=== PATIENT | female | born 1955 | race Caucasian/White ===

== ENCOUNTER 2017-07-24 15:07 | Inpatient (IN) | payer MEDICARE, OTHER ==
[2017-07-24 17:29] LABS: Glucose,Whole Blood 192 mg/dL (75-99)
[2017-07-24 17:38] VITALS: BMI 30.4
[2017-07-24 19:06] LABS: INR 1.7 (<1.2); Prothrombin Time 16.3 sec (9.0-12.0)
[2017-07-24] MEDS: HYDROcodone/APAP 10-325MG 1 EACH TAB PO PRN (19:09)
[2017-07-24] MEDS ORDERED: WARFARIN 10 MG TAB PO ONE (20:00)
[2017-07-24] MEDS: BUDESONIDE 0.5 MG/2 ML NEBU INHALATION SCH (20:30)
[2017-07-24] MEDS: FORMOTEROL FUMARATE 20 MCG/2 ML NEBU INHALATION SCH (20:30)
[2017-07-24] MEDS: IPRATROPIUM-ALBUTEROL 3 ML NEB INHALATION SCH (20:30)
[2017-07-24] MEDS: ENOXAPARIN 80 MG/0.8 ML SYRINGE SQ SCH (21:09)
[2017-07-24] MEDS: MELATONIN 3 MG TABLET PO SCH (21:10)
[2017-07-24 21:23] LABS: Glucose,Whole Blood 157 mg/dL (75-99)
[2017-07-24] MEDS: INSULIN LISPRO (humaLOG) 300 UNIT/3 ML VIAL SQ SCH (21:54)
[2017-07-24] MEDS: methylPREDNISolone SOD SUCCI 40 MG/ML 1 ML VIAL IV SCH (23:40)
[2017-07-24] MEDS: ALBUTEROL NEBULIZED 2.5 MG/3 ML INHALATION PRN (23:56)
[2017-07-25] MEDS: HYDROcodone/APAP 10-325MG 1 EACH TAB PO PRN ×5 (00:03→23:19)
[2017-07-25 02:06] LABS: Glucose,Whole Blood 246 mg/dL (75-99)
[2017-07-25] MEDS: INSULIN LISPRO (humaLOG) 300 UNIT/3 ML VIAL SQ SCH ×5 (02:20→20:45)
[2017-07-25] MEDS: FORMOTEROL FUMARATE 20 MCG/2 ML NEBU INHALATION SCH ×2 (07:04→07:10)
[2017-07-25] MEDS: BUDESONIDE 0.5 MG/2 ML NEBU INHALATION SCH (07:04)
[2017-07-25] MEDS: IPRATROPIUM-ALBUTEROL 3 ML NEB INHALATION SCH ×2 (07:04→11:04)
[2017-07-25 07:34] LABS: Glucose,Whole Blood 141 mg/dL (75-99)
[2017-07-25] MEDS: ENOXAPARIN 80 MG/0.8 ML SYRINGE SQ SCH (08:24)
[2017-07-25] MEDS: VALSARTAN 160 MG TAB PO SCH (08:24)
[2017-07-25] MEDS: methylPREDNISolone SOD SUCCI 40 MG/ML 1 ML VIAL IV SCH ×3 (08:24→23:19)
[2017-07-25 10:39] LABS: Basophils % (A) 0 %; CH 29.3; CHCM 32.2; Eosinophils % (A) 0 %; HCT 39.9 % (34.0-46.0); HDW 2.88; HGB 13.2 gm/dL (11.4-16.0); Luc % (Auto) 2; Lymphocytes # (A) 1.4 k/uL (1.0-4.8); Lymphocytes % (A) 13 %; MCH 30.3 pg (25.0-35.0); MCHC 33.1 g/dL (31.0-37.0); MCV 91.7 fL (80.0-100.0); Mean Platelet Volume 6.8; Monocytes # (A) 0.6 k/uL (0-1.0); Monocytes % (A) 5 %; Neutrophils # (A) 9.2 k/uL (1.3-7.7); Neutrophils % (A) 81 %; RBC 4.35 m/uL (3.80-5.40); RDW 13.1 % (11.5-15.5); WBC 11.4 k/uL (3.8-10.6); WBC (Perox) 11.91
[2017-07-25 11:08] LABS: ALT 33 U/L (9-52); AST 21 U/L (14-36); Alkaline Phosphatase 141 U/L (38-126); Anion Gap 11 mmol/L; Blood Urea Nitrogen 31 mg/dL (7-17); Calcium 9.5 mg/dL (8.4-10.2); Carbon Dioxide 23 mmol/L (22-30); Chloride 105 mmol/L (98-107); Glucose 141 mg/dL (74-99); Non-African American GFR(MDRD) >60 (>60 ml/min/1.73 sqM); Potassium 4.8 mmol/L (3.5-5.1); Sodium 139 mmol/L (137-145); Total Bilirubin 0.4 mg/dL (0.2-1.3); Total Protein 6.9 g/dL (6.3-8.2)
[2017-07-25 12:04] LABS: Prothrombin Time 19.2 sec (9.0-12.0)
[2017-07-25 12:25] LABS: Glucose,Whole Blood 126 mg/dL (75-99)
--- NOTE | 2017-07-25 13:11 | P.CNPUL ---
History of Present Illness Consult date: 07/25/17 Reason for consult: dyspnea, cough, COPD, hypoxemia, pulmonary embolism Chief complaint: Shortness of breath. History of present illness: Consult dated 07/25/2017 62-year-old female who sees Dr. Trevon Rand as her primary doctor. I see her for her COPD. She is a 62-year-old female with a history of chronic tobacco use. She has pretty swelling but COPD. She's on a number different medications at home for her COPD including Spiriva and albuterol and Dulera. The patient is also on oxygen therapy 24 7. The patient has a history of chronic tobacco abuse. The patient also has a history of chronic pain syndrome. The patient presented to the emergency room complaints of shortness of breath. She is also congested. Coughing up small clots of blood. No fever no chills. No nausea vomiting or diarrhea. No chest pain. He is admitted with a diagnosis of COPD exacerbation. Also, according to the primary service, she initially had a CT angiogram which is negative for PE and the subsequent CTA angiogram which apparently showed blood clot. Review of Systems A 12 point review of system is positive for shortness breath chest congestion coughing and coughing up small clots of blood. No fever no chills. No chest pain. She does have quite severe COPD. Past Medical History Past Medical History: COPD, Deep Vein Thrombosis (DVT), Musculoskeletal Disorder , Pneumonia, Pulmonary Embolus (PE) Additional Past Medical History / Comment(s): CELLULITIS/BLOOD CLOTTING DISORDER /DEGENERATIVE DISC DISEASE/DISC DETERIORATION History of Any Multi-Drug Resistant Organisms: MRSA Date of last positivie culture/infection: 2014 MDRO Source:: WOUND ON ARM Past Surgical History: Adenoidectomy, Appendectomy, Bladder Surgery, Cholecystectomy, Tonsillectomy Past Anesthesia/Blood Transfusion Reactions: No Reported Reaction Past Psychological History: Anxiety Smoking Status: Former smoker Past Alcohol Use History: None Reported Medications and Allergies Home Medications Medication Instructions Recorded Confirmed Type Albuterol Inhaler [Ventolin Hfa 1 - 2 puff INHALATION RT-Q6H PRN 07/24/17 History Inhaler] Furosemide [Lasix] 40 mg PO DAILY 07/24/17 07/24/17 History HYDROcodone/APAP 10-325MG [[place] 1 tab PO Q4H PRN 07/24/17 07/24/17 History 10-325] Hydrochlorothiazide 12.5 mg PO DAILY 07/24/17 07/24/17 History Ipratropium [place] [Atrovent Hfa] 2 puff INHALATION RT-QID 07/24/17 07/24/17 History Mometasone/Formoterol [Dulera 200 2 puff INHALATION RT-BID 07/24/17 07/24/17 History Mcg/5 Mcg Inhaler] Potassium Chloride [Klor-Con 10] 10 meq PO DAILY 07/24/17 07/24/17 History Tiotropium [place] [Spiriva] 1 cap INHALATION RT-DAILY 07/24/17 07/24/17 History Valsartan [Diovan] 160 mg PO DAILY 07/24/17 07/24/17 History Warfarin [Coumadin] 5 mg PO SUMOTUTHFRSA 07/24/17 07/24/17 History Warfarin [Coumadin] 7.5 mg PO WE 07/24/17 07/24/17 History traMADol HCL [Ultram] 50 mg PO BID PRN 07/24/17 07/24/17 History Allergies Allergy/AdvReac Type Severity Reaction Status Date / Time fluticasone Allergy Anaphylaxis Verified 07/24/17 18:08 [From Advair Diskus] salmeterol Allergy Anaphylaxis Verified 07/24/17 18:08 [From Advair Diskus] Physical Exam Osteopathic Statement: *. No significant issues noted on an osteopathic structural exam other than those noted in the History and Physical/Consult. Vitals: Vital Signs Temp Pulse Pulse Resp BP Pulse Ox 07/25/17 11:19 104 H 07/25/17 11:04 102 H 07/25/17 07:25 104 H 07/25/17 07:08 100 93 L 07/25/17 07:00 97.2 F L 103 H 24 150/98 93 L 07/24/17 23:57 100 07/24/17 23:00 97.0 F L 98 16 148/70 95 07/24/17 20:54 108 H 07/24/17 20:32 104 H 07/24/17 17:36 96.9 F L 112 H 20 134/70 94 L Intake and Output 07/24/17 07/25/17 07/25/17 22:59 06:59 14:59 Other: Voiding Method Toilet Bedside Commode # Voids 1 1 2 Weight 83.007 kg No acute distress, mildly tachypneic. Wearing O2. HEENT examination is grossly unremarkable. Mucous membranes are moist. Teeth are in poor repair. Neck supple. Full range of motion. No adenopathy. Cardiovascular examination reveals regular rhythm rate. S1-S2 normal. Mildly tachycardic. No murmur. Lungs reveal some expiratory wheezes or rhonchi. Breath sounds are diminished. This prolongation on forced maneuver. The patient wheezes and coughs on forced maneuver. Abdomen soft bowel sounds are heard. Extremities are intact. No cyanosis clubbing or edema. Skin without rash. Neurologic examination is nonfocal. Results - Laboratory Findings CBC and BMP: 07/25/17 10:21 07/25/17 10:21 PT/INR, D-dimer PT 19.2 sec (9.0-12.0) H 07/25/17 10:21 INR 2.0 (<1.2) H 07/25/17 10:21 Abnormal lab findings: Abnormal Labs 07/24/17 07/24/17 07/24/17 17:26 18:46 21:21 WBC Neutrophils # PT 16.3 H INR 1.7 H BUN Glucose POC Glucose (mg/dL) 192 H 157 H Alkaline Phosphatase 07/25/17 07/25/17 07/25/17 02:02 07:28 10:21 WBC Neutrophils # PT 19.2 H INR 2.0 H BUN Glucose POC Glucose (mg/dL) 246 H 141 H Alkaline Phosphatase 07/25/17 07/25/17 07/25/17 10:21 10:21 12:22 WBC 11.4 H Neutrophils # 9.2 H PT INR BUN 31 H Glucose 141 H POC Glucose (mg/dL) 126 H Alkaline Phosphatase 141 H - Diagnostic Findings Comments: Labs are reviewed. Assessment and Plan (1) Pulmonary embolism Status: Acute (2) Chronic hypoxemic respiratory failure Status: Acute (3) Acute on chronic respiratory failure with hypoxemia Status: Acute (4) Hypoxemic respiratory failure, chronic Status: Acute (5) Pulmonary hypertension Status: Acute (6) Cor pulmonale Status: Acute (7) COPD with acute exacerbation Status: Acute Plan: Plan dated 07/25/2017 The patient's medications will be reviewed. Additional recommendations suggestions are forthcoming. We'll see if we can get the scans and x-rays that were done at the other hospital. Please see my orders. Recommendations are made. Prognosis is guarded. Time with Patient: Greater than 30
[2017-07-25] MEDS: TIOTROPIUM 18 MCG/PUFF INHALER INHALATION SCH (13:51)
--- NOTE | 2017-07-25 14:32 | P.HPIM ---
History of Present Illness H&P Date: 07/25/17 Chief Complaint: noe 62 yr old that is transferred from [facility] with persistent noe, pt was admitted to that facility due to acute exacerbation of copd pt underwent 2 ct scans to rule out PE. Pt was subtherapeutic in regards to her INR Pt comes into the hospital, states to have a cough, non productive in nature, however is requiring 3-4 l of o2. at baseline she uses [address] Almendarez outpatient . Medications were reconciled. One dose of coumadin 10mg was give INR is appropriate today, was titrated of heparin that was started at [facility] due to questionable right segmental PE. Pt was started on lovenox briefly No other complaints reported Pt states she has severe anxiety Review of Systems All systems: negative (noted in HPI) Past Medical History Past Medical History: COPD, Deep Vein Thrombosis (DVT), Musculoskeletal Disorder , Pneumonia, Pulmonary Embolus (PE) Additional Past Medical History / Comment(s): CELLULITIS/BLOOD CLOTTING DISORDER /DEGENERATIVE DISC DISEASE/DISC DETERIORATION History of Any Multi-Drug Resistant Organisms: MRSA Date of last positivie culture/infection: 2014 MDRO Source:: WOUND ON ARM Past Surgical History: Adenoidectomy, Appendectomy, Bladder Surgery, Cholecystectomy, Tonsillectomy Past Anesthesia/Blood Transfusion Reactions: No Reported Reaction Past Psychological History: Anxiety Smoking Status: Former smoker Past Alcohol Use History: None Reported Medications and Allergies Home Medications Medication Instructions Recorded Confirmed Type Albuterol Inhaler [Ventolin Hfa 1 - 2 puff INHALATION RT-Q6H PRN 07/24/17 History Inhaler] Furosemide [Lasix] 40 mg PO DAILY 07/24/17 07/24/17 History HYDROcodone/APAP 10-325MG [[place] 1 tab PO Q4H PRN 07/24/17 07/24/17 History 10-325] Hydrochlorothiazide 12.5 mg PO DAILY 07/24/17 07/24/17 History Ipratropium [place] [Atrovent Hfa] 2 puff INHALATION RT-QID 07/24/17 07/24/17 History Mometasone/Formoterol [Dulera 200 2 puff INHALATION RT-BID 07/24/17 07/24/17 History Mcg/5 Mcg Inhaler] Potassium Chloride [Klor-Con 10] 10 meq PO DAILY 07/24/17 07/24/17 History Tiotropium [place] [Spiriva] 1 cap INHALATION RT-DAILY 07/24/17 07/24/17 History Valsartan [Diovan] 160 mg PO DAILY 07/24/17 07/24/17 History Warfarin [Coumadin] 5 mg PO SUMOTUTHFRSA 07/24/17 07/24/17 History Warfarin [Coumadin] 7.5 mg PO WE 07/24/17 07/24/17 History traMADol HCL [Ultram] 50 mg PO BID PRN 07/24/17 07/24/17 History Allergies Allergy/AdvReac Type Severity Reaction Status Date / Time fluticasone Allergy Anaphylaxis Verified 07/24/17 18:08 [From Advair Diskus] salmeterol Allergy Anaphylaxis Verified 07/24/17 18:08 [From Advair Diskus] Physical Exam Vitals: Vital Signs Temp Pulse Pulse Resp BP Pulse Ox 07/25/17 11:19 104 H 07/25/17 11:04 102 H 07/25/17 07:25 104 H 07/25/17 07:08 100 93 L 07/25/17 07:00 97.2 F L 103 H 24 150/98 93 L 07/24/17 23:57 100 07/24/17 23:00 97.0 F L 98 16 148/70 95 07/24/17 20:54 108 H 07/24/17 20:32 104 H 07/24/17 17:36 96.9 F L 112 H 20 134/70 94 L Intake and Output 07/24/17 07/25/17 07/25/17 22:59 06:59 14:59 Other: Voiding Method Toilet Bedside Commode # Voids 1 1 2 Weight 83.007 kg - Constitutional General appearance: no acute distress - EENT Eyes: PERRLA - Neck Neck: normal ROM - Respiratory Respiratory: bilateral: diminished, dullness, rales, wheezing - Cardiovascular Rhythm: regular Heart sounds: normal: S1, S2 Abnormal Heart Sounds: no systolic murmur - Integumentary Integumentary: normal - Neurologic Neurologic: CNII-XII intact Results CBC & Chem 7: 07/25/17 10:21 07/25/17 10:21 Labs: Abnormal Lab Results - Last 24 Hours (Table) 07/24/17 07/24/17 07/24/17 Range/Units 17:26 18:46 21:21 WBC (3.8-10.6) k/uL Neutrophils # (1.3-7.7) k/uL PT 16.3 H (9.0-12.0) sec INR 1.7 H (<1.2) BUN (7-17) mg/dL Glucose (74-99) mg/dL POC Glucose (mg/dL) 192 H 157 H (75-99) mg/dL Alkaline Phosphatase (38-126) U/L 07/25/17 07/25/17 07/25/17 Range/Units 02:02 07:28 10:21 WBC (3.8-10.6) k/uL Neutrophils # (1.3-7.7) k/uL PT 19.2 H (9.0-12.0) sec INR 2.0 H (<1.2) BUN (7-17) mg/dL Glucose (74-99) mg/dL POC Glucose (mg/dL) 246 H 141 H (75-99) mg/dL Alkaline Phosphatase (38-126) U/L 07/25/17 07/25/17 07/25/17 Range/Units 10:21 10:21 12:22 WBC 11.4 H (3.8-10.6) k/uL Neutrophils # 9.2 H (1.3-7.7) k/uL PT (9.0-12.0) sec INR (<1.2) BUN 31 H (7-17) mg/dL Glucose 141 H (74-99) mg/dL POC Glucose (mg/dL) 126 H (75-99) mg/dL Alkaline Phosphatase 141 H (38-126) U/L Thrombosis Risk Factor Assmnt - Choose All That Apply Any of the Below Risk Factors Present?: Yes Each Factor Represents 1 point: Swollen legs (current) Other Risk Factors: Yes Each Risk Factor Represents 2 Points: Age 61-74 years Each Risk Factor Represents 3 Points: Family history of DVT/PE, History of DVT/ PE, Positive Lupus Anticoagulant Other congenital or acquired thrombophilia - If yes, enter type in comment: Yes Thrombosis Risk Factor Assessment Total Risk Factor Score: 12 Thrombosis Risk Factor Assessment Level: High Risk Assessment and Plan Plan: Acute exacerbation of COPD due to bronchitis H/o of VTE acute on chronic hypoxic respiratory failure HTN Dyslipidemia Plan breathing tx oral abx restart home regimen of coumadin today, novel anticoagulants were offered however pt refused them pulmonary hygeine pulm eval
[2017-07-25] MEDS: ALBUTEROL NEBULIZED 2.5 MG/3 ML INHALATION SCH ×2 (15:01→19:40)
[2017-07-25 16:48] LABS: Glucose,Whole Blood 135 mg/dL (75-99)
[2017-07-25] MEDS ORDERED: WARFARIN 5 MG TAB PO SCH (18:00)
[2017-07-25] MEDS: SYMBICORT 160-4.5 MCG INHALER INHALATION SCH (19:40)
[2017-07-25] MEDS ORDERED: SYMBICORT 160-4.5 MCG INHALER INHALATION SCH (20:00)
[2017-07-25] MEDS ORDERED: BUDESONIDE 1 MG/2 ML NEBU INHALATION SCH (20:00)
[2017-07-25 20:40] LABS: Glucose,Whole Blood 163 mg/dL (75-99)
[2017-07-25] MEDS: MELATONIN 3 MG TABLET PO SCH (23:18)
[2017-07-26] MEDS: ALBUTEROL NEBULIZED 2.5 MG/3 ML INHALATION PRN (00:22)
[2017-07-26 02:15] LABS: Glucose,Whole Blood 222 mg/dL (75-99)
[2017-07-26] MEDS: INSULIN LISPRO (humaLOG) 300 UNIT/3 ML VIAL SQ SCH ×4 (03:01→17:17)
[2017-07-26 05:37] LABS: Glucose,Whole Blood 149 mg/dL (75-99)
[2017-07-26 07:31] LABS: Glucose,Whole Blood 138 mg/dL (75-99)
[2017-07-26] MEDS: VALSARTAN 160 MG TAB PO SCH (07:58)
[2017-07-26] MEDS: HYDROcodone/APAP 10-325MG 1 EACH TAB PO PRN ×2 (07:59→14:18)
[2017-07-26] MEDS: methylPREDNISolone SOD SUCCI 40 MG/ML 1 ML VIAL IV SCH ×2 (07:59→17:27)
[2017-07-26] MEDS ORDERED: AZITHROMYCIN 250 MG TAB PO SCH (09:00)
[2017-07-26] MEDS: ALBUTEROL NEBULIZED 2.5 MG/3 ML INHALATION SCH ×4 (09:14→17:54)
[2017-07-26] MEDS: TIOTROPIUM 18 MCG/PUFF INHALER INHALATION SCH (09:15)
[2017-07-26] MEDS: SYMBICORT 160-4.5 MCG INHALER INHALATION SCH ×2 (09:15→17:54)
--- NOTE | 2017-07-26 11:42 | P.PN ---
Subjective Progress note dated 07/26/2017 62-year-old female who sees Dr. Trevon Rand is her primary doctor. Has a history of underlying COPD. Has a history of ongoing heavy tobacco use. Anyway the patient comes in with complaints of increasing shortness of breath. In addition, she was coughing up a small blood clots. She apparently had a CT angiogram done at the outside hospital which showed pulmonary embolism. This was despite the fact that she was supratherapeutic on her Coumadin and her PT/ INR was actually prolong. The patient is doing better. Feeling better. She was stented treated in standard fashion. I think at typically see her and [facility] every 4-6 months. In addition she has a history of the DVT pneumonia cellulitis. Objective - Vital Signs Vital signs: Vital Signs Temp 96.8 F L 07/26/17 07:00 Pulse 84 07/26/17 09:25 Resp 20 07/26/17 07:00 BP 152/91 07/26/17 07:00 Pulse Ox 96 07/26/17 07:00 Intake & Output 07/25/17 07/26/17 07/26/17 18:59 06:59 18:59 Other: Voiding Method Toilet Bedside Commode # Voids 1 1 # Bowel Movements 1 - Exam No acute distress, oriented 3. HEENT examinations unremarkable. Teeth are in poor repair. Next memory is are moist. Neck supple. Full range of motion. No adenopathy. Neck veins are not distended. Cardiovascular examination reveals distant heart sounds. S1-S2 normal. No distinct murmur. No S3-S4. Lungs reveal clear but somewhat diminished breath sounds. She does have a few scattered rhonchi and forced maneuver. No crackles. Sounds are equal. Abdomen soft bowel sounds are heard. Extremities are intact. No cyanosis clubbing or edema. Skin without rash. - Labs CBC & Chem 7: 07/25/17 10:21 07/25/17 10:21 Labs: Abnormal Lab Results - Last 24 Hours (Table) 07/25/17 07/25/17 07/25/17 Range/Units 10:21 12:22 16:47 PT 19.2 H (9.0-12.0) sec INR 2.0 H (<1.2) POC Glucose (mg/dL) 126 H 135 H (75-99) mg/dL 07/25/17 07/26/17 07/26/17 Range/Units 20:37 02:12 05:33 PT (9.0-12.0) sec INR (<1.2) POC Glucose (mg/dL) 163 H 222 H 149 H (75-99) mg/dL 07/26/17 Range/Units 07:28 PT (9.0-12.0) sec INR (<1.2) POC Glucose (mg/dL) 138 H (75-99) mg/dL Assessment and Plan (1) Pulmonary embolism Status: Acute (2) Chronic hypoxemic respiratory failure Status: Acute (3) Acute on chronic respiratory failure with hypoxemia Status: Acute (4) Hypoxemic respiratory failure, chronic Status: Acute (5) Pulmonary hypertension Status: Acute (6) Cor pulmonale Status: Acute (7) COPD with acute exacerbation Status: Acute Plan: Plan dated 07/25/2017 The patient's medications will be reviewed. Additional recommendations suggestions are forthcoming. We'll see if we can get the scans and x-rays that were done at the other hospital. Please see my orders. Recommendations are made. Prognosis is guarded. Plan dated 07/26/2017 The patient's medications were adjusted yesterday. She is on the usual COPD exacerbation cocktail. Additional recommendations suggestions are forthcoming. We are still waiting for the patient the outside hospital. I just want to check that CT angiogram which apparently showed small subsegmental pulmonary emboli. Time with Patient: Less than 30
[2017-07-26 12:02] LABS: Glucose,Whole Blood 170 mg/dL (75-99)
[2017-07-26 12:24] LABS: Anion Gap 8 mmol/L; Blood Urea Nitrogen 31 mg/dL (7-17); Carbon Dioxide 26 mmol/L (22-30); Chloride 106 mmol/L (98-107); Glucose 214 mg/dL (74-99); Non-African American GFR(MDRD) >60 (>60 ml/min/1.73 sqM); Sodium 140 mmol/L (137-145)
[2017-07-26 12:28] LABS: INR 3.3 (<1.2); Prothrombin Time 31.9 sec (9.0-12.0)
[2017-07-26 14:36] VITALS: BP 174/79; RESP 22; TEMP 97
[2017-07-26 17:13] LABS: Glucose,Whole Blood 105 mg/dL (75-99)
--- NOTE | 2017-07-26 17:21 | P.DS ---
Providers Date of admission: 07/24/17 17:13 Expected date of discharge: 07/26/17 Attending physician: MD Dr. Anastasiya Enriquez Consults: 07/24/17 18:19 Consult Physician Routine Consulting Provider: Lazaro Almendarez Consult Reason/Comments: sob/copd Do you want consulting provider notified?: Yes Primary care physician: MD Dr. Giorgi Enriquez Hospital Course: Final Diagnoses: Acute exacerbation of COPD due to bronchitis questionable right segmental PE, H/o of VTE acute on chronic hypoxic respiratory failure HTN Dyslipidemia Hospital course:62 yr old that is transferred from [facility] with persistent noe, pt was admitted to that facility due to acute exacerbation of copd pt underwent 2 ct scans to rule out PE. Pt was subtherapeutic in regards to her INR. Pt comes into the hospital, states to have a cough, non productive in nature, however is requiring 3-4 l of o2. at baseline she uses [address] Almendarez outpatient . heparin that was started at [facility] due to questionable right segmental PE, titrated off. Pt was started on lovenox briefly.restarted home regimen of coumadin, novel anticoagulants were offered,however pt refused them. Evaluated and cleared by pulmonary for discharge. Anticoagulation as per pulmonary. Patient is being discharged home in a stable condition with guarded prognosis. The impression and plan of care has been dictated as directed. : I performed a H&P examination of this patient and discussed the same with the dictator. I agree with the dictator's note. Any additional findings/opinions/ etc. will be noted. Patient Condition at Discharge: Stable Plan - Discharge Summary New Discharge Prescriptions: New Azithromycin [Zithromax] 250 mg PO DAILY #5 tab predniSONE 10 mg PO DIRECTED #30 tab Continue Ipratropium [place] [Atrovent Hfa] 2 puff INHALATION RT-QID traMADol HCL [Ultram] 50 mg PO BID PRN PRN Reason: Pain Albuterol Inhaler [Ventolin Hfa Inhaler] 1 - 2 puff INHALATION RT-Q6H PRN PRN Reason: Pain Valsartan [Diovan] 160 mg PO DAILY Tiotropium [place] [Spiriva] 1 cap INHALATION RT-DAILY Furosemide [Lasix] 40 mg PO DAILY HYDROcodone/APAP 10-325MG [[place] 10-325] 1 tab PO Q4H PRN PRN Reason: Pain Mometasone/Formoterol [Dulera 200 Mcg/5 Mcg Inhaler] 2 puff INHALATION RT-BID Changed Warfarin [Coumadin] 5 mg PO DAILY@1800 #1 Discontinued Hydrochlorothiazide 12.5 mg PO DAILY Warfarin [Coumadin] 7.5 mg PO WE Potassium Chloride [Klor-Con 10] 10 meq PO DAILY Discharge Medication List Albuterol Inhaler [Ventolin Hfa Inhaler] 1 - 2 puff INHALATION RT-Q6H PRN [History] Furosemide [Lasix] 40 mg PO DAILY 07/24/17 [History] HYDROcodone/APAP 10-325MG [[place] 10-325] 1 tab PO Q4H PRN 07/24/17 [History] Ipratropium [place] [Atrovent Hfa] 2 puff INHALATION RT-QID 07/24/17 [History] Mometasone/Formoterol [Dulera 200 Mcg/5 Mcg Inhaler] 2 puff INHALATION RT-BID [History] Tiotropium [place] [Spiriva] 1 cap INHALATION RT-DAILY 07/24/17 [History] Valsartan [Diovan] 160 mg PO DAILY 07/24/17 [History] traMADol HCL [Ultram] 50 mg PO BID PRN 07/24/17 [History] Azithromycin [Zithromax] 250 mg PO DAILY #5 tab 07/26/17 [Rx] Warfarin [Coumadin] 5 mg PO DAILY@1800 #1 07/26/17 [Rx] predniSONE 10 mg PO DIRECTED #30 tab 07/26/17 [Rx] Follow up Appointment(s)/Referral(s): Lazaro Almendarez DO [Doctor of Osteopathic Medicine] - 10 Days Trevon Rand MD [REFERRING] - 3 Days Ambulatory/Diagnostic Orders: Prothrombin Time INR [LAB.AMB] Time Frame: 3 Days, Location: Determined By Patient Patient Instructions/Handouts: COPD (Chronic Obstructive Pulmonary Disease) (DC ) Activity/Diet/Wound Care/Special Instructions: 2lncO2 as at home anticoagulation as per pulmonary resume coumadin tomorrow COntinue HCTZ as prev. RX'd. A and D Home care:[phone] Diet: Coumadin DIET Activity: Limited until follow up
[2017-07-26 17:57] VITALS: PULSE 85
[2017-07-31] MEDS ORDERED: WARFARIN 7.5 MG TAB PO SCH (18:00)
== END 2017-07-26 19:55 | disposition home health service (06) | DRG 190 ==
LOC: 4MS4W 17:13
PROVIDERS: ADMIT Internal Medicine; ATTEND Internal Medicine
DX: J44.1 Chronic obstructive pulmonary disease with (acute) exacerbation (principal); I26.99 Other pulmonary embolism without acute cor pulmonale; J96.21 Acute and chronic respiratory failure with hypoxia; I27.2 Other secondary pulmonary hypertension; J44.0 Chronic obstructive pulmonary disease with (acute) lower respiratory infection; E78.5 Hyperlipidemia, unspecified; F41.9 Anxiety disorder, unspecified; G89.4 Chronic pain syndrome; I10 Essential (primary) hypertension; I27.81 Cor pulmonale (chronic); Z79.01 Long term (current) use of anticoagulants; Z79.899 Other long term (current) drug therapy; Z87.891 Personal history of nicotine dependence; Z86.718 Personal history of other venous thrombosis and embolism; J40 Bronchitis, not specified as acute or chronic
CPT/HCPCS: 80048; 80053; 85025; 85610; 94640; 94760

== ENCOUNTER 2017-10-01 14:27 | Inpatient (IN) | payer MEDICARE, OTHER ==
--- NOTE | 2017-10-01 15:44 | ED ---
General Adult HPI - General Chief complaint: Shortness of Breath Stated complaint: Diff Breathing Time Seen by Provider: 10/01/17 14:34 Source: patient, EMS, RN notes reviewed, old records reviewed Mode of arrival: EMS Limitations: no limitations - History of Present Illness Initial comments: 62-year-old female presenting from [place] emergency department. Patient was transferred with diagnosis of ASSOCIATED pneumonia, COPD exacerbation, and non- ST segment elevated myocardial infarction. Patient presented to emergency department with chief complaint of chest pain and shortness of breath. Patient was found to be febrile temperature of 102, heart rate in the 150s. This was sinus tachycardia. She was initially placed on BiPAP. Patient reported chest pain is sharp in nature. Worse with cough. She also complains of chills. Cough and difficult to breathing progressed over the past 3 days. Patient does have history of COPD and is on home oxygen. - Related Data Home Medications Medication Instructions Recorded Confirmed Albuterol Inhaler [Ventolin Hfa 2 puff INHALATION RT-Q6H PRN 07/24/17 10/01/17 Inhaler] Furosemide [Lasix] 40 mg PO DAILY 07/24/17 10/01/17 HYDROcodone/APAP 10-325MG [[place] 1 tab PO QID PRN 07/24/17 10/01/17 10-325] Ipratropium [place] [Atrovent Hfa] 2 puff INHALATION RT-QID 07/24/17 10/01/17 Mometasone/Formoterol [Dulera 200 2 puff INHALATION RT-BID 07/24/17 10/01/17 Mcg/5 Mcg Inhaler] Tiotropium [place] [Spiriva] 1 cap INHALATION RT-DAILY 07/24/17 10/01/17 Valsartan [Diovan] 160 mg PO DAILY 07/24/17 10/01/17 traMADol HCL [Ultram] 50 mg PO BID PRN 07/24/17 10/01/17 Potassium Chloride [K-Tab ER] 10 meq PO DAILY 10/01/17 10/01/17 Warfarin [Coumadin] 5 mg PO DAILY 10/01/17 10/01/17 Allergies Allergy/AdvReac Type Severity Reaction Status Date / Time fluticasone Allergy Anaphylaxis Verified 10/01/17 14:54 [From Advair Diskus] salmeterol Allergy Anaphylaxis Verified 10/01/17 14:54 [From Advair Diskus] Review of Systems ROS Statement: Those systems with pertinent positive or pertinent negative responses have been documented in the HPI. ROS Other: All systems not noted in ROS Statement are negative. Past Medical History Past Medical History: COPD, Deep Vein Thrombosis (DVT), Musculoskeletal Disorder , Pneumonia, Pulmonary Embolus (PE) Additional Past Medical History / Comment(s): CELLULITIS/BLOOD CLOTTING DISORDER /DEGENERATIVE DISC DISEASE/DISC DETERIORATION History of Any Multi-Drug Resistant Organisms: MRSA Date of last positivie culture/infection: 2014 MDRO Source:: WOUND ON ARM Past Surgical History: Adenoidectomy, Appendectomy, Bladder Surgery, Cholecystectomy, Tonsillectomy Past Anesthesia/Blood Transfusion Reactions: No Reported Reaction Past Psychological History: Anxiety Smoking Status: Former smoker Past Alcohol Use History: None Reported General Exam Limitations: no limitations General appearance: alert, in distress Head exam: Present: atraumatic, normocephalic Eye exam: Present: normal appearance, PERRL ENT exam: Present: normal exam Neck exam: Present: normal inspection. Absent: tenderness Respiratory exam: Present: wheezes, rhonchi, decreased breath sounds, prolonged expiratory Cardiovascular Exam: Present: regular rate, normal rhythm GI/Abdominal exam: Present: soft. Absent: distended, tenderness Extremities exam: Present: normal inspection, normal capillary refill. Absent: pedal edema, calf tenderness Neurological exam: Present: alert, oriented X3. Absent: motor sensory deficit Psychiatric exam: Present: normal affect, normal mood Skin exam: Present: warm, dry, intact. Absent: cyanosis, diaphoretic Course Vital Signs 10/01/17 10/01/17 10/01/17 14:41 14:44 15:17 Temperature 97.3 F L Pulse Rate 96 93 Respiratory 26 H 26 H 26 H Rate Blood Pressure 103/57 111/56 O2 Sat by Pulse 96 95 Oximetry EKG Findings - EKG Comments: EKG Findings:: EKG shows normal sinus rhythm, ventricular rate 98, para 126, QRS duration 100, QTC 444, there is an incomplete right bundle-branch block, no ST segment elevation Medical Decision Making - Medical Decision Making 62-year-old female with COPD presenting as transfer. Patient diagnosed with right middle lobe pneumonia. She was given Zosyn and Levaquin prior to transfer. She was also given Cardizem and Lopressor for heart rate control. Laboratory studies reveal white blood cell count 18,000, hemoglobin stable 12.6 , lactic acid normal 1.2, troponin mildly elevated 0.18. Electrolytes reveal sodium 140, potassium 4.7 magnesium 1.4 which was replaced. Creatinine is normal at 0.6. INR therapeutic 2.13. Patient did also receive a dose of Lovenox prior to transfer. Case is discussed with Dr. Langford who was able to evaluate the patient in the emergency department, he will accept admission. Diagnosis: Healthcare associated pneumonia, COPD exacerbation with hypoxia, NSTEMI Critical Care Time Critical Care Time: Yes Total Critical Care Time: 35 Disposition Clinical Impression: Acute exacerbation of chronic obstructive airways disease, Non-STEMI (non-ST elevated myocardial infarction), Healthcare-associated pneumonia Disposition: ADMITTED IP TO THIS HOSP Condition: Serious Referrals: Trevon Rand MD [Primary Care Provider] - 1-2 days Decision to Admit Reason: Admit from EC Decision Date: 10/01/17 Decision Time: 15:43
[2017-10-01] MEDS ORDERED: PNEUMONIA PROTOCOL UTILIZED 1 EACH MISC PO PRN (16:00)
[2017-10-01] MEDS ORDERED: traMADol 50 MG TAB PO PRN (16:04)
[2017-10-01] MEDS: IPRATROPIUM-ALBUTEROL 3 ML NEB INHALATION SCH ×2 (16:10→21:33)
--- NOTE | 2017-10-01 16:13 | P.HPIM ---
History of Present Illness 62-year-old female with known history of COPD came in with complaints of chest pain and generalized tiredness weakness cough unable to bring up anything patient's chest pain is pleuritic in nature increases with deep breathing patient has history of pulmonary embolism in the past for which patient is on Coumadin patient was febrile at 102 patient has minimally elevated troponin 0.04 because of which patient was transferred here. Patient is wheezing on exam patient has generalized weakness and tiredness. Patient does have leukocytosis. Patient was comparing of shortness of breath denied any orthopnea PND Review of Systems REVIEW OF SYSTEMS: CONSTITUTIONAL: As mentioned in HPI HEENT: No recent visual problems or hearing problems. Denied any sore throat. CARDIOVASCULAR: No orthopnea, PND, no palpitations, no syncope. PULMONARY: no hemoptysis. GASTROINTESTINAL: No diarrhea, no nausea, no vomiting, no abdominal pain. Normoactive bowel sounds. NEUROLOGICAL: No headaches, no weakness, no numbness. HEMATOLOGICAL: Denies any bleeding or petechiae. GENITOURINARY: Denies any burning micturition, frequency, or urgency. MUSCULOSKELETAL/RHEUMATOLOGICAL: Denies any joint pain, swelling, or any muscle pain. ENDOCRINE: Denies any polyuria or polydipsia. The rest of the 14-point review of systems is negative. Past Medical History Past Medical History: COPD, Deep Vein Thrombosis (DVT), Musculoskeletal Disorder , Pneumonia, Pulmonary Embolus (PE) Additional Past Medical History / Comment(s): CELLULITIS/BLOOD CLOTTING DISORDER /DEGENERATIVE DISC DISEASE/DISC DETERIORATION History of Any Multi-Drug Resistant Organisms: MRSA Date of last positivie culture/infection: 2014 MDRO Source:: WOUND ON ARM Past Surgical History: Adenoidectomy, Appendectomy, Bladder Surgery, Cholecystectomy, Tonsillectomy Past Anesthesia/Blood Transfusion Reactions: No Reported Reaction Past Psychological History: Anxiety Smoking Status: Former smoker Past Alcohol Use History: None Reported Medications and Allergies Home Medications Medication Instructions Recorded Confirmed Type Albuterol Inhaler [Ventolin Hfa 2 puff INHALATION RT-Q6H PRN 07/24/17 10/01/17 History Inhaler] Furosemide [Lasix] 40 mg PO DAILY 07/24/17 10/01/17 History HYDROcodone/APAP 10-325MG [[place] 1 tab PO QID PRN 07/24/17 10/01/17 History 10-325] Ipratropium [place] [Atrovent Hfa] 2 puff INHALATION RT-QID 07/24/17 10/01/17 History Mometasone/Formoterol [Dulera 200 2 puff INHALATION RT-BID 07/24/17 10/01/17 History Mcg/5 Mcg Inhaler] Tiotropium [place] [Spiriva] 1 cap INHALATION RT-DAILY 07/24/17 10/01/17 History Valsartan [Diovan] 160 mg PO DAILY 07/24/17 10/01/17 History traMADol HCL [Ultram] 50 mg PO BID PRN 07/24/17 10/01/17 History Potassium Chloride [K-Tab ER] 10 meq PO DAILY 10/01/17 10/01/17 History Warfarin [Coumadin] 5 mg PO DAILY 10/01/17 10/01/17 History Allergies Allergy/AdvReac Type Severity Reaction Status Date / Time fluticasone Allergy Anaphylaxis Verified 10/01/17 14:54 [From Advair Diskus] salmeterol Allergy Anaphylaxis Verified 10/01/17 14:54 [From Advair Diskus] Physical Exam Vitals: Vital Signs Temp Pulse Resp BP Pulse Ox 10/01/17 15:17 93 26 H 111/56 95 10/01/17 14:44 26 H 10/01/17 14:41 97.3 F L 96 26 H 103/57 96 Intake and Output 10/01/17 10/01/17 10/01/17 06:59 14:59 22:59 Other: Weight 81.647 kg Patient Weight 10/02/17 06:59 Weight 81.647 kg PHYSICAL EXAMINATION: GENERAL: The patient is alert and oriented x3, not in any acute distress. Well developed, well nourished. HEENT: Pupils are round and equally reacting to light. EOMI. No scleral icterus. No conjunctival pallor. Normocephalic, atraumatic. No pharyngeal erythema. No thyromegaly. CARDIOVASCULAR: S1 and S2 present. No murmurs, rubs, or gallops. PULMONARY: Expiratory wheezing and crackles in the right upper lung [place] possible bronchophony and egophony ABDOMEN: Soft, nontender, nondistended, normoactive bowel sounds. No palpable organomegaly. MUSCULOSKELETAL: No joint swelling or deformity. EXTREMITIES: No cyanosis, clubbing, or pedal edema. NEUROLOGICAL: Gross neurological examination did not reveal any focal deficits. SKIN: No rashes. Assessment and Plan Plan: #1 sepsis: Secondary to right middle lobe pneumonia patient is also on COPD exacerbation patient will be started on Rocephin and azithromycin for come in today quite pneumonia. Patient's lactic acid was 1.2, patient will be started on IV fluids as well. #2 acute hypoxic respiratory failure and hypercapnic respiratory failure secondary to pneumonia and COPD exacerbation. #3 COPD exacerbation patient was started on systemic steroids inhalational treatments. #4 chest pain floor: Pleuritic in nature secondary to pneumonia. #5 elevated troponin: Secondary to sepsis patient appears to have noncardiac chest pain we will repeat 2 more sets of troponins of that elevated cardiology will be consulted. #6 hypertension #7 history of PE for which patient is on Coumadin therapy and Coumadin patient was started back on Coumadin and repeat INR tomorrow. #8 continued tobacco use: Counseling was provided Sepsis - Sepsis Sepsis Focused Exam #1 Capillary Refill: < 2 Seconds: Fingers, Toes Respiratory Exam: respiratory distress, wheezes Cardiovascular Exam: regular rate
[2017-10-01] MEDS: AZITHROMYCIN 500 MG TAB PO SCH (16:23)
[2017-10-01] MEDS: methylPREDNISolone SOD SUCCI 40 MG/ML 1 ML VIAL IV SCH ×2 (16:23→23:30)
[2017-10-01 17:39] LABS: Prothrombin Time 19.5 sec (9.0-12.0)
[2017-10-01] MEDS: SODIUM CHLORIDE 0.9% 1,000 ML IV SCH (18:13)
[2017-10-01] MEDS: WARFARIN 5 MG TAB PO SCH (20:25)
[2017-10-01] MEDS: HYDROcodone/APAP 10-325MG 1 EACH TAB PO PRN (20:25)
[2017-10-01] MEDS: SYMBICORT 160-4.5 MCG INHALER INHALATION SCH (21:32)
[2017-10-01] MEDS: IPRATROPIUM-ALBUTEROL 3 ML NEB INHALATION PRN (23:50)
[2017-10-02] MEDS: HYDROcodone/APAP 10-325MG 1 EACH TAB PO PRN ×4 (01:41→21:57)
[2017-10-02] MEDS: SODIUM CHLORIDE 0.9% 1,000 ML IV SCH ×2 (04:42→09:13)
[2017-10-02 06:29] LABS: CHCM 31.2; HCT 35.5 % (34.0-46.0); HDW 2.61; HGB 11.1 gm/dL (11.4-16.0); Hypochromasia Slight; MCH 29.2 pg (25.0-35.0); MCHC 31.3 g/dL (31.0-37.0); MCV 93.4 fL (80.0-100.0); Mean Platelet Volume 7.4; RDW 14.2 % (11.5-15.5); WBC 23.4 k/uL (3.8-10.6)
[2017-10-02 06:35] LABS: INR 2.1 (<1.2); Prothrombin Time 19.9 sec (9.0-12.0)
[2017-10-02 06:50] LABS: Glucose,Whole Blood 171 mg/dL (75-99)
[2017-10-02 06:51] LABS: Anion Gap 8 mmol/L; Blood Urea Nitrogen 27 mg/dL (7-17); Carbon Dioxide 25 mmol/L (22-30); Chloride 106 mmol/L (98-107); Glucose 196 mg/dL (74-99); Non-African American GFR(MDRD) >60 (>60 ml/min/1.73 sqM); Potassium 4.5 mmol/L (3.5-5.1); Sodium 139 mmol/L (137-145)
[2017-10-02] MEDS: INSULIN LISPRO (humaLOG) 300 UNIT/3 ML VIAL SQ SCH ×4 (06:58→21:13)
[2017-10-02] MEDS: IPRATROPIUM-ALBUTEROL 3 ML NEB INHALATION SCH ×4 (07:29→20:27)
[2017-10-02] MEDS: SYMBICORT 160-4.5 MCG INHALER INHALATION SCH ×3 (07:29→20:28)
[2017-10-02] MEDS: methylPREDNISolone SOD SUCCI 40 MG/ML 1 ML VIAL IV SCH ×3 (07:56→23:00)
[2017-10-02] MEDS: AZITHROMYCIN 500 MG TAB PO SCH (07:57)
[2017-10-02] MEDS: VALSARTAN 160 MG TAB PO SCH (07:57)
[2017-10-02] MEDS: FUROSEMIDE 40 MG TAB PO SCH (07:57)
--- NOTE | 2017-10-02 08:10 | P.CRDCN ---
History of Present Illness Consult date: 10/02/17 Chief complaint: chest pain History of present illness: This is a pleasant 62-year-old female patient with a past medical history significant for advanced COPD/chronic respiratory failure and the patient is on 24 hours 2 L of oxygen at home as well as history of PE where the patient is on chronic anticoagulation presented to the hospital complaining of worsening shortness of breath as well as chest discomfort. The patient has baseline shortness of breath but over the last few days she has been experiencing fever associated with worsening in the shortness of breath as well as chest discomfort mainly over the right side of the chest and as sharp kind of discomfort worse with deep breath. No dizziness or lightheadedness and no syncope. We get involved in the care of the patient because her cardiac enzymes were checked and came in to be slightly abnormal. But please note that the patient was tachycardic and continues to be tachycardic during her hospitalization. The EKG showed sinus tachycardia with nonspecific ST changes only. The patient was admitted to the hospital and started on IV fluid as well as she is on antibiotic. Past Medical History Past Medical History: COPD, Deep Vein Thrombosis (DVT), Musculoskeletal Disorder , Pneumonia, Pulmonary Embolus (PE) Additional Past Medical History / Comment(s): CELLULITIS/GENETIC BLOOD CLOTTING DISORDER PT NOT SURE WHAT IT WAS CALLED/DEGENERATIVE DISC DISEASE/DISC DETERIORATION. HOME 02 [place] History of Any Multi-Drug Resistant Organisms: MRSA Date of last positivie culture/infection: 2014 MDRO Source:: WOUND ON ARM Past Surgical History: Adenoidectomy, Appendectomy, Bladder Surgery, Cholecystectomy, Tonsillectomy Past Anesthesia/Blood Transfusion Reactions: No Reported Reaction Smoking Status: Former smoker - Past Family History Mother Family Medical History: COPD, Deep Vein Thrombosis (DVT) Additional Family Medical History / Comment(s): HEAVY SMOKER AND DRINKER Father Family Medical History: Renal Disease Medications and Allergies Home Medications Medication Instructions Recorded Confirmed Type Albuterol Inhaler [Ventolin Hfa 2 puff INHALATION RT-Q6H PRN 07/24/17 10/01/17 History Inhaler] Furosemide [Lasix] 40 mg PO DAILY 07/24/17 10/01/17 History HYDROcodone/APAP 10-325MG [Louise 1 tab PO QID PRN 07/24/17 10/01/17 History 10-325] Ipratropium [place] [Atrovent Hfa] 2 puff INHALATION RT-QID 07/24/17 10/01/17 History Mometasone/Formoterol [Dulera 200 2 puff INHALATION RT-BID 07/24/17 10/01/17 History Mcg/5 Mcg Inhaler] Tiotropium [place] [Spiriva] 1 cap INHALATION RT-DAILY 07/24/17 10/01/17 History Valsartan [Diovan] 160 mg PO DAILY 07/24/17 10/01/17 History traMADol HCL [Ultram] 50 mg PO BID PRN 07/24/17 10/01/17 History Potassium Chloride [K-Tab ER] 10 meq PO DAILY 10/01/17 10/01/17 History Warfarin [Coumadin] 5 mg PO DAILY 10/01/17 10/01/17 History Allergies Allergy/AdvReac Type Severity Reaction Status Date / Time fluticasone Allergy Anaphylaxis Verified 10/01/17 14:54 [From Advair Diskus] salmeterol Allergy Anaphylaxis Verified 10/01/17 14:54 [From Advair Diskus] Physical Exam Vitals: Vital Signs Temp Pulse Pulse Resp BP BP Pulse Ox 10/02/17 08:00 98.3 F 109 H 24 127/59 94 L 10/02/17 07:45 92 10/02/17 07:29 88 10/02/17 04:00 97.9 F 98 20 118/59 96 10/02/17 00:00 97.9 F 93 89 22 114/55 92 L 10/01/17 23:50 99 10/01/17 21:56 96 10/01/17 21:33 96 10/01/17 20:00 97.8 F 102 H 16 131/63 94 L 10/01/17 17:30 93 18 10/01/17 17:00 97.0 F L 93 18 107/63 93 L 10/01/17 16:32 98.6 F 10/01/17 16:23 94 10/01/17 16:11 92 10/01/17 15:17 93 26 H 111/56 95 10/01/17 14:44 26 H 10/01/17 14:41 97.3 F L 96 26 H 103/57 96 Intake and Output 10/01/17 10/02/17 10/02/17 22:59 06:59 14:59 Intake Total 0 300 Output Total 200 300 Balance -200 0 Intake: Oral 0 300 Output: Urine 200 300 Other: Voiding Method Toilet Bedside Commode # Voids 1 1 # Bowel Movements 1 Weight 85.4 kg - Constitutional General appearance: no acute distress - Respiratory Respiratory: bilateral: rales - Cardiovascular Rhythm: regular Heart sounds: normal: S1, S2 Results 10/02/17 05:43 10/02/17 05:43 Cardiac Enzymes 10/01/17 10/01/17 Range/Units 17:13 23:08 Troponin I 0.560 H* 0.376 H* (0.000-0.034) ng/mL Coagulation 10/01/17 10/02/17 Range/Units 17:13 05:43 PT 19.5 H 19.9 H (9.0-12.0) sec CBC 10/02/17 Range/Units 05:43 WBC 23.4 H (3.8-10.6) k/uL RBC 3.80 (3.80-5.40) m/uL Hgb 11.1 L (11.4-16.0) gm/dL Hct 35.5 (34.0-46.0) % Plt Count 150 (150-450) k/uL Comprehensive Metabolic Panel 10/02/17 Range/Units 05:43 Sodium 139 (137-145) mmol/L Potassium 4.5 (3.5-5.1) mmol/L Chloride 106 (98-107) mmol/L Carbon Dioxide 25 (22-30) mmol/L BUN 27 H (7-17) mg/dL Creatinine 0.65 (0.52-1.04) mg/dL Glucose 196 H (74-99) mg/dL Calcium 9.0 (8.4-10.2) mg/dL Current Medications Generic Name Dose Route Start Last Admin Trade Name Freq PRN Reason Stop Dose Admin Hydrocodone Bitart/Acetaminophen 1 each 10/01/17 16:04 10/02/17 01:41 [place] 10 PO 1 each QID PRN Administration Pain Albuterol/Ipratropium 3 ml 10/01/17 16:00 10/02/17 07:29 Duoneb 0.5 Mg-3 Mg/3 Ml Soln INHALATION 3 ml RT-QID HERMES Administration Albuterol/Ipratropium 3 ml 10/01/17 16:00 10/01/17 23:50 Duoneb 0.5 Mg-3 Mg/3 Ml Soln INHALATION 3 ml RT-Q2H PRN Administration Shortness Of Breath Or Wheezing Azithromycin 500 mg 10/01/17 16:00 10/02/17 07:57 Zithromax PO 500 mg DAILY HERMES Administration Budesonide/Formoterol Fumarate 2 puff 10/01/17 20:00 10/02/17 07:35 Symbicort 160-4.5 Mcg Inhaler INHALATION Not Given RT-BID HERMES Furosemide 40 mg 10/02/17 09:00 10/02/17 07:57 Lasix PO 40 mg DAILY HERMES Administration Ceftriaxone Sodium 1,000 mg/ 50 mls @ 100 mls/hr 10/01/17 16:00 10/02/17 07: 56 Sodium Chloride IVPB 10/05/17 16:01 100 mls/hr Q24HR HERMES Administration Sodium Chloride 1,000 mls @ 100 mls/hr 10/01/17 16:15 10/02/17 04:42 Saline 0.9% IV Not Given .Q10H HERMES Insulin Human Lispro 0 unit 10/02/17 07:30 10/02/17 06:58 Humalog SQ 4 unit ACHS HERMES Administration Protocol Methylprednisolone Sodium Succinate 40 mg 10/01/17 16:15 10/02/17 07:56 Solu-Medrol IV 40 mg Q8HR HERMES Administration Miscellaneous Information 1 each 10/01/17 16:00 Pneumonia Protocol Utilized PO ONCE PRN Per Protocol Tramadol HCl 50 mg 10/01/17 16:04 Ultram PO BID PRN Pain Valsartan 160 mg 10/02/17 09:00 10/02/17 07:57 Diovan PO 160 mg DAILY HERMES Administration Warfarin Sodium 5 mg 10/01/17 18:00 10/01/17 20:25 Coumadin PO 5 mg DAILY@1800 HERMES Administration Intake and Output 10/01/17 10/02/17 10/02/17 22:59 06:59 14:59 Intake Total 0 300 Output Total 200 300 Balance -200 0 Intake: Oral 0 300 Output: Urine 200 300 Other: Voiding Method Toilet Bedside Commode # Voids 1 1 # Bowel Movements 1 Weight 85.4 kg 10/02/17 05:43 10/02/17 05:43 Assessment and Plan Assessment: This is a pleasant 62-year-old female patient with a chronic respiratory failure and history of PE presented to the hospital with progressive dyspnea associated with fever. The patient was diagnosed with pneumonia/sepsis and she is currently on antibiotic. The cardiac enzymes were checked and came in to be slightly abnormal. The EKG showed only nonspecific changes. The patient currently pain-free. At this point I will continue treating the patient for pneumonia/sepsis/COPD exacerbation. Once his the patient is feeling better she might benefit from a stress test either as inpatient or as an outpatient.she is on Coumadin which we will continue. We will follow-up on the echocardiogram as well to assess for wall motion abnormalities. We will continue following up with the patient.
--- NOTE | 2017-10-02 08:45 | XR ---
EXAMINATION TYPE: XR chest 1V DATE OF EXAM: 10/02/2017 COMPARISON: 10/01/2017 HISTORY: Pneumonia TECHNIQUE: Single frontal view of the chest is obtained. FINDINGS: Stable nodule right upper lobe with large area of consolidation involving the right upper lobe. Right hilar adenopathy suspected. Underlying COPD noted. No pleural effusion or pneumothorax. H eart size stable. Arthropathy of the shoulders. Atherosclerotic change aorta. IMPRESSION: 1. Right upper lobe pneumonia with suspected hilar adenopathy and right upper lobe pulmonary nodule. Findings are suggestive of pneumonia. Follow to resolution to exclude underlying neoplasm.
--- NOTE | 2017-10-02 11:29 | ECHOF ---
Referral Reason:POSITIVE TROP MEASUREMENTS -------- HEIGHT: 165.1 cm WEIGHT: 85.3 kg BP: 118/59 RVIDd: 2.7 cm (< 3.3) IVSd: 1.2 cm (0.6 - 1.1) LVIDd: 3.9 cm (3.9 - 5.3) LVPWd: 1.3 cm (0.6 - 1.1) IVSs: 1.7 cm LVIDs: 3.2 cm LVPWs: 1.6 cm LA Diam: 3.1 cm (2.7 - 3.8) LAESV Index (A-L): 27.02 ml/m Ao Diam: 2.8 cm (2.0 - 3.7) AV Cusp: 2.0 cm (1.5 - 2.6) MV EXCURSION: 15.618 mm (> 18.000) MV EF SLOPE: 92 mm/s (70 - 150) EPSS: 0.7 cm MV E Master: 1.19 m/s MV DecT: 186 ms MV A Master: 1.27 m/s MV E/A Ratio: 0.94 RAP: 5.00 mmHg RVSP: 75.40 mmHg FINDINGS -------- Sinus rhythm. Resting tachycardia (HR>100bpm). This was a technically adequate study. The left ventricular size is normal. There is mild concentric left ventricular hypertrophy. Overa ll left ventricular systolic function is normal with, an EF between 60 - 65 %. RV Promident Normal LA size by volume 22+/-6 ml/m2. The right atrium is normal in size. The aortic valve is trileaflet, and appears structurally normal. No aortic stenosis or regurgitation. The mitral valve is normal. [id number] mitral regurgitation is present. Mqws-[id number] tricuspid regurgitation present. There is severe pulmonary hypertension. The rig ht ventricular systolic pressure, as measured by Doppler, is 75.40mmHg. Trace/mild (physiologic) pulmonic regurgitation. The aortic root size is normal. The inferior vena cava is mildly dilated. There is no pericardial effusion. CONCLUSIONS -------- 1. Sinus rhythm. 2. Resting tachycardia (HR>100bpm). 3. This was a technically adequate study. 4. There is mild concentric left ventricular hypertrophy. 5. Overall left ventricular systolic function is normal with, an EF between 60 - 65 %. 6. RV Promident 7. Normal LA size by volume 22+/-6 ml/m2. 8. The aortic valve is trileaflet, and appears structurally normal. No aortic stenosis or regurgitati on. 9. [id number] mitral regurgitation is present. 10. Opax-pn-[id number] tricuspid regurgitation present. 11. There is severe pulmonary hypertension. 12. Trace/mild (physiologic) pulmonic regurgitation. 13. The aortic root size is normal. 14. The inferior vena cava is mildly dilated. 15. There is no pericardial effusion. EXEC. CREATIVE DIRECTOR: Hannah Guevara RDCS
[2017-10-02 11:49] LABS: Glucose,Whole Blood 141 mg/dL (75-99)
--- NOTE | 2017-10-02 13:33 | P.CNPUL ---
History of Present Illness Consult date: 10/02/17 Reason for consult: COPD, pneumonia History of present illness: This is a pleasant 62-year-old female patient known history of advanced oxygen- dependent COPD was admitted on a combination of Dulera and Spiriva on an outpatient basis. The patient was in the hospital back in July where she was diagnosed having pulmonary embolism and she was discharged home on Coumadin. Around 2 days ago the patient started having increased cough and congestion and she subsequently started having chills and fever with a temperature of 102. She presented to [facility] where she was found to have large consolidation of the right lung and subsequent CAT scan of the chest showed consolidation of the right upper lobe and the right middle lobe. The patient also has calcified granuloma and mediastinal lymph node calcification. No evidence of any pleural effusion. The patient was therapeutic on Coumadin with an INR of 2.1. No travel history. No sick contacts. No previous history of MRSA exposure. Currently she is on a combination of Rocephin and Zithromax. Sputum Gram stain and cultures still pending for now. Blood cultures of been sent and the results are still pending. Meanwhile the patient is on oxygen at 3 L/m nasal cannula and his saturations around 96%. She is slightly tachycardic with a heart rate between 100-120 and she is slightly tachypneic. No nausea. No vomiting. No change in mental status and this point. One is minimally elevated at 0.3. ProBNP level is at 7550. Influenza screen was negative. White cell count was 23.4. Review of Systems Constitutional: Reports fatigue, Reports fever, Reports poor appetite, Reports weakness Eyes: denies blurred vision, denies bulging eye, denies decreased vision Ears: deny: decreased hearing, ear discharge, earache Ears, nose, mouth and throat: Denies headache, Denies sore throat Cardiovascular: Reports dyspnea on exertion, Reports shortness of breath Respiratory: Reports cough, Reports dyspnea, Reports wheezing Gastrointestinal: Denies abdominal pain, Denies diarrhea, Denies nausea, Denies vomiting Genitourinary: Denies dysuria, Denies hematuria Musculoskeletal: Denies myalgias Musculoskeletal: absent: ankle stiffness, ankle swelling, as per HPI Integumentary: Denies pruritus, Denies rash Neurological: Denies numbness, Denies weakness Psychiatric: Denies anxiety, Denies depression Endocrine: Denies fatigue, Denies weight change Hematologic/Lymphatic: Reports as per HPI Past Medical History Past Medical History: COPD, Deep Vein Thrombosis (DVT), Musculoskeletal Disorder , Pneumonia, Pulmonary Embolus (PE) Additional Past Medical History / Comment(s): Advanced oxygen-dependent COPD, previous history of DVT, previous history of pulmonary embolism and the patient has been maintained on Coumadin, degenerative arthritis, chronic hypoxic respiratory failure on oxygen 3 L/m nasal cannula History of Any Multi-Drug Resistant Organisms: MRSA Date of last positivie culture/infection: 2014 MDRO Source:: WOUND ON ARM Past Surgical History: Adenoidectomy, Appendectomy, Bladder Surgery, Cholecystectomy, Tonsillectomy Past Anesthesia/Blood Transfusion Reactions: No Reported Reaction Smoking Status: Former smoker - Past Family History Mother Family Medical History: COPD, Deep Vein Thrombosis (DVT) Additional Family Medical History / Comment(s): HEAVY SMOKER AND DRINKER Father Family Medical History: Renal Disease Medications and Allergies Home Medications Medication Instructions Recorded Confirmed Type Albuterol Inhaler [Ventolin Hfa 2 puff INHALATION RT-Q6H PRN 07/24/17 10/01/17 History Inhaler] Furosemide [Lasix] 40 mg PO DAILY 07/24/17 10/01/17 History HYDROcodone/APAP 10-325MG [Norris 1 tab PO QID PRN 07/24/17 10/01/17 History 10-325] Ipratropium Orwell [Atrovent Hfa] 2 puff INHALATION RT-QID 07/24/17 10/01/17 History Mometasone/Formoterol [Dulera 200 2 puff INHALATION RT-BID 07/24/17 10/01/17 History Mcg/5 Mcg Inhaler] Tiotropium Orwell [Spiriva] 1 cap INHALATION RT-DAILY 07/24/17 10/01/17 History Valsartan [Diovan] 160 mg PO DAILY 07/24/17 10/01/17 History traMADol HCL [Ultram] 50 mg PO BID PRN 07/24/17 10/01/17 History Potassium Chloride [K-Tab ER] 10 meq PO DAILY 10/01/17 10/01/17 History Warfarin [Coumadin] 5 mg PO DAILY 10/01/17 10/01/17 History Allergies Allergy/AdvReac Type Severity Reaction Status Date / Time fluticasone Allergy Anaphylaxis Verified 10/01/17 14:54 [From Advair Diskus] salmeterol Allergy Anaphylaxis Verified 10/01/17 14:54 [From Advair Diskus] Physical Exam Vitals: Vital Signs Temp Pulse Pulse Resp BP BP Pulse Ox 10/02/17 12:00 118 H 20 10/02/17 11:59 97.0 F L 118 H 20 116/56 96 10/02/17 11:32 108 H 10/02/17 11:17 108 H 10/02/17 08:00 98.3 F 109 H 24 127/59 94 L 10/02/17 07:45 92 10/02/17 07:29 88 10/02/17 04:00 97.9 F 98 20 118/59 96 10/02/17 00:00 97.9 F 93 89 22 114/55 92 L 10/01/17 23:50 99 10/01/17 21:56 96 10/01/17 21:33 96 10/01/17 20:00 97.8 F 102 H 16 131/63 94 L 10/01/17 17:30 93 18 10/01/17 17:00 97.0 F L 93 18 107/63 93 L 10/01/17 16:32 98.6 F 10/01/17 16:23 94 10/01/17 16:11 92 10/01/17 15:17 93 26 H 111/56 95 10/01/17 14:44 26 H 10/01/17 14:41 97.3 F L 96 26 H 103/57 96 Intake and Output 10/01/17 10/02/17 10/02/17 22:59 06:59 14:59 Intake Total 0 300 480 Output Total 200 300 900 Balance -200 0 -420 Intake: Oral 0 300 480 Output: Urine 200 300 900 Other: Voiding Method Toilet Bedside Commode Bedside Commode # Voids 1 1 2 # Bowel Movements 1 1 Weight 85.4 kg Gen. appearance the patient is calm, not in acute respiratory distress. Slightly tachycardic no significant tachypnea this point. She is not using excessive muscle breathing.Head exam was generally normal. There was no scleral icterus or corneal arcus. Mucous membranes were moist. Neck is supple and the patient is no JVDs no goiter or neck masses. She has or mental conditions. Lung sounds are diminished and the patient is having some limited crackles over the right lateral and anterior chest area. Scattered expiratory wheezes. Otherwise no other abnormalities are noted.Cardiac exam revealed the PMI to be normally situated and sized. The rhythm was regular and no extrasystoles were noted during several minutes of auscultation. The first and second heart sounds were normal and physiologic splitting of the second heart sound was noted. There were no murmurs, rubs, clicks, or gallops.Abdominal exam revealed normal bowel sounds. The abdomen was soft, non-tender, and without masses, organomegaly , or appreciable enlargement of the abdominal aorta.Examination of the extremities revealed easily palpable radial, femoral and pedal pulses. There was no cyanosis, clubbing or edema.Examination of the skin revealed no evidence of significant rashes, suspicious appearing nevi or other concerning lesions. Neurologically the patient is awake and alert and there is no focal neurological deficit at this point Results - Laboratory Findings CBC and BMP: 10/02/17 05:43 10/02/17 05:43 PT/INR, D-dimer PT 19.9 sec (9.0-12.0) H 10/02/17 05:43 INR 2.1 (<1.2) H 10/02/17 05:43 Abnormal lab findings: Abnormal Labs 10/01/17 10/01/17 10/01/17 17:13 17:13 23:08 WBC Hgb PT 19.5 H INR 2.0 H BUN Glucose POC Glucose (mg/dL) Troponin I 0.560 H* 0.376 H* 10/02/17 10/02/17 10/02/17 05:43 05:43 05:43 WBC 23.4 H Hgb 11.1 L PT 19.9 H INR 2.1 H BUN 27 H Glucose 196 H POC Glucose (mg/dL) Troponin I 10/02/17 10/02/17 06:48 11:26 WBC Hgb PT INR BUN Glucose POC Glucose (mg/dL) 171 H 141 H Troponin I - Diagnostic Findings Chest x-ray: image reviewed CT scan - chest: image reviewed Assessment and Plan Plan: Assessment 1 acute bilateral lobar pneumonia involving the right lung, right middle lobe/ right upper lobe. The patient has dense consolidation typical of an acute pneumonic process. 2 acute febrile illness secondary to pneumonia 3 acute leukocytosis secondary to above 4 recent hospitalization for pulmonary embolism and the patient has a therapeutic PT/INR while being on Coumadin 5 advanced COPD, oxygen dependent, maintained on a combination of Spiriva and alert on outpatient basis 6 chronic hypoxic respiratory failure 7 history of DVT 8 degenerative arthritis Plan Obtain sputum Gram stain and culture. Obtain blood culture. Proceed with Rocephin and Zithromax. Daily chest x-rays. We will broaden antibiotic coverage if there is absence of clinical response and/or interval progression. Continue articulation with warfarin maintaining an INR between 2 and 3. Cardiology consultation regarding the troponin leak. May need a baseline echocardiogram. We'll continue to follow make further recommendations based on her progress. We will add also systemic steroids. We'll check a Legionella urine antigen.
--- NOTE | 2017-10-02 15:31 | P.PN ---
Subjective Patient was admitted for COPD exacerbation and the right upper lobe pneumonia, looks better compared to yesterday but not feeling better is still coughing shot of breath. Constitutional: Denied any fatigue denied any fever. Cardio vascular: denied any chest pain, palpitations Gastrointestinal denied any nausea vomiting Pulmonary: As mentioned in HPI Neurologic denied any new focal deficits Objective - Vital Signs Vital signs: Vital Signs Temp 98.0 F 10/02/17 15:11 Pulse 120 H 10/02/17 15:13 Resp 24 10/02/17 15:13 BP 140/63 10/02/17 15:11 Pulse Ox 95 10/02/17 15:11 Intake & Output 10/01/17 10/02/17 10/02/17 18:59 06:59 18:59 Intake Total 0 300 480 Output Total 0 500 900 Balance 0 -200 -420 Weight 81.647 kg 85.4 kg Intake: Oral 0 300 480 Output: Urine 0 500 900 Other: Voiding Method Bedside Commode Bedside Commode # Voids 1 2 # Bowel Movements 1 1 - Exam GENERAL: The patient is alert and oriented x3, not in any acute distress. Well developed, well nourished. HEENT: Pupils are round and equally reacting to light. EOMI. No scleral icterus. No conjunctival pallor. Normocephalic, atraumatic. No pharyngeal erythema. No thyromegaly. CARDIOVASCULAR: S1 and S2 present. No murmurs, rubs, or gallops. PULMONARY: Expiratory wheezing and crackles in the right upper lung goodwin possible bronchophony and egophony ABDOMEN: Soft, nontender, nondistended, normoactive bowel sounds. No palpable organomegaly. MUSCULOSKELETAL: No joint swelling or deformity. EXTREMITIES: No cyanosis, clubbing, or pedal edema. NEUROLOGICAL: Gross neurological examination did not reveal any focal deficits. SKIN: No rashes. - Labs CBC & Chem 7: 10/02/17 05:43 10/02/17 05:43 Labs: Abnormal Lab Results - Last 24 Hours (Table) 10/01/17 10/01/17 10/01/17 Range/Units 17:13 17:13 23:08 WBC (3.8-10.6) k/uL Hgb (11.4-16.0) gm/dL PT 19.5 H (9.0-12.0) sec INR 2.0 H (<1.2) BUN (7-17) mg/dL Glucose (74-99) mg/dL POC Glucose (mg/dL) (75-99) mg/dL Troponin I 0.560 H* 0.376 H* (0.000-0.034) ng/mL 10/02/17 10/02/17 10/02/17 Range/Units 05:43 05:43 05:43 WBC 23.4 H (3.8-10.6) k/uL Hgb 11.1 L (11.4-16.0) gm/dL PT 19.9 H (9.0-12.0) sec INR 2.1 H (<1.2) BUN 27 H (7-17) mg/dL Glucose 196 H (74-99) mg/dL POC Glucose (mg/dL) (75-99) mg/dL Troponin I (0.000-0.034) ng/mL 10/02/17 10/02/17 Range/Units 06:48 11:26 WBC (3.8-10.6) k/uL Hgb (11.4-16.0) gm/dL PT (9.0-12.0) sec INR (<1.2) BUN (7-17) mg/dL Glucose (74-99) mg/dL POC Glucose (mg/dL) 171 H 141 H (75-99) mg/dL Troponin I (0.000-0.034) ng/mL Assessment and Plan Plan: #1 sepsis: Secondary to right middle lobe pneumonia patient is also on COPD exacerbation patient will be started on Rocephin and azithromycin for come in today quite pneumonia. Patient's lactic acid was 1.2, patient will be started on IV fluids as well. #2 acute hypoxic respiratory failure and hypercapnic respiratory failure secondary to pneumonia and COPD exacerbation. #3 COPD exacerbation patient was started on systemic steroids inhalational treatments. #4 chest pain floor: Pleuritic in nature secondary to pneumonia. #5 elevated troponin: Secondary to sepsis patient appears to have noncardiac chest pain we will repeat 2 more sets of troponins of that elevated cardiology will be consulted. #6 hypertension #7 history of PE for which patient is on Coumadin therapy and Coumadin patient was started back on Coumadin and repeat INR tomorrow. #8 continued tobacco use: Counseling was provided
[2017-10-02 16:53] LABS: Glucose,Whole Blood 205 mg/dL (75-99)
[2017-10-02] MEDS: WARFARIN 5 MG TAB PO SCH (17:30)
[2017-10-02 21:07] LABS: Glucose,Whole Blood 206 mg/dL (75-99)
[2017-10-02] MEDS: IPRATROPIUM-ALBUTEROL 3 ML NEB INHALATION PRN (23:44)
[2017-10-03] MEDS: IPRATROPIUM-ALBUTEROL 3 ML NEB INHALATION PRN (03:25)
[2017-10-03 06:10] LABS: Glucose,Whole Blood 202 mg/dL (75-99)
[2017-10-03] MEDS: INSULIN LISPRO (humaLOG) 300 UNIT/3 ML VIAL SQ SCH ×4 (06:27→21:01)
[2017-10-03] MEDS: SODIUM CHLORIDE 0.9% 1,000 ML IV SCH (06:27)
[2017-10-03 07:02] LABS: CH 28.8; CHCM 30.9; HCT 34.5 % (34.0-46.0); HDW 2.63; HGB 10.9 gm/dL (11.4-16.0); Hypochromasia Slight; MCH 29.6 pg (25.0-35.0); MCHC 31.6 g/dL (31.0-37.0); MCV 93.6 fL (80.0-100.0); Mean Platelet Volume 7.7; RBC 3.69 m/uL (3.80-5.40); RDW 14.3 % (11.5-15.5); WBC 19.1 k/uL (3.8-10.6)
[2017-10-03 07:05] LABS: INR 2.7 (<1.2); Prothrombin Time 26.3 sec (9.0-12.0)
[2017-10-03 07:10] LABS: Anion Gap 10 mmol/L; Blood Urea Nitrogen 23 mg/dL (7-17); Calcium 9.8 mg/dL (8.4-10.2); Carbon Dioxide 23 mmol/L (22-30); Chloride 108 mmol/L (98-107); Glucose 202 mg/dL (74-99); Non-African American GFR(MDRD) >60 (>60 ml/min/1.73 sqM); Potassium 4.2 mmol/L (3.5-5.1); Sodium 141 mmol/L (137-145)
[2017-10-03] MEDS: HYDROcodone/APAP 10-325MG 1 EACH TAB PO PRN ×2 (07:49→16:15)
[2017-10-03] MEDS: AZITHROMYCIN 500 MG TAB PO SCH (07:52)
[2017-10-03] MEDS: FUROSEMIDE 40 MG TAB PO SCH (07:52)
[2017-10-03] MEDS: VALSARTAN 160 MG TAB PO SCH (07:52)
[2017-10-03] MEDS: methylPREDNISolone SOD SUCCI 40 MG/ML 1 ML VIAL IV SCH ×3 (07:52→23:03)
[2017-10-03] MEDS: IPRATROPIUM-ALBUTEROL 3 ML NEB INHALATION SCH ×4 (08:06→21:22)
[2017-10-03] MEDS: SYMBICORT 160-4.5 MCG INHALER INHALATION SCH ×2 (08:06→21:22)
--- NOTE | 2017-10-03 10:01 | XR ---
EXAMINATION TYPE: XR chest 1V DATE OF EXAM: 10/03/2017 CLINICAL HISTORY: Difficulty breathing progress study. TECHNIQUE: Single AP portable upright view of the chest is obtained. COMPARISON: Chest x-ray from one day earlier and outside chest x-ray and CTA chest 2 days earlier. FINDINGS: There is persistent cardiomegaly with atherosclerotic thoracic aorta. There is background of chronic emphysematous change with left apical scarring and calcified nodule lateral right upper lo be. There is persistent masslike consolidation right hilar region peripheral atelectasis and/or infil trate. There is no new focal airspace opacity, pleural effusion, or pneumothorax identified. Osseous structures are demineralized. IMPRESSION: Overall stable findings, cardiomegaly and chronic emphysematous change with persistent right hilar masslike consolidation. No new infiltrate is seen.
[2017-10-03] MEDS: DILTIAZEM ORAL 60 MG TAB PO SCH ×3 (10:14→21:01)
[2017-10-03 11:35] LABS: Glucose,Whole Blood 173 mg/dL (75-99)
--- NOTE | 2017-10-03 13:46 | P.PN ---
Subjective Progress Note Date: 10/03/17 This is a 62-year-old female with past medical history significant for advanced COPD, chronic respiratory failure, on home O2 at home, history of pulmonary embolism on chronic anticoagulation, she presented to the hospital with symptoms of progressively worsening shortness of breath. She is currently receiving treatment for pneumonia. Cardiology was consulted initially because patient's cardiac enzymes came back to be slightly abnormal. It is not felt that the patient had a myocardial infarction, abnormal troponins were likely secondary to oxygen supply and demand mismatch. Patient was also noted to be tachycardic. Echocardiogram with Doppler study was performed which revealed an ejection fraction of 60-65%, mild to moderate mitral regurg with mild to moderate tricuspid regurg and severe pulmonary hypertension noted. At the time of my examination this morning, heart rate was up in the 1 teens, seems to go up with activity, when the patient is at rest staying in the 90s. We will start the patient on some oral Cardizem today. Objective - Vital Signs Vital signs: Vital Signs Temp 97.0 F L 10/03/17 11:51 Pulse 112 H 10/03/17 11:54 Resp 24 10/03/17 11:51 BP 131/68 10/03/17 11:51 Pulse Ox 95 10/03/17 11:51 Intake & Output 10/02/17 10/03/17 10/03/17 18:59 06:59 18:59 Intake Total 720 800 240 Output Total 1201 300 0 Balance -481 500 240 Weight 86 kg Intake: IV 800 Sodium Chloride 0.9% 1, 800 000 ml @ 50 mls/hr IV . Q20H [facility] Rx#:[id number] Oral 720 240 Output: Urine 1200 300 0 Stool 1 Other: Voiding Method Bedside Commode Bedside Commode # Voids 0 1 2 # Bowel Movements 1 1 - Exam PHYSICAL EXAMINATION: HEENT: Head is atraumatic, normocephalic. Pupils equal, round. Neck is supple. There is no elevated jugular venous pressure. HEART EXAMINATION: Heart S1, S2 normal. No murmur or gallop heard. CHEST EXAMINATION: Lungs reveal decreased air exchange with scattered coarse wheezing throughout. ABDOMEN: Soft, nontender. Bowel sounds are heard. No organomegaly noted. EXTREMITIES: 2+ peripheral pulses with evidence of peripheral edema and no calf tenderness noted. NEUROLOGIC patient is awake, alert and oriented -3. . - Labs CBC & Chem 7: 10/03/17 06:24 10/03/17 06:24 Labs: Abnormal Lab Results - Last 24 Hours (Table) 10/02/17 10/02/17 10/03/17 Range/Units 16:40 21:04 06:08 WBC (3.8-10.6) k/uL RBC (3.80-5.40) m/uL Hgb (11.4-16.0) gm/dL PT (9.0-12.0) sec INR (<1.2) Chloride (98-107) mmol/L BUN (7-17) mg/dL Creatinine (0.52-1.04) mg/dL Glucose (74-99) mg/dL POC Glucose (mg/dL) 205 H 206 H 202 H (75-99) mg/dL 10/03/17 10/03/17 10/03/17 Range/Units 06:24 06:24 06:24 WBC 19.1 H (3.8-10.6) k/uL RBC 3.69 L (3.80-5.40) m/uL Hgb 10.9 L (11.4-16.0) gm/dL PT 26.3 H (9.0-12.0) sec INR 2.7 H (<1.2) Chloride 108 H (98-107) mmol/L BUN 23 H (7-17) mg/dL Creatinine 0.49 L (0.52-1.04) mg/dL Glucose 202 H (74-99) mg/dL POC Glucose (mg/dL) (75-99) mg/dL 10/03/17 Range/Units 11:32 WBC (3.8-10.6) k/uL RBC (3.80-5.40) m/uL Hgb (11.4-16.0) gm/dL PT (9.0-12.0) sec INR (<1.2) Chloride (98-107) mmol/L BUN (7-17) mg/dL Creatinine (0.52-1.04) mg/dL Glucose (74-99) mg/dL POC Glucose (mg/dL) 173 H (75-99) mg/dL Microbiology - Last 24 Hours (Table) 10/01/17 23:52 Gram Stain - Preliminary Sputum 10/01/17 18:12 Blood Culture - Preliminary Blood No Growth after 24 hours 10/01/17 17:13 Blood Culture - Preliminary Blood No Growth after 24 hours Assessment and Plan Plan: Assessment and plan #1 sepsis, secondary to right middle lobe pneumonia #2 history of pulmonary embolism and DVT on Coumadin #3 advanced COPD #4 sinus tachycardia Plan Echocardiogram with Doppler study was performed which revealed ejection fraction of 60-65% with mild to moderate mitral regurgitation, moderate tricuspid regurg and severe pulmonary hypertension. We will start the patient on a small dose of oral Cardizem for more optimal heart rate control. Continue other medications. DNP note has been reviewed, I agree with a documented findings and plan of care. Patient was seen and examined.
--- NOTE | 2017-10-03 15:06 | P.PN ---
Subjective Progress Note Date: 10/03/17 This is a pleasant 62-year-old female patient known history of advanced oxygen- dependent COPD was admitted on a combination of Dulera and Spiriva on an outpatient basis. The patient was in the hospital back in July where she was diagnosed having pulmonary embolism and she was discharged home on Coumadin. Around 2 days ago the patient started having increased cough and congestion and she subsequently started having chills and fever with a temperature of 102. She presented to [facility] where she was found to have large consolidation of the right lung and subsequent CAT scan of the chest showed consolidation of the right upper lobe and the right middle lobe. The patient also has calcified granuloma and mediastinal lymph node calcification. No evidence of any pleural effusion. The patient was therapeutic on Coumadin with an INR of 2.1. No travel history. No sick contacts. No previous history of MRSA exposure. Currently she is on a combination of Rocephin and Zithromax. Sputum Gram stain and cultures still pending for now. Blood cultures of been sent and the results are still pending. Meanwhile the patient is on oxygen at 3 L/m nasal cannula and his saturations around 96%. She is slightly tachycardic with a heart rate between 100-120 and she is slightly tachypneic. No nausea. No vomiting. No change in mental status and this point. One is minimally elevated at 0.3. ProBNP level is at 7550. Influenza screen was negative. White cell count was 23.4. On 10/03/2017 I'm seeing this patient for a follow-up. The patient is being treated for a right middle lobe pneumonia. INR is therapeutic at 2.7. White cell count is elevated at 19.1. Chest x-ray shows some slight improvement in the right middle lobe pulmonary infiltrates. Patient clinically is slightly improved compared to yesterday. She continues to have a congested cough. Unable to bring up much of sputum. More successful and collecting a sputum sample is showing gradual gram-positive cocci in pairs. No hemoptysis at this point. No pleurisy. No change in mental status. No nausea vomiting. No hemodynamic instability. Objective - Vital Signs Vital signs: Vital Signs Temp 97.0 F L 10/03/17 11:51 Pulse 112 H 10/03/17 11:54 Resp 24 10/03/17 11:51 BP 131/68 10/03/17 11:51 Pulse Ox 95 10/03/17 11:51 Intake & Output 10/02/17 10/03/17 10/03/17 18:59 06:59 18:59 Intake Total 720 800 420 Output Total 1201 300 0 Balance -481 500 420 Weight 86 kg Intake: IV 800 Sodium Chloride 0.9% 1, 800 000 ml @ 50 mls/hr IV . Q20H [facility] Rx#:[id number] Oral 720 420 Output: Urine 1200 300 0 Stool 1 Other: Voiding Method Bedside Commode Bedside Commode # Voids 0 1 2 # Bowel Movements 1 1 - Exam Gen. appearance the patient is calm, not in acute respiratory distress. Slightly tachycardic no significant tachypnea this point. She is not using excessive muscle breathing.Head exam was generally normal. There was no scleral icterus or corneal arcus. Mucous membranes were moist. Neck is supple and the patient is no JVDs no goiter or neck masses. She has or mental conditions. Lung sounds are diminished and the patient is having some limited crackles over the right lateral and anterior chest area. Scattered expiratory wheezes. Otherwise no other abnormalities are noted.Cardiac exam revealed the PMI to be normally situated and sized. The rhythm was regular and no extrasystoles were noted during several minutes of auscultation. The first and second heart sounds were normal and physiologic splitting of the second heart sound was noted. There were no murmurs, rubs, clicks, or gallops.Abdominal exam revealed normal bowel sounds. The abdomen was soft, non-tender, and without masses, organomegaly , or appreciable enlargement of the abdominal aorta.Examination of the extremities revealed easily palpable radial, femoral and pedal pulses. There was no cyanosis, clubbing or edema.Examination of the skin revealed no evidence of significant rashes, suspicious appearing nevi or other concerning lesions. Neurologically the patient is awake and alert and there is no focal neurological deficit at this point - Labs CBC & Chem 7: 10/03/17 06:24 10/03/17 06:24 Labs: Abnormal Lab Results - Last 24 Hours (Table) 10/02/17 10/02/17 10/03/17 Range/Units 16:40 21:04 06:08 WBC (3.8-10.6) k/uL RBC (3.80-5.40) m/uL Hgb (11.4-16.0) gm/dL PT (9.0-12.0) sec INR (<1.2) Chloride (98-107) mmol/L BUN (7-17) mg/dL Creatinine (0.52-1.04) mg/dL Glucose (74-99) mg/dL POC Glucose (mg/dL) 205 H 206 H 202 H (75-99) mg/dL 10/03/17 10/03/17 10/03/17 Range/Units 06:24 06:24 06:24 WBC 19.1 H (3.8-10.6) k/uL RBC 3.69 L (3.80-5.40) m/uL Hgb 10.9 L (11.4-16.0) gm/dL PT 26.3 H (9.0-12.0) sec INR 2.7 H (<1.2) Chloride 108 H (98-107) mmol/L BUN 23 H (7-17) mg/dL Creatinine 0.49 L (0.52-1.04) mg/dL Glucose 202 H (74-99) mg/dL POC Glucose (mg/dL) (75-99) mg/dL 10/03/17 Range/Units 11:32 WBC (3.8-10.6) k/uL RBC (3.80-5.40) m/uL Hgb (11.4-16.0) gm/dL PT (9.0-12.0) sec INR (<1.2) Chloride (98-107) mmol/L BUN (7-17) mg/dL Creatinine (0.52-1.04) mg/dL Glucose (74-99) mg/dL POC Glucose (mg/dL) 173 H (75-99) mg/dL Microbiology - Last 24 Hours (Table) 10/01/17 23:52 Gram Stain - Preliminary Sputum 10/01/17 18:12 Blood Culture - Preliminary Blood No Growth after 24 hours 10/01/17 17:13 Blood Culture - Preliminary Blood No Growth after 24 hours Assessment and Plan Plan: Assessment 1 acute bilateral lobar pneumonia involving the right lung, right middle lobe/ right upper lobe. The patient has dense consolidation typical of an acute pneumonic process. On 10/03/2017 the patient has gram-positive cocci in pairs in the sputum sample. Chest x-ray showed limited improvement in the right midlung consolidation. Clinically stable. 2 acute febrile illness secondary to pneumonia , currently afebrile 3 acute leukocytosis secondary to above 4 recent hospitalization for pulmonary embolism and the patient has a therapeutic PT/INR while being on Coumadin 5 advanced COPD, oxygen dependent, maintained on a combination of Spiriva and alert on outpatient basis 6 chronic hypoxic respiratory failure 7 history of DVT 8 degenerative arthritis Plan Obtain sputum Gram stain and culture. Obtain blood culture. Proceed with Rocephin and Zithromax. Daily chest x-rays. I think the results of the sputum Gram stain and culture. The patient will be kept the same antibiotic coverage. I reviewed the chest x-ray from today. There is limited improvement. Clinically still unchanged. INR is therapeutic at 2.7. We'll continue same treatment. Repeat chest x-ray in a.m.
--- NOTE | 2017-10-03 15:10 | P.PN ---
Subjective Progress Note Date: 10/03/17 Progress note being dictated for Dr. Langford Interval history:Patient was admitted for COPD exacerbation and the right upper lobe pneumonia, looks better compared to yesterday but not feeling better is still coughing shot of breath. Constitutional: Denied any fatigue denied any fever. Cardio vascular: denied any chest pain, palpitations Gastrointestinal denied any nausea vomiting Pulmonary: As mentioned in HPI Neurologic denied any new focal deficits 10/03/2017. Maintained on nebulized bronchodilators, steroids, Rocephin, Zithromax. Breathing slowly improving. Today heart rates escalating higher up into the 160s, post-steroid administration, nebulizers and after activity. At rest, in the 110s. Telemetry sinus rhythm to sinus tach. Cardizem added to med regime as per cardiology. Echo reporting normal LV function, EF 60-65%, [id number] mitral and tricuspid regurgitation, severe pulmonary hypertension. Anticoagulated on Coumadin, INR 2.7. Objective - Vital Signs Vital signs: Vital Signs Temp 97.0 F L 10/03/17 11:51 Pulse 112 H 10/03/17 11:54 Resp 24 10/03/17 11:51 BP 131/68 10/03/17 11:51 Pulse Ox 95 10/03/17 11:51 Intake & Output 10/02/17 10/03/17 10/03/17 18:59 06:59 18:59 Intake Total 720 800 420 Output Total 1201 300 0 Balance -481 500 420 Weight 86 kg Intake: IV 800 Sodium Chloride 0.9% 1, 800 000 ml @ 50 mls/hr IV . Q20H [facility] Rx#:[id number] Oral 720 420 Output: Urine 1200 300 0 Stool 1 Other: Voiding Method Bedside Commode Bedside Commode # Voids 0 1 2 # Bowel Movements 1 1 - Exam GENERAL: The patient is alert and oriented x3, no acute distress. Well developed , well nourished. HEENT: Pupils are round and equally reacting to light. EOMI. No scleral icterus. No conjunctival pallor. Normocephalic, atraumatic. No pharyngeal erythema. No thyromegaly. CARDIOVASCULAR: S1 and S2 present. No murmurs, rubs, or gallops. PULMONARY: Diminished, crackles scattered throughout the right lung with occasional expiratory wheezing ABDOMEN: Soft, nontender, nondistended, normoactive bowel sounds. No palpable organomegaly. MUSCULOSKELETAL: No joint swelling or deformity. EXTREMITIES: No cyanosis, clubbing, or pedal edema. NEUROLOGICAL: Gross neurological examination did not reveal any focal deficits. SKIN: No rashes. - Labs CBC & Chem 7: 10/03/17 06:24 10/03/17 06:24 Labs: Abnormal Lab Results - Last 24 Hours (Table) 10/02/17 10/02/17 10/03/17 Range/Units 16:40 21:04 06:08 WBC (3.8-10.6) k/uL RBC (3.80-5.40) m/uL Hgb (11.4-16.0) gm/dL PT (9.0-12.0) sec INR (<1.2) Chloride (98-107) mmol/L BUN (7-17) mg/dL Creatinine (0.52-1.04) mg/dL Glucose (74-99) mg/dL POC Glucose (mg/dL) 205 H 206 H 202 H (75-99) mg/dL 10/03/17 10/03/17 10/03/17 Range/Units 06:24 06:24 06:24 WBC 19.1 H (3.8-10.6) k/uL RBC 3.69 L (3.80-5.40) m/uL Hgb 10.9 L (11.4-16.0) gm/dL PT 26.3 H (9.0-12.0) sec INR 2.7 H (<1.2) Chloride 108 H (98-107) mmol/L BUN 23 H (7-17) mg/dL Creatinine 0.49 L (0.52-1.04) mg/dL Glucose 202 H (74-99) mg/dL POC Glucose (mg/dL) (75-99) mg/dL 10/03/17 Range/Units 11:32 WBC (3.8-10.6) k/uL RBC (3.80-5.40) m/uL Hgb (11.4-16.0) gm/dL PT (9.0-12.0) sec INR (<1.2) Chloride (98-107) mmol/L BUN (7-17) mg/dL Creatinine (0.52-1.04) mg/dL Glucose (74-99) mg/dL POC Glucose (mg/dL) 173 H (75-99) mg/dL Microbiology - Last 24 Hours (Table) 10/01/17 23:52 Gram Stain - Preliminary Sputum 10/01/17 18:12 Blood Culture - Preliminary Blood No Growth after 24 hours 10/01/17 17:13 Blood Culture - Preliminary Blood No Growth after 24 hours Assessment and Plan Assessment: #1 sepsis: Secondary to right middle lobe pneumonia and acute COPD exacerbation #2 acute hypoxic respiratory failure and hypercapnic respiratory failure secondary to pneumonia and COPD exacerbation. #3 severe pulmonary hypertension, mitral and tricuspid regurgitation, normal LV function EF 60-65% #4 chest pain floor: Pleuritic in nature secondary to pneumonia. #5 elevated troponin: Secondary to sepsis patient appears to have noncardiac chest pain; 0.560, 0.376 #6 hypertension #7 history of PE for which patient is on Coumadin therapy #8 continued tobacco use: Counseling provided Plan: Continue on current medication regime, nebulized bronchodilators, Rocephin , Zithromax ,steroids, monitoring. Cardizem added to med regime per cardiology , continue monitoring response. Discharge planning in progress for tentatively tomorrow, once heart rates better controlled. Follow closely with cardiology and pulmonary. Smoking cessation readdressed. The impression and plan of care has been dictated as directed. : I performed a history and examination of this patient, discussed the same with the dictator. I agree with the dictator's note ,documented as a scribe. Any additional findings or plans will be noted.
[2017-10-03 17:08] LABS: Glucose,Whole Blood 188 mg/dL (75-99)
[2017-10-03] MEDS: WARFARIN 5 MG TAB PO SCH (18:27)
[2017-10-03 20:44] LABS: Glucose,Whole Blood 172 mg/dL (75-99)
[2017-10-04] MEDS: SODIUM CHLORIDE 0.9% 1,000 ML IV SCH ×2 (01:14→20:38)
[2017-10-04] MEDS: IPRATROPIUM-ALBUTEROL 3 ML NEB INHALATION PRN (03:33)
[2017-10-04 06:19] LABS: Glucose,Whole Blood 199 mg/dL (75-99)
[2017-10-04] MEDS: INSULIN LISPRO (humaLOG) 300 UNIT/3 ML VIAL SQ SCH ×4 (06:36→21:40)
[2017-10-04 06:37] LABS: Basophils % (A) 0 %; CH 28.7; Eosinophils % (A) 0 %; HCT 32.8 % (34.0-46.0); HDW 2.59; HGB 10.3 gm/dL (11.4-16.0); Hypochromasia Slight; Luc # (Auto) 0.13; Luc % (Auto) 1; Lymphocytes # (A) 0.9 k/uL (1.0-4.8); Lymphocytes % (A) 8 %; MCH 29.3 pg (25.0-35.0); MCHC 31.5 g/dL (31.0-37.0); Mean Platelet Volume 7.6; Monocytes # (A) 0.5 k/uL (0-1.0); Monocytes % (A) 4 %; Neutrophils # (A) 9.9 k/uL (1.3-7.7); Neutrophils % (A) 87 %; RBC 3.53 m/uL (3.80-5.40); RDW 14.1 % (11.5-15.5); WBC 11.5 k/uL (3.8-10.6); WBC (Perox) 11.92
[2017-10-04 06:48] LABS: Anion Gap 7 mmol/L; Blood Urea Nitrogen 29 mg/dL (7-17); Calcium 9.3 mg/dL (8.4-10.2); Carbon Dioxide 24 mmol/L (22-30); Chloride 108 mmol/L (98-107); Glucose 214 mg/dL (74-99); Magnesium 1.7 mg/dL (1.6-2.3); Non-African American GFR(MDRD) >60 (>60 ml/min/1.73 sqM); Potassium 4.2 mmol/L (3.5-5.1); Sodium 139 mmol/L (137-145)
[2017-10-04 06:50] LABS: INR 2.9 (<1.2); Prothrombin Time 28.3 sec (9.0-12.0)
--- NOTE | 2017-10-04 07:07 | XR ---
EXAMINATION TYPE: XR chest 2V DATE OF EXAM: 10/04/2017 HISTORY: right middle lobe pneumonia, follow-up. REFERENCE: Previous study dated 10/03/2017. FINDINGS: There is improved aeration of the right upper lobe infiltrate.. The right hilum is prominen t. I could not exclude an underlying mass. The left lung is clear. Heart size is mildly prominent. Pl eural spaces are clear. IMPRESSION: 1. IMPROVED RIGHT UPPER LOBE AERATION. 2. MILD CARDIOMEGALY. 3. I CANNOT EXCLUDE AN UNDERLYING RIGHT HILAR MASS. I SUSPECT THIS FROM THE GAS CT DATED 10/01/2017.
[2017-10-04] MEDS: IPRATROPIUM-ALBUTEROL 3 ML NEB INHALATION SCH ×4 (07:54→21:07)
[2017-10-04] MEDS: HYDROcodone/APAP 10-325MG 1 EACH TAB PO PRN ×2 (08:18→20:39)
[2017-10-04] MEDS: methylPREDNISolone SOD SUCCI 40 MG/ML 1 ML VIAL IV SCH ×3 (08:19→23:35)
[2017-10-04] MEDS: DILTIAZEM ORAL 60 MG TAB PO SCH ×2 (08:19→16:26)
[2017-10-04] MEDS: VALSARTAN 160 MG TAB PO SCH (08:19)
[2017-10-04] MEDS: AZITHROMYCIN 500 MG TAB PO SCH (08:19)
[2017-10-04] MEDS: FUROSEMIDE 40 MG TAB PO SCH (08:19)
[2017-10-04] MEDS: SYMBICORT 160-4.5 MCG INHALER INHALATION SCH ×2 (08:22→21:07)
[2017-10-04 11:28] LABS: Glucose,Whole Blood 181 mg/dL (75-99)
--- NOTE | 2017-10-04 11:43 | P.PN ---
Subjective Progress Note Date: 10/04/17 This is a pleasant 62-year-old female patient known history of advanced oxygen- dependent COPD was admitted on a combination of Dulera and Spiriva on an outpatient basis. The patient was in the hospital back in July where she was diagnosed having pulmonary embolism and she was discharged home on Coumadin. Around 2 days ago the patient started having increased cough and congestion and she subsequently started having chills and fever with a temperature of 102. She presented to [facility] where she was found to have large consolidation of the right lung and subsequent CAT scan of the chest showed consolidation of the right upper lobe and the right middle lobe. The patient also has calcified granuloma and mediastinal lymph node calcification. No evidence of any pleural effusion. The patient was therapeutic on Coumadin with an INR of 2.1. No travel history. No sick contacts. No previous history of MRSA exposure. Currently she is on a combination of Rocephin and Zithromax. Sputum Gram stain and cultures still pending for now. Blood cultures of been sent and the results are still pending. Meanwhile the patient is on oxygen at 3 L/m nasal cannula and his saturations around 96%. She is slightly tachycardic with a heart rate between 100-120 and she is slightly tachypneic. No nausea. No vomiting. No change in mental status and this point. One is minimally elevated at 0.3. ProBNP level is at 7550. Influenza screen was negative. White cell count was 23.4. On 10/03/2017 I'm seeing this patient for a follow-up. The patient is being treated for a right middle lobe pneumonia. INR is therapeutic at 2.7. White cell count is elevated at 19.1. Chest x-ray shows some slight improvement in the right middle lobe pulmonary infiltrates. Patient clinically is slightly improved compared to yesterday. She continues to have a congested cough. Unable to bring up much of sputum. More successful and collecting a sputum sample is showing gradual gram-positive cocci in pairs. No hemoptysis at this point. No pleurisy. No change in mental status. No nausea vomiting. No hemodynamic instability. 2016 the patient is being seen for a follow-up. The patient is feeling well. The patient has no specific complaints. Her INR today is therapeutic at 2.9. She is still on a combination of Rocephin and Zithromax. Chest x-ray shows improvement in the right mid lobe pulmonary infiltrate and the patient is afebrile hemodynamically stable and she is responding to the treatment. She is feeling better. We'll continue same antibiotic coverage. The final sputum Gram stain and culture has not resulted. The blood cultures of been all negative. Objective - Vital Signs Vital signs: Vital Signs Temp 97.4 F L 10/04/17 11:35 Pulse 92 10/04/17 11:37 Resp 24 10/04/17 11:35 BP 137/63 10/04/17 11:35 Pulse Ox 96 10/04/17 11:35 Intake & Output 10/03/17 10/04/17 10/04/17 18:59 06:59 18:59 Intake Total 642 800 240 Output Total 300 2 Balance 342 800 238 Weight 86.9 kg Intake: IV 800 Sodium Chloride 0.9% 1, 800 000 ml @ 50 mls/hr IV . Q20H [facility] Rx#:[id number] Oral 642 240 Output: Urine 300 Stool 2 Other: Voiding Method Bedside Commode Toilet Toilet # Voids 2 1 # Bowel Movements 1 1 - Exam Gen. appearance the patient is calm, not in acute respiratory distress. Slightly tachycardic no significant tachypnea this point. She is not using excessive muscle breathing.Head exam was generally normal. There was no scleral icterus or corneal arcus. Mucous membranes were moist. Neck is supple and the patient is no JVDs no goiter or neck masses. She has or mental conditions. Lung sounds are diminished and the patient is having some limited crackles over the right lateral and anterior chest area. Scattered expiratory wheezes. Otherwise no other abnormalities are noted.Cardiac exam revealed the PMI to be normally situated and sized. The rhythm was regular and no extrasystoles were noted during several minutes of auscultation. The first and second heart sounds were normal and physiologic splitting of the second heart sound was noted. There were no murmurs, rubs, clicks, or gallops.Abdominal exam revealed normal bowel sounds. The abdomen was soft, non-tender, and without masses, organomegaly , or appreciable enlargement of the abdominal aorta.Examination of the extremities revealed easily palpable radial, femoral and pedal pulses. There was no cyanosis, clubbing or edema.Examination of the skin revealed no evidence of significant rashes, suspicious appearing nevi or other concerning lesions. Neurologically the patient is awake and alert and there is no focal neurological deficit at this point - Labs CBC & Chem 7: 10/04/17 06:11 10/04/17 06:11 Labs: Abnormal Lab Results - Last 24 Hours (Table) 10/03/17 10/03/17 10/04/17 Range/Units 16:26 20:37 06:11 WBC (3.8-10.6) k/uL RBC (3.80-5.40) m/uL Hgb (11.4-16.0) gm/dL Hct (34.0-46.0) % Neutrophils # (1.3-7.7) k/uL Lymphocytes # (1.0-4.8) k/uL PT 28.3 H (9.0-12.0) sec INR 2.9 H (<1.2) Chloride (98-107) mmol/L BUN (7-17) mg/dL Creatinine (0.52-1.04) mg/dL Glucose (74-99) mg/dL POC Glucose (mg/dL) 188 H 172 H (75-99) mg/dL 10/04/17 10/04/17 10/04/17 Range/Units 06:11 06:11 06:17 WBC 11.5 H (3.8-10.6) k/uL RBC 3.53 L (3.80-5.40) m/uL Hgb 10.3 L (11.4-16.0) gm/dL Hct 32.8 L (34.0-46.0) % Neutrophils # 9.9 H (1.3-7.7) k/uL Lymphocytes # 0.9 L (1.0-4.8) k/uL PT (9.0-12.0) sec INR (<1.2) Chloride 108 H (98-107) mmol/L BUN 29 H (7-17) mg/dL Creatinine 0.50 L (0.52-1.04) mg/dL Glucose 214 H (74-99) mg/dL POC Glucose (mg/dL) 199 H (75-99) mg/dL 10/04/17 Range/Units 11:26 WBC (3.8-10.6) k/uL RBC (3.80-5.40) m/uL Hgb (11.4-16.0) gm/dL Hct (34.0-46.0) % Neutrophils # (1.3-7.7) k/uL Lymphocytes # (1.0-4.8) k/uL PT (9.0-12.0) sec INR (<1.2) Chloride (98-107) mmol/L BUN (7-17) mg/dL Creatinine (0.52-1.04) mg/dL Glucose (74-99) mg/dL POC Glucose (mg/dL) 181 H (75-99) mg/dL Microbiology - Last 24 Hours (Table) 10/01/17 23:52 Gram Stain - Final Sputum Sputum Culture - Final 10/01/17 18:12 Blood Culture - Preliminary Blood No Growth after 48 hours 10/01/17 17:13 Blood Culture - Preliminary Blood No Growth after 48 hours Assessment and Plan Plan: Assessment 1 acute bilateral lobar pneumonia involving the right lung, right middle lobe/ right upper lobe. The patient has dense consolidation typical of an acute pneumonic process. On 10/03/2017 the patient has gram-positive cocci in pairs in the sputum sample. Chest x-ray showed limited improvement in the right midlung consolidation. Clinically stable. On 10/04/2017 the patient clinically is feeling better. The chest x-rays also showing improvement in the right middle lobe pulmonary infiltration. Final cultures have not been resulted yet. He was, the acute leukocytosis improved and the patient's white count has dropped from 23 down to 11.5. 2 acute febrile illness secondary to pneumonia , currently afebrile 3 acute leukocytosis secondary to above 4 recent hospitalization for pulmonary embolism and the patient has a therapeutic PT/INR while being on Coumadin 5 advanced COPD, oxygen dependent, maintained on a combination of Spiriva and alert on outpatient basis 6 chronic hypoxic respiratory failure 7 history of DVT 8 degenerative arthritis Plan She has likely a pneumococcal pneumonia. The patient is clinically improving. Chest x-ray also shows improvement in the right midlung consolidation. We'll continue same treatment.
[2017-10-04] MEDS ORDERED: DILTIAZEM ORAL 30 MG TAB PO SCH (12:23)
--- NOTE | 2017-10-04 12:37 | P.PN ---
Subjective Progress Note Date: 10/04/17 Principal diagnosis: Sinus tachycardia This is a 62-year-old female with past medical history significant for advanced COPD, chronic respiratory failure, on home O2 at home, history of pulmonary embolism on chronic anticoagulation, she presented to the hospital with symptoms of progressively worsening shortness of breath. She is currently receiving treatment for pneumonia. Cardiology was consulted initially because patient's cardiac enzymes came back to be slightly abnormal. It is not felt that the patient had a myocardial infarction, abnormal troponins were likely secondary to oxygen supply and demand mismatch. Patient was also noted to be tachycardic. Echocardiogram with Doppler study was performed which revealed an ejection fraction of 60-65%, mild to moderate mitral regurg with mild to moderate tricuspid regurg and severe pulmonary hypertension noted. At the time of my examination this morning, heart rate was up in the 1 teens, seems to go up with activity, when the patient is at rest staying in the 90s. We will start the patient on some oral Cardizem today. I'll follow-up with the patient today, the heart rate continues to be between 90s to 100. She is on Cardizem at 60 mg by mouth 3 times a day which I am going to increase it. Objective - Vital Signs Vital signs: Vital Signs Temp 97.4 F L 10/04/17 11:35 Pulse 92 10/04/17 11:37 Resp 24 10/04/17 11:35 BP 137/63 10/04/17 11:35 Pulse Ox 96 10/04/17 11:35 Intake & Output 10/03/17 10/04/17 10/04/17 18:59 06:59 18:59 Intake Total 642 800 240 Output Total 300 2 Balance 342 800 238 Weight 86.9 kg Intake: IV 800 Sodium Chloride 0.9% 1, 800 000 ml @ 50 mls/hr IV . Q20H [facility] Rx#:[id number] Oral 642 240 Output: Urine 300 Stool 2 Other: Voiding Method Bedside Commode Toilet Toilet # Voids 2 1 # Bowel Movements 1 1 - Constitutional General appearance: Present: no acute distress - Respiratory Respiratory: bilateral: diminished, wheezing - Cardiovascular Rhythm: regular Heart sounds: normal: S1, S2 - Labs CBC & Chem 7: 10/04/17 06:11 10/04/17 06:11 Labs: Abnormal Lab Results - Last 24 Hours (Table) 10/03/17 10/03/17 10/04/17 Range/Units 16:26 20:37 06:11 WBC (3.8-10.6) k/uL RBC (3.80-5.40) m/uL Hgb (11.4-16.0) gm/dL Hct (34.0-46.0) % Neutrophils # (1.3-7.7) k/uL Lymphocytes # (1.0-4.8) k/uL PT 28.3 H (9.0-12.0) sec INR 2.9 H (<1.2) Chloride (98-107) mmol/L BUN (7-17) mg/dL Creatinine (0.52-1.04) mg/dL Glucose (74-99) mg/dL POC Glucose (mg/dL) 188 H 172 H (75-99) mg/dL 10/04/17 10/04/17 10/04/17 Range/Units 06:11 06:11 06:17 WBC 11.5 H (3.8-10.6) k/uL RBC 3.53 L (3.80-5.40) m/uL Hgb 10.3 L (11.4-16.0) gm/dL Hct 32.8 L (34.0-46.0) % Neutrophils # 9.9 H (1.3-7.7) k/uL Lymphocytes # 0.9 L (1.0-4.8) k/uL PT (9.0-12.0) sec INR (<1.2) Chloride 108 H (98-107) mmol/L BUN 29 H (7-17) mg/dL Creatinine 0.50 L (0.52-1.04) mg/dL Glucose 214 H (74-99) mg/dL POC Glucose (mg/dL) 199 H (75-99) mg/dL 10/04/17 Range/Units 11:26 WBC (3.8-10.6) k/uL RBC (3.80-5.40) m/uL Hgb (11.4-16.0) gm/dL Hct (34.0-46.0) % Neutrophils # (1.3-7.7) k/uL Lymphocytes # (1.0-4.8) k/uL PT (9.0-12.0) sec INR (<1.2) Chloride (98-107) mmol/L BUN (7-17) mg/dL Creatinine (0.52-1.04) mg/dL Glucose (74-99) mg/dL POC Glucose (mg/dL) 181 H (75-99) mg/dL Microbiology - Last 24 Hours (Table) 10/01/17 23:52 Gram Stain - Final Sputum Sputum Culture - Final 10/01/17 18:12 Blood Culture - Preliminary Blood No Growth after 48 hours 10/01/17 17:13 Blood Culture - Preliminary Blood No Growth after 48 hours Assessment and Plan Assessment: This is a pleasant 62-year-old female patient with a chronic respiratory failure and history of PE presented to the hospital with progressive dyspnea associated with fever. The patient was diagnosed with pneumonia/sepsis and she is currently on antibiotic. The cardiac enzymes were checked and came in to be slightly abnormal. The EKG showed only nonspecific changes. The patient currently pain-free. At this point I will continue treating the patient for pneumonia/sepsis/COPD exacerbation. Once his the patient is feeling better she might benefit from a stress test either as inpatient or as an outpatient.she is on Coumadin which we will continue. We will follow-up on the echocardiogram as well to assess for wall motion abnormalities. We will continue following up with the patient.
[2017-10-04] MEDS: DILTIAZEM ORAL 30 MG TAB PO SCH ×2 (16:27→20:37)
[2017-10-04] MEDS: WARFARIN 5 MG TAB PO SCH (16:27)
[2017-10-04 16:35] LABS: Glucose,Whole Blood 173 mg/dL (75-99)
[2017-10-04 21:34] LABS: Glucose,Whole Blood 249 mg/dL (75-99)
[2017-10-04] MEDS ORDERED: ARTIFICIAL TEARS-HYPROMELLOSE DROPS 15 ML BTL BOTH EYES PRN (22:21)
[2017-10-05] MEDS: HYDROcodone/APAP 10-325MG 1 EACH TAB PO PRN ×4 (01:58→22:48)
[2017-10-05 06:06] LABS: Glucose,Whole Blood 161 mg/dL (75-99)
[2017-10-05] MEDS: INSULIN LISPRO (humaLOG) 300 UNIT/3 ML VIAL SQ SCH ×4 (06:13→21:44)
[2017-10-05 06:43] LABS: Basophils % (A) 0 %; CHCM 31.1; Eosinophils % (A) 0 %; HCT 34.5 % (34.0-46.0); HDW 2.61; HGB 10.7 gm/dL (11.4-16.0); Hypochromasia Slight; Luc # (Auto) 0.08; Luc % (Auto) 1; Lymphocytes # (A) 1.1 k/uL (1.0-4.8); Lymphocytes % (A) 14 %; MCH 29.1 pg (25.0-35.0); MCHC 31.1 g/dL (31.0-37.0); MCV 93.7 fL (80.0-100.0); Mean Platelet Volume 7.3; Monocytes # (A) 0.3 k/uL (0-1.0); Monocytes % (A) 3 %; Neutrophils # (A) 6.2 k/uL (1.3-7.7); Neutrophils % (A) 81 %; RBC 3.68 m/uL (3.80-5.40); RDW 14.2 % (11.5-15.5); WBC 7.7 k/uL (3.8-10.6); WBC (Perox) 8.03
[2017-10-05 06:54] LABS: INR 4.7 (<1.2); Prothrombin Time 47.1 sec (9.0-12.0)
[2017-10-05 06:57] LABS: Anion Gap 8 mmol/L; Blood Urea Nitrogen 30 mg/dL (7-17); Carbon Dioxide 26 mmol/L (22-30); Chloride 107 mmol/L (98-107); Glucose 171 mg/dL (74-99); Magnesium 1.8 mg/dL (1.6-2.3); Non-African American GFR(MDRD) >60 (>60 ml/min/1.73 sqM); Potassium 4.3 mmol/L (3.5-5.1); Sodium 141 mmol/L (137-145)
[2017-10-05] MEDS: IPRATROPIUM-ALBUTEROL 3 ML NEB INHALATION SCH ×4 (07:17→20:01)
[2017-10-05] MEDS: SYMBICORT 160-4.5 MCG INHALER INHALATION SCH ×3 (07:19→20:01)
[2017-10-05] MEDS: DILTIAZEM ORAL 30 MG TAB PO SCH ×3 (07:54→21:44)
[2017-10-05] MEDS: FUROSEMIDE 40 MG TAB PO SCH (07:54)
[2017-10-05] MEDS: methylPREDNISolone SOD SUCCI 40 MG/ML 1 ML VIAL IV SCH ×3 (07:54→22:48)
[2017-10-05] MEDS: AZITHROMYCIN 500 MG TAB PO SCH (07:54)
[2017-10-05] MEDS: VALSARTAN 160 MG TAB PO SCH (07:54)
--- NOTE | 2017-10-05 09:41 | P.PN ---
Subjective Progress Note Date: 10/04/17 Progress note being dictated for Dr. Langford Interval history:Patient was admitted for COPD exacerbation and the right upper lobe pneumonia, looks better compared to yesterday but not feeling better is still coughing shot of breath. Constitutional: Denied any fatigue denied any fever. Cardio vascular: denied any chest pain, palpitations Gastrointestinal denied any nausea vomiting Pulmonary: As mentioned in HPI Neurologic denied any new focal deficits 10/03/2017. Maintained on nebulized bronchodilators, steroids, Rocephin, Zithromax. Breathing slowly improving. Today heart rates escalating higher up into the 160s, post-steroid administration, nebulizers and after activity. At rest, in the 110s. Telemetry sinus rhythm to sinus tach. Cardizem added to med regime as per cardiology. Echo reporting normal LV function, EF 60-65%, [id number] mitral and tricuspid regurgitation, severe pulmonary hypertension. Anticoagulated on Coumadin, INR 2.7. 10/04/2017 Cardizem added to med regime yesterday, telemetry reporting sinus rhythm to sinus tach, heart rates improving, up to 120s. Cardiology discussing stress test once respiratory status improves. INR 2.9. Maintained on Rocephin and Zithromax. Chest x-ray reports improved right upper lobe aeration, possible underlying right hilar mass. Afebrile. Sputum culture and preliminary blood cultures negative. Maintaining O2 sats in the mid 90s on 3 L nasal cannula. Objective - Vital Signs Vital signs: Vital Signs Temp 97.6 F 10/04/17 16:00 Pulse 91 10/04/17 17:40 Resp 24 10/04/17 16:00 BP 138/80 10/04/17 16:00 Pulse Ox 97 10/04/17 16:00 Intake & Output 10/03/17 10/04/17 10/04/17 18:59 06:59 18:59 Intake Total 642 800 480 Output Total 300 303 Balance 342 800 177 Weight 86.9 kg Intake: IV 800 Sodium Chloride 0.9% 1, 800 000 ml @ 50 mls/hr IV . Q20H [facility] Rx#:[id number] Oral 642 480 Output: Urine 300 300 Stool 3 Other: Voiding Method Bedside Commode Toilet Toilet # Voids 2 1 # Bowel Movements 1 1 - Exam GENERAL: The patient is alert and oriented x3, no acute distress. Well developed , well nourished. HEENT: Pupils are round and equally reacting to light. EOMI. No scleral icterus. No conjunctival pallor. Normocephalic, atraumatic. No pharyngeal erythema. No thyromegaly. CARDIOVASCULAR: S1 and S2 present. No murmurs, rubs, or gallops. Tachycardic. PULMONARY: Diminished, crackles scattered throughout the right lung with occasional expiratory wheezing ABDOMEN: Soft, nontender, nondistended, normoactive bowel sounds. No palpable organomegaly. MUSCULOSKELETAL: No joint swelling or deformity. EXTREMITIES: No cyanosis, clubbing, or pedal edema. NEUROLOGICAL: Gross neurological examination did not reveal any focal deficits. SKIN: No rashes. - Labs CBC & Chem 7: 10/05/17 06:10 10/05/17 06:10 Labs: Abnormal Lab Results - Last 24 Hours (Table) 10/03/17 10/04/17 10/04/17 Range/Units 20:37 06:11 06:11 WBC 11.5 H (3.8-10.6) k/uL RBC 3.53 L (3.80-5.40) m/uL Hgb 10.3 L (11.4-16.0) gm/dL Hct 32.8 L (34.0-46.0) % Neutrophils # 9.9 H (1.3-7.7) k/uL Lymphocytes # 0.9 L (1.0-4.8) k/uL PT 28.3 H (9.0-12.0) sec INR 2.9 H (<1.2) Chloride (98-107) mmol/L BUN (7-17) mg/dL Creatinine (0.52-1.04) mg/dL Glucose (74-99) mg/dL POC Glucose (mg/dL) 172 H (75-99) mg/dL 10/04/17 10/04/17 10/04/17 Range/Units 06:11 06:17 11:26 WBC (3.8-10.6) k/uL RBC (3.80-5.40) m/uL Hgb (11.4-16.0) gm/dL Hct (34.0-46.0) % Neutrophils # (1.3-7.7) k/uL Lymphocytes # (1.0-4.8) k/uL PT (9.0-12.0) sec INR (<1.2) Chloride 108 H (98-107) mmol/L BUN 29 H (7-17) mg/dL Creatinine 0.50 L (0.52-1.04) mg/dL Glucose 214 H (74-99) mg/dL POC Glucose (mg/dL) 199 H 181 H (75-99) mg/dL 10/04/17 Range/Units 16:25 WBC (3.8-10.6) k/uL RBC (3.80-5.40) m/uL Hgb (11.4-16.0) gm/dL Hct (34.0-46.0) % Neutrophils # (1.3-7.7) k/uL Lymphocytes # (1.0-4.8) k/uL PT (9.0-12.0) sec INR (<1.2) Chloride (98-107) mmol/L BUN (7-17) mg/dL Creatinine (0.52-1.04) mg/dL Glucose (74-99) mg/dL POC Glucose (mg/dL) 173 H (75-99) mg/dL Microbiology - Last 24 Hours (Table) 10/01/17 23:52 Gram Stain - Final Sputum Sputum Culture - Final 10/01/17 18:12 Blood Culture - Preliminary Blood No Growth after 48 hours 10/01/17 17:13 Blood Culture - Preliminary Blood No Growth after 48 hours Assessment and Plan Assessment: #1 sepsis: Secondary to right middle lobe pneumonia and acute COPD exacerbation #2 acute hypoxic respiratory failure and hypercapnic respiratory failure secondary to pneumonia and COPD exacerbation. #3 severe pulmonary hypertension, mitral and tricuspid regurgitation, normal LV function EF 60-65% #4 chest pain floor: Pleuritic in nature secondary to pneumonia. #5 elevated troponin: Secondary to sepsis patient appears to have noncardiac chest pain; 0.560, 0.376 #6 hypertension #7 history of PE for which patient is on Coumadin therapy #8 continued tobacco use: Counseling provided Plan: Continue on current medication regime, nebulized bronchodilators, Rocephin , Zithromax ,steroids, monitoring. Cardizem increased as per cardiology. Discharge planning in progress for [facility], once heart rates better controlled, pulmonary status improves. Cardiology as mentioned above also discussing potential stress test once respiratory function improved. Smoking cessation readdressed. The impression and plan of care has been dictated as directed. : I performed a history and examination of this patient, discussed the same with the dictator. I agree with the dictator's note ,documented as a scribe. Any additional findings or plans will be noted.
--- NOTE | 2017-10-05 10:10 | XR ---
EXAMINATION TYPE: XR chest 2V DATE OF EXAM: 10/05/2017 HISTORY: right middle lobe pneumonia, follow-up. REFERENCE: Previous study dated 10/04/2017. FINDINGS: Lung volumes are prominent. There is a right upper lobe infiltrate. This may have worsened slightly. There is a right hilar mass. There is a 1.5 cm mass in the right upper lobe. Pleural spaces are clear. Heart size is upper limits of normal. IMPRESSION: 1. MILD WORSENING OF THE PATIENT'S RIGHT UPPER LOBE INFILTRATE. 2. RIGHT HILAR MASS LESION. 3. RIGHT UPPER LOBE PULMONARY NODULE. 4. BORDERLINE CARDIOMEGALY.
--- NOTE | 2017-10-05 11:10 | P.PN ---
Subjective Progress Note Date: 10/05/17 Principal diagnosis: Sinus tachycardia This is a 62-year-old female with past medical history significant for advanced COPD, chronic respiratory failure, on home O2 at home, history of pulmonary embolism on chronic anticoagulation, she presented to the hospital with symptoms of progressively worsening shortness of breath. She is currently receiving treatment for pneumonia. Cardiology was consulted initially because patient's cardiac enzymes came back to be slightly abnormal. It is not felt that the patient had a myocardial infarction, abnormal troponins were likely secondary to oxygen supply and demand mismatch. Patient was also noted to be tachycardic. Echocardiogram with Doppler study was performed which revealed an ejection fraction of 60-65%, mild to moderate mitral regurg with mild to moderate tricuspid regurg and severe pulmonary hypertension noted. At the time of my examination this morning, heart rate was up in the 1 teens, seems to go up with activity, when the patient is at rest staying in the 90s. We will start the patient on some oral Cardizem today. I'll follow-up with the patient today, the heart rate has improved on the current dose of Cardizem by mouth which is 90 mg 3 times a day. Objective - Vital Signs Vital signs: Vital Signs Temp 97.6 F 10/05/17 08:02 Pulse 101 H 10/05/17 08:02 Resp 18 10/05/17 08:02 BP 135/61 10/05/17 08:02 Pulse Ox 97 10/05/17 08:02 Intake & Output 10/04/17 10/05/17 10/05/17 18:59 06:59 18:59 Intake Total 702 800 240 Output Total 303 1 Balance 399 800 239 Weight 88.2 kg Intake: IV 800 Sodium Chloride 0.9% 1, 800 000 ml @ 50 mls/hr IV . Q20H [facility] Rx#:[id number] Oral 702 240 Output: Urine 300 Stool 3 1 Other: Voiding Method Toilet Toilet Toilet # Voids 1 1 # Bowel Movements 1 - Constitutional General appearance: Present: no acute distress - Respiratory Respiratory: bilateral: diminished - Cardiovascular Rhythm: regular Heart sounds: normal: S1, S2 - Labs CBC & Chem 7: 10/05/17 06:10 10/05/17 06:10 Labs: Abnormal Lab Results - Last 24 Hours (Table) 10/04/17 10/04/17 10/04/17 Range/Units 11:26 16:25 21:20 RBC (3.80-5.40) m/uL Hgb (11.4-16.0) gm/dL PT (9.0-12.0) sec INR (<1.2) BUN (7-17) mg/dL Glucose (74-99) mg/dL POC Glucose (mg/dL) 181 H 173 H 249 H (75-99) mg/dL 10/05/17 10/05/17 10/05/17 Range/Units 05:52 06:10 06:10 RBC 3.68 L (3.80-5.40) m/uL Hgb 10.7 L (11.4-16.0) gm/dL PT 47.1 H (9.0-12.0) sec INR 4.7 H (<1.2) BUN (7-17) mg/dL Glucose (74-99) mg/dL POC Glucose (mg/dL) 161 H (75-99) mg/dL 10/05/17 Range/Units 06:10 RBC (3.80-5.40) m/uL Hgb (11.4-16.0) gm/dL PT (9.0-12.0) sec INR (<1.2) BUN 30 H (7-17) mg/dL Glucose 171 H (74-99) mg/dL POC Glucose (mg/dL) (75-99) mg/dL Microbiology - Last 24 Hours (Table) 10/01/17 18:12 Blood Culture - Preliminary Blood No Growth after 72 hours 10/01/17 17:13 Blood Culture - Preliminary Blood No Growth after 72 hours 10/01/17 23:52 Gram Stain - Final Sputum Sputum Culture - Final Assessment and Plan Assessment: This is a pleasant 62-year-old female patient with a chronic respiratory failure and history of PE presented to the hospital with progressive dyspnea associated with fever. The patient was diagnosed with pneumonia/sepsis and she is currently on antibiotic. The cardiac enzymes were checked and came in to be slightly abnormal. The EKG showed only nonspecific changes. The patient currently pain-free. I will continue the current medical treatment with oral Cardizem. The patient need to have a stress test as an outpatient to brought any severe underlying CAD. At this point will follow-up with the patient on when necessary case.
[2017-10-05 11:27] LABS: Glucose,Whole Blood 175 mg/dL (75-99)
--- NOTE | 2017-10-05 13:34 | P.PN ---
Subjective Progress Note Date: 10/05/17 This is a pleasant 62-year-old female patient known history of advanced oxygen- dependent COPD was admitted on a combination of Dulera and Spiriva on an outpatient basis. The patient was in the hospital back in July where she was diagnosed having pulmonary embolism and she was discharged home on Coumadin. Around 2 days ago the patient started having increased cough and congestion and she subsequently started having chills and fever with a temperature of 102. She presented to [facility] where she was found to have large consolidation of the right lung and subsequent CAT scan of the chest showed consolidation of the right upper lobe and the right middle lobe. The patient also has calcified granuloma and mediastinal lymph node calcification. No evidence of any pleural effusion. The patient was therapeutic on Coumadin with an INR of 2.1. No travel history. No sick contacts. No previous history of MRSA exposure. Currently she is on a combination of Rocephin and Zithromax. Sputum Gram stain and cultures still pending for now. Blood cultures of been sent and the results are still pending. Meanwhile the patient is on oxygen at 3 L/m nasal cannula and his saturations around 96%. She is slightly tachycardic with a heart rate between 100-120 and she is slightly tachypneic. No nausea. No vomiting. No change in mental status and this point. One is minimally elevated at 0.3. ProBNP level is at 7550. Influenza screen was negative. White cell count was 23.4. On 10/03/2017 I'm seeing this patient for a follow-up. The patient is being treated for a right middle lobe pneumonia. INR is therapeutic at 2.7. White cell count is elevated at 19.1. Chest x-ray shows some slight improvement in the right middle lobe pulmonary infiltrates. Patient clinically is slightly improved compared to yesterday. She continues to have a congested cough. Unable to bring up much of sputum. More successful and collecting a sputum sample is showing gradual gram-positive cocci in pairs. No hemoptysis at this point. No pleurisy. No change in mental status. No nausea vomiting. No hemodynamic instability. 10/04/2017 the patient is being seen for a follow-up. The patient is feeling well. The patient has no specific complaints. Her INR today is therapeutic at 2.9. She is still on a combination of Rocephin and Zithromax. Chest x-ray shows improvement in the right mid lobe pulmonary infiltrate and the patient is afebrile hemodynamically stable and she is responding to the treatment. She is feeling better. We'll continue same antibiotic coverage. The final sputum Gram stain and culture has not resulted. The blood cultures of been all negative. The patient is seen again today 10/05/2017 in follow-up on the selective care unit. She is awake and alert in no acute distress. She is breathing better today as compared to yesterday. Not quite back to her baseline. Her chest x- ray today was reviewed. Compared to admission she is continuing to clear in the right upper lobe infiltrate. She remains afebrile. Maintaining good O2 saturations in the mid 90s on 3 L/m per nasal cannula. No leukocytosis. Her INR is elevated at 4.7. Objective - Vital Signs Vital signs: Vital Signs Temp 97.8 F 10/05/17 11:44 Pulse 84 10/05/17 11:55 Resp 18 10/05/17 11:44 BP 144/68 10/05/17 11:44 Pulse Ox 95 10/05/17 11:44 Intake & Output 10/04/17 10/05/17 10/05/17 18:59 06:59 18:59 Intake Total 702 800 240 Output Total 303 2 Balance 399 800 238 Weight 88.2 kg Intake: IV 800 Sodium Chloride 0.9% 1, 800 000 ml @ 50 mls/hr IV . Q20H [facility] Rx#:[id number] Oral 702 240 Output: Urine 300 Stool 3 2 Other: Voiding Method Toilet Toilet Toilet # Voids 1 1 # Bowel Movements 1 - Exam Gen. appearance the patient is calm, not in acute respiratory distress. Slightly tachycardic no significant tachypnea this point. She is not using excessive muscle breathing.Head exam was generally normal. There was no scleral icterus or corneal arcus. Mucous membranes were moist. Neck is supple and the patient is no JVDs no goiter or neck masses. She has or mental conditions. Lung sounds are diminished and the patient is having some limited crackles over the right lateral and anterior chest area. Scattered expiratory wheezes. Otherwise no other abnormalities are noted.Cardiac exam revealed the PMI to be normally situated and sized. The rhythm was regular and no extrasystoles were noted during several minutes of auscultation. The first and second heart sounds were normal and physiologic splitting of the second heart sound was noted. There were no murmurs, rubs, clicks, or gallops.Abdominal exam revealed normal bowel sounds. The abdomen was soft, non-tender, and without masses, organomegaly , or appreciable enlargement of the abdominal aorta.Examination of the extremities revealed easily palpable radial, femoral and pedal pulses. There was no cyanosis, clubbing or edema.Examination of the skin revealed no evidence of significant rashes, suspicious appearing nevi or other concerning lesions. Neurologically the patient is awake and alert and there is no focal neurological deficit at this point - Labs CBC & Chem 7: 10/05/17 06:10 10/05/17 06:10 Labs: Abnormal Lab Results - Last 24 Hours (Table) 10/04/17 10/04/17 10/05/17 Range/Units 16:25 21:20 05:52 RBC (3.80-5.40) m/uL Hgb (11.4-16.0) gm/dL PT (9.0-12.0) sec INR (<1.2) BUN (7-17) mg/dL Glucose (74-99) mg/dL POC Glucose (mg/dL) 173 H 249 H 161 H (75-99) mg/dL 10/05/17 10/05/17 10/05/17 Range/Units 06:10 06:10 06:10 RBC 3.68 L (3.80-5.40) m/uL Hgb 10.7 L (11.4-16.0) gm/dL PT 47.1 H (9.0-12.0) sec INR 4.7 H (<1.2) BUN 30 H (7-17) mg/dL Glucose 171 H (74-99) mg/dL POC Glucose (mg/dL) (75-99) mg/dL 10/05/17 Range/Units 11:25 RBC (3.80-5.40) m/uL Hgb (11.4-16.0) gm/dL PT (9.0-12.0) sec INR (<1.2) BUN (7-17) mg/dL Glucose (74-99) mg/dL POC Glucose (mg/dL) 175 H (75-99) mg/dL Microbiology - Last 24 Hours (Table) 10/01/17 18:12 Blood Culture - Preliminary Blood No Growth after 72 hours 10/01/17 17:13 Blood Culture - Preliminary Blood No Growth after 72 hours 10/01/17 23:52 Gram Stain - Final Sputum Sputum Culture - Final Assessment and Plan Assessment: Assessment 1 acute bilateral lobar pneumonia involving the right lung, right middle lobe/ right upper lobe. The patient has dense consolidation typical of an acute pneumonic process. On 10/03/2017 the patient has gram-positive cocci in pairs in the sputum sample. Chest x-ray showed limited improvement in the right midlung consolidation. Clinically stable. On 10/04/2017 the patient clinically is feeling better. The chest x-rays also showing improvement in the right middle lobe pulmonary infiltration. Final cultures have not been resulted yet. He was, the acute leukocytosis improved and the patient's white count has dropped from 23 down to 11.5. On 10/05/2017 patient is improving both clinically and radiographically. She is afebrile. No leukocytosis. 2 acute febrile illness secondary to pneumonia , currently afebrile 3 acute leukocytosis secondary to above, recovered. 4 recent hospitalization for pulmonary embolism and the patient has been on Coumadin, currently supratherapeutic at 4.7. 5 advanced COPD, oxygen dependent, maintained on a combination of Spiriva and alert on outpatient basis 6 chronic hypoxic respiratory failure 7 history of DVT 8 degenerative arthritis Plan The patient was seen and evaluated by Dr. Martínez. Her chest x-ray and labs were reviewed. She does continue to improve clinically and radiographically. Plan for probable discharge in the a.m. We will discontinue the ceftriaxone and azithromycin and initiate Levaquin 750 mg daily. Blood cultures and sputum culture reveals no growth to date. Hold Coumadin tonight. We will continue to follow. I, the cosigning physician, have performed a history and physical examination on the patient. Lung sounds have few scattered rhonchi more so on the right upper lobe.. Maintaining good O2 saturations in the 90s on 3 L/m per nasal cannula.. I have discussed the assessment and plan of care with my nurse practitioner, Nicolle Radford. I attest the above documented note as dictated by her.
--- NOTE | 2017-10-05 15:19 | P.PN ---
Subjective Progress Note Date: 10/05/17 Progress note being dictated for Dr. Langford Interval history:Patient was admitted for COPD exacerbation and the right upper lobe pneumonia, looks better compared to yesterday but not feeling better is still coughing shot of breath. Constitutional: Denied any fatigue denied any fever. Cardio vascular: denied any chest pain, palpitations Gastrointestinal denied any nausea vomiting Pulmonary: As mentioned in HPI Neurologic denied any new focal deficits 10/03/2017. Maintained on nebulized bronchodilators, steroids, Rocephin, Zithromax. Breathing slowly improving. Today heart rates escalating higher up into the 160s, post-steroid administration, nebulizers and after activity. At rest, in the 110s. Telemetry sinus rhythm to sinus tach. Cardizem added to med regime as per cardiology. Echo reporting normal LV function, EF 60-65%, [id number] mitral and tricuspid regurgitation, severe pulmonary hypertension. Anticoagulated on Coumadin, INR 2.7. 10/04/2017 Cardizem added to med regime yesterday, telemetry reporting sinus rhythm to sinus tach, heart rates improving, up to 120s. Cardiology discussing stress test once respiratory status improves. INR 2.9. Maintained on Rocephin and Zithromax. Chest x-ray reports improved right upper lobe aeration, possible underlying right hilar mass. Afebrile. Sputum culture and preliminary blood cultures negative. Maintaining O2 sats in the mid 90s on 3 L nasal cannula. 10/05/2017. Telemetry reporting sinus tachycardia current heart rates in the 110s, up to 120s.reading improving, maintaining O2 sats in the mid 90s on 3 L nasal cannula. chest x-ray noted. Afebrile.declining subacute rehab.denies chest pain, palpitations or increased shortness of breath. Objective - Vital Signs Vital signs: Vital Signs Temp 97.6 F 10/05/17 08:02 Pulse 101 H 10/05/17 08:02 Resp 18 10/05/17 08:02 BP 135/61 10/05/17 08:02 Pulse Ox 97 10/05/17 08:02 Intake & Output 10/04/17 10/05/17 10/05/17 18:59 06:59 18:59 Intake Total 702 800 240 Output Total 303 1 Balance 399 800 239 Weight 88.2 kg Intake: IV 800 Sodium Chloride 0.9% 1, 800 000 ml @ 50 mls/hr IV . Q20H [facility] Rx#:[id number] Oral 702 240 Output: Urine 300 Stool 3 1 Other: Voiding Method Toilet Toilet Toilet # Voids 1 1 # Bowel Movements 1 - Exam GENERAL: The patient is alert and oriented x3, no acute distress. Well developed , well nourished. HEENT: Pupils are round and equally reacting to light. EOMI. No scleral icterus. No conjunctival pallor. Normocephalic, atraumatic. No pharyngeal erythema. No thyromegaly. CARDIOVASCULAR: S1 and S2 present. No murmurs, rubs, or gallops. Tachycardic. PULMONARY: Diminished, crackles scattered throughout the right lung with occasional expiratory wheezing-improving ABDOMEN: Soft, nontender, nondistended, normoactive bowel sounds. No palpable organomegaly. MUSCULOSKELETAL: No joint swelling or deformity. EXTREMITIES: No cyanosis, clubbing, or pedal edema. NEUROLOGICAL: Gross neurological examination did not reveal any focal deficits. SKIN: No rashes. Microbiology 10/01/17 18:12 Blood Blood Culture - Preliminary No Growth after 72 hours 10/01/17 17:13 Blood Blood Culture - Preliminary No Growth after 72 hours 10/01/17 23:52 Sputum Gram Stain - Final 10/01/17 23:52 Sputum Sputum Culture - Final - Labs CBC & Chem 7: 10/05/17 06:10 10/05/17 06:10 Labs: Abnormal Lab Results - Last 24 Hours (Table) 10/04/17 10/04/17 10/04/17 Range/Units 11:26 16:25 21:20 RBC (3.80-5.40) m/uL Hgb (11.4-16.0) gm/dL PT (9.0-12.0) sec INR (<1.2) BUN (7-17) mg/dL Glucose (74-99) mg/dL POC Glucose (mg/dL) 181 H 173 H 249 H (75-99) mg/dL 10/05/17 10/05/17 10/05/17 Range/Units 05:52 06:10 06:10 RBC 3.68 L (3.80-5.40) m/uL Hgb 10.7 L (11.4-16.0) gm/dL PT 47.1 H (9.0-12.0) sec INR 4.7 H (<1.2) BUN (7-17) mg/dL Glucose (74-99) mg/dL POC Glucose (mg/dL) 161 H (75-99) mg/dL 10/05/17 Range/Units 06:10 RBC (3.80-5.40) m/uL Hgb (11.4-16.0) gm/dL PT (9.0-12.0) sec INR (<1.2) BUN 30 H (7-17) mg/dL Glucose 171 H (74-99) mg/dL POC Glucose (mg/dL) (75-99) mg/dL Microbiology - Last 24 Hours (Table) 10/01/17 18:12 Blood Culture - Preliminary Blood No Growth after 72 hours 10/01/17 17:13 Blood Culture - Preliminary Blood No Growth after 72 hours 10/01/17 23:52 Gram Stain - Final Sputum Sputum Culture - Final Assessment and Plan Assessment: #1 sepsis: Secondary to right middle lobe pneumonia and acute COPD exacerbation #2 acute hypoxic respiratory failure and hypercapnic respiratory failure secondary to pneumonia and COPD exacerbation. #3 severe pulmonary hypertension, mitral and tricuspid regurgitation, normal LV function EF 60-65% #4 chest pain floor: Pleuritic in nature secondary to pneumonia. #5 elevated troponin: Secondary to sepsis patient appears to have noncardiac chest pain; 0.560, 0.376 #6 hypertension #7 history of PE for which patient is on Coumadin therapy #8 continued tobacco use: Counseling provided Plan: Continue on current medication regime, nebulized bronchodilators, levaquin ,steroids, monitoring. Cardizem increased as per cardiology. Discharge planning in progress for tomorrow pending pulmonary and cardiology clearance.Smoking cessation readdressed.outpatient stress test recommended per cardiology. The impression and plan of care has been dictated as directed. : I performed a history and examination of this patient, discussed the same with the dictator. I agree with the dictator's note ,documented as a scribe. Any additional findings or plans will be noted.
[2017-10-05 16:35] LABS: Glucose,Whole Blood 211 mg/dL (75-99)
[2017-10-05] MEDS: SODIUM CHLORIDE 0.9% 1,000 ML IV SCH (19:33)
[2017-10-05 21:29] LABS: Glucose,Whole Blood 260 mg/dL (75-99)
[2017-10-05] MEDS: IPRATROPIUM-ALBUTEROL 3 ML NEB INHALATION PRN (23:15)
[2017-10-06] MEDS: HYDROcodone/APAP 10-325MG 1 EACH TAB PO PRN ×3 (05:03→17:43)
[2017-10-06] MEDS: IPRATROPIUM-ALBUTEROL 3 ML NEB INHALATION PRN (05:17)
[2017-10-06 06:39] LABS: Glucose,Whole Blood 183 mg/dL (75-99)
[2017-10-06] MEDS: INSULIN LISPRO (humaLOG) 300 UNIT/3 ML VIAL SQ SCH ×4 (06:55→21:14)
--- NOTE | 2017-10-06 06:57 | XR ---
EXAMINATION TYPE: XR chest 2V DATE OF EXAM: 10/06/2017 HISTORY: right middle lobe pneumonia, follow-up. REFERENCE: Previous study dated 10/05/2017. FINDINGS: The lungs are overinflated. There continues to be a right upper lobe infiltrate. There is a stable, 1.5 cm right upper lobe pulmonary nodule. The heart is mildly prominent. IMPRESSION: 1. COPD. 2. MILD CARDIOMEGALY. 3. SOLITARY RIGHT UPPER LOBE PULMONARY NODULE. 4. RIGHT UPPER LOBE PNEUMONIA. 5. PROMINENCE OF THE RIGHT HILUM. I COULD NOT EXCLUDE AN UNDERLYING MASS LESION.
[2017-10-06 07:16] LABS: CH 29.3; CHCM 31.4; HCT 36.5 % (34.0-46.0); HDW 2.65; HGB 11.4 gm/dL (11.4-16.0); Hypochromasia Slight; Immature Gran Flag Moderate; MCH 29.3 pg (25.0-35.0); MCHC 31.3 g/dL (31.0-37.0); MCV 93.7 fL (80.0-100.0); Mean Platelet Volume 6.6; RBC 3.89 m/uL (3.80-5.40); RDW 13.3 % (11.5-15.5); WBC (Perox) 7.35
[2017-10-06 07:18] LABS: Prothrombin Time 53.7 sec (9.0-12.0)
[2017-10-06 07:22] LABS: Anion Gap 8 mmol/L; Blood Urea Nitrogen 42 mg/dL (7-17); Calcium 9.4 mg/dL (8.4-10.2); Carbon Dioxide 29 mmol/L (22-30); Chloride 103 mmol/L (98-107); Glucose 201 mg/dL (74-99); Magnesium 1.8 mg/dL (1.6-2.3); Non-African American GFR(MDRD) >60 (>60 ml/min/1.73 sqM); Potassium 4.7 mmol/L (3.5-5.1); Sodium 140 mmol/L (137-145)
[2017-10-06 07:24] LABS: INR 5.4 (<1.2)
[2017-10-06 07:36] LABS: Add Differential Manual Differential
[2017-10-06 07:39] LABS: Band Neutrophils % 1 %; Metamyelocytes % 3 %; Nucleated Red Blood Cells 1 /100 WBC (0-0); Polychromasia Present; Total Cells Counted 200; WBC 7.3 k/uL (3.8-10.6)
[2017-10-06] MEDS: IPRATROPIUM-ALBUTEROL 3 ML NEB INHALATION SCH ×4 (08:09→20:42)
[2017-10-06] MEDS: SYMBICORT 160-4.5 MCG INHALER INHALATION SCH ×2 (08:09→20:42)
[2017-10-06] MEDS: methylPREDNISolone SOD SUCCI 40 MG/ML 1 ML VIAL IV SCH (08:39)
[2017-10-06] MEDS: DILTIAZEM ORAL 30 MG TAB PO SCH ×3 (08:39→21:14)
[2017-10-06] MEDS: VALSARTAN 160 MG TAB PO SCH (08:40)
[2017-10-06] MEDS: FUROSEMIDE 40 MG TAB PO SCH (08:40)
[2017-10-06] MEDS: AZITHROMYCIN 500 MG TAB PO SCH (08:40)
[2017-10-06] MEDS ORDERED: PHYTONADIONE 2 MG in SODIUM CHLORIDE 0.9% 50 ML IVPB STA (11:50)
[2017-10-06 11:55] LABS: Glucose,Whole Blood 158 mg/dL (75-99)
[2017-10-06] MEDS: SODIUM CHLORIDE 0.9% 1,000 ML IV SCH (12:05)
--- NOTE | 2017-10-06 13:00 | P.PN ---
Subjective Progress Note Date: 10/06/17 This is a pleasant 62-year-old female patient known history of advanced oxygen- dependent COPD was admitted on a combination of Dulera and Spiriva on an outpatient basis. The patient was in the hospital back in July where she was diagnosed having pulmonary embolism and she was discharged home on Coumadin. Around 2 days ago the patient started having increased cough and congestion and she subsequently started having chills and fever with a temperature of 102. She presented to [facility] where she was found to have large consolidation of the right lung and subsequent CAT scan of the chest showed consolidation of the right upper lobe and the right middle lobe. The patient also has calcified granuloma and mediastinal lymph node calcification. No evidence of any pleural effusion. The patient was therapeutic on Coumadin with an INR of 2.1. No travel history. No sick contacts. No previous history of MRSA exposure. Currently she is on a combination of Rocephin and Zithromax. Sputum Gram stain and cultures still pending for now. Blood cultures of been sent and the results are still pending. Meanwhile the patient is on oxygen at 3 L/m nasal cannula and his saturations around 96%. She is slightly tachycardic with a heart rate between 100-120 and she is slightly tachypneic. No nausea. No vomiting. No change in mental status and this point. One is minimally elevated at 0.3. ProBNP level is at 7550. Influenza screen was negative. White cell count was 23.4. On 10/03/2017 I'm seeing this patient for a follow-up. The patient is being treated for a right middle lobe pneumonia. INR is therapeutic at 2.7. White cell count is elevated at 19.1. Chest x-ray shows some slight improvement in the right middle lobe pulmonary infiltrates. Patient clinically is slightly improved compared to yesterday. She continues to have a congested cough. Unable to bring up much of sputum. More successful and collecting a sputum sample is showing gradual gram-positive cocci in pairs. No hemoptysis at this point. No pleurisy. No change in mental status. No nausea vomiting. No hemodynamic instability. 10/04/2017 the patient is being seen for a follow-up. The patient is feeling well. The patient has no specific complaints. Her INR today is therapeutic at 2.9. She is still on a combination of Rocephin and Zithromax. Chest x-ray shows improvement in the right mid lobe pulmonary infiltrate and the patient is afebrile hemodynamically stable and she is responding to the treatment. She is feeling better. We'll continue same antibiotic coverage. The final sputum Gram stain and culture has not resulted. The blood cultures of been all negative. The patient is seen again today 10/05/2017 in follow-up on the selective care unit. She is awake and alert in no acute distress. She is breathing better today as compared to yesterday. Not quite back to her baseline. Her chest x- ray today was reviewed. Compared to admission she is continuing to clear in the right upper lobe infiltrate. She remains afebrile. Maintaining good O2 saturations in the mid 90s on 3 L/m per nasal cannula. No leukocytosis. Her INR is elevated at 4.7. On 10/06/2017 the patient is stable. She is a bit concerned about her ongoing rise and INR. Note that the patient has not been given Coumadin and this probably interaction along with antibiotic treatment and the patient is receiving. Noted the patient developed an extensive right lung consolidation which is improving and today's chest x-ray. There is right hilar prominence and a follow-up CAT scan will be needed at a later stage to make sure there is no mass within the right perihilar area. Clinically is improving. The patient is currently on Zithromax. The patient will need also to be taken off the IV Solu Medrol. The patient is not having any hemoptysis or any bleeding complications. Objective - Vital Signs Vital signs: Vital Signs Temp 97 F L 10/06/17 08:00 Pulse 93 10/06/17 12:00 Resp 19 10/06/17 12:00 BP 146/62 10/06/17 12:00 Pulse Ox 95 10/06/17 12:00 Intake & Output 10/05/17 10/06/17 10/06/17 19:59 06:59 18:59 Intake Total 380 Output Total Balance 380 Weight Intake: IV 0.9% NS FLUSH Oral 380 Output: Stool Other: Voiding Method - Exam Gen. appearance the patient is calm, not in acute respiratory distress. Slightly tachycardic no significant tachypnea this point. She is not using excessive muscle breathing.Head exam was generally normal. There was no scleral icterus or corneal arcus. Mucous membranes were moist. Neck is supple and the patient is no JVDs no goiter or neck masses. She has or mental conditions. Lung sounds are diminished and the patient is having some limited crackles over the right lateral and anterior chest area. Scattered expiratory wheezes. Otherwise no other abnormalities are noted.Cardiac exam revealed the PMI to be normally situated and sized. The rhythm was regular and no extrasystoles were noted during several minutes of auscultation. The first and second heart sounds were normal and physiologic splitting of the second heart sound was noted. There were no murmurs, rubs, clicks, or gallops.Abdominal exam revealed normal bowel sounds. The abdomen was soft, non-tender, and without masses, organomegaly , or appreciable enlargement of the abdominal aorta.Examination of the extremities revealed easily palpable radial, femoral and pedal pulses. There was no cyanosis, clubbing or edema.Examination of the skin revealed no evidence of significant rashes, suspicious appearing nevi or other concerning lesions. Neurologically the patient is awake and alert and there is no focal neurological deficit at this point - Labs CBC & Chem 7: 10/06/17 06:17 10/06/17 06:17 Labs: Abnormal Lab Results - Last 24 Hours (Table) 10/05/17 10/05/17 10/06/17 Range/Units 16:33 20:55 06:17 Metamyelocytes # (Man) (0) k/uL Nucleated RBCs (0-0) /100 WBC PT 53.7 H (9.0-12.0) sec INR 5.4 H* (<1.2) BUN (7-17) mg/dL Glucose (74-99) mg/dL POC Glucose (mg/dL) 211 H 260 H (75-99) mg/dL 10/06/17 10/06/17 10/06/17 Range/Units 06:17 06:17 06:30 Metamyelocytes # (Man) 0.22 H (0) k/uL Nucleated RBCs 1 H (0-0) /100 WBC PT (9.0-12.0) sec INR (<1.2) BUN 42 H (7-17) mg/dL Glucose 201 H (74-99) mg/dL POC Glucose (mg/dL) 183 H (75-99) mg/dL 10/06/17 Range/Units 11:52 Metamyelocytes # (Man) (0) k/uL Nucleated RBCs (0-0) /100 WBC PT (9.0-12.0) sec INR (<1.2) BUN (7-17) mg/dL Glucose (74-99) mg/dL POC Glucose (mg/dL) 158 H (75-99) mg/dL Microbiology - Last 24 Hours (Table) 10/01/17 18:12 Blood Culture - Preliminary Blood No Growth after 96 hours 10/01/17 17:13 Blood Culture - Preliminary Blood No Growth after 96 hours Assessment and Plan Plan: Assessment 1 acute bilateral lobar pneumonia involving the right lung, right middle lobe/ right upper lobe. The patient has dense consolidation typical of an acute pneumonic process. On 10/03/2017 the patient has gram-positive cocci in pairs in the sputum sample. Chest x-ray showed limited improvement in the right midlung consolidation. Clinically stable. On 10/04/2017 the patient clinically is feeling better. The chest x-rays also showing improvement in the right middle lobe pulmonary infiltration. Final cultures have not been resulted yet. He was, the acute leukocytosis improved and the patient's white count has dropped from 23 down to 11.5. On 10/05/2017 patient is improving both clinically and radiographically. She is afebrile. No leukocytosis. On 10/06/2017 there is further improvement in the chest x-ray in regards to the right middle lobe pulmonary infiltrates/pneumonia. Nevertheless, the patient continues to have right hilar prominence and he is known to have a granuloma in the right upper lobe and some mediastinal lymph node calcifications and outpatient follow-up CAT scan will be done to rule out any mass or malignancy within the right hilar area. 2 acute febrile illness secondary to pneumonia , currently afebrile 3 acute leukocytosis secondary to above, recovered. 4 recent hospitalization for pulmonary embolism and the patient has been on Coumadin, currently supratherapeutic 5 advanced COPD, oxygen dependent, maintained on a combination of Spiriva and alert on outpatient basis 6 chronic hypoxic respiratory failure 7 history of DVT 8 degenerative arthritis Plan Continue antibiotics. No Coumadin for today. Give the patient 2 mg of vitamin K IV. Repeat PT/INR. Proceed with stopping the Solu-Medrol and putting the patient a prednisone burst taper starting with 30 mg by mouth daily. Continue bronchodilators. We'll continue to follow. The sputum analysis came back consistent with normal chintan. Outpatient CAT scan regarding the right hilar prominence. We'll continue to follow.
--- NOTE | 2017-10-06 13:56 | P.PN ---
Subjective Patient was admitted for COPD exacerbation and the right upper lobe pneumonia, looks better compared to yesterday but not feeling better is still coughing shot of breath. oct 16 patient is at her baseline but wanted to stay 1 more day and had INR is elevated because of which will hold her discharged today patient doesn't want to go to subacute rehabitation. Constitutional: Denied any fatigue denied any fever. Cardio vascular: denied any chest pain, palpitations Gastrointestinal denied any nausea vomiting Pulmonary: As mentioned in HPI Neurologic denied any new focal deficits Objective - Vital Signs Vital signs: Vital Signs Temp 97 F L 10/06/17 08:00 Pulse 93 10/06/17 12:00 Resp 19 10/06/17 12:00 BP 146/62 10/06/17 12:00 Pulse Ox 95 10/06/17 12:00 Intake & Output 10/05/17 10/06/17 10/06/17 19:59 06:59 18:59 Intake Total 380 Output Total Balance 380 Weight Intake: IV 0.9% NS FLUSH Oral 380 Output: Stool Other: Voiding Method - Exam GENERAL: The patient is alert and oriented x3, not in any acute distress. Well developed, well nourished. HEENT: Pupils are round and equally reacting to light. EOMI. No scleral icterus. No conjunctival pallor. Normocephalic, atraumatic. No pharyngeal erythema. No thyromegaly. CARDIOVASCULAR: S1 and S2 present. No murmurs, rubs, or gallops. PULMONARY: Expiratory wheezing and crackles in the right upper lung [place] possible bronchophony and egophony ABDOMEN: Soft, nontender, nondistended, normoactive bowel sounds. No palpable organomegaly. MUSCULOSKELETAL: No joint swelling or deformity. EXTREMITIES: No cyanosis, clubbing, or pedal edema. NEUROLOGICAL: Gross neurological examination did not reveal any focal deficits. SKIN: No rashes. - Labs CBC & Chem 7: 10/06/17 06:17 10/06/17 06:17 Labs: Abnormal Lab Results - Last 24 Hours (Table) 10/05/17 10/05/17 10/06/17 Range/Units 16:33 20:55 06:17 Metamyelocytes # (Man) (0) k/uL Nucleated RBCs (0-0) /100 WBC PT 53.7 H (9.0-12.0) sec INR 5.4 H* (<1.2) BUN (7-17) mg/dL Glucose (74-99) mg/dL POC Glucose (mg/dL) 211 H 260 H (75-99) mg/dL 10/06/17 10/06/17 10/06/17 Range/Units 06:17 06:17 06:30 Metamyelocytes # (Man) 0.22 H (0) k/uL Nucleated RBCs 1 H (0-0) /100 WBC PT (9.0-12.0) sec INR (<1.2) BUN 42 H (7-17) mg/dL Glucose 201 H (74-99) mg/dL POC Glucose (mg/dL) 183 H (75-99) mg/dL 10/06/17 Range/Units 11:52 Metamyelocytes # (Man) (0) k/uL Nucleated RBCs (0-0) /100 WBC PT (9.0-12.0) sec INR (<1.2) BUN (7-17) mg/dL Glucose (74-99) mg/dL POC Glucose (mg/dL) 158 H (75-99) mg/dL Microbiology - Last 24 Hours (Table) 10/01/17 18:12 Blood Culture - Preliminary Blood No Growth after 96 hours 10/01/17 17:13 Blood Culture - Preliminary Blood No Growth after 96 hours Assessment and Plan Plan: #1 sepsis: Secondary to right middle lobe pneumonia patient is also on COPD exacerbation patient will be started on Rocephin and azithromycin for come in today quite pneumonia. improving #2 acute hypoxic respiratory failure and hypercapnic respiratory failure secondary to pneumonia and COPD exacerbation. no wheezing today #3 COPD exacerbation patient was started on systemic steroids inhalational treatments. #4 chest pain floor: Pleuritic in nature secondary to pneumonia. #5 elevated troponin: Secondary to sepsis #6 hypertension #7 history of PE for which patient is on Coumadin therapy and Coumadin patient was started back on Coumadin and repeat INR tomorrow. #8 continued tobacco use: Counseling was provided #9 supratherapeutic INR: Patient received vitamin K holding Coumadin
[2017-10-06 16:51] LABS: Glucose,Whole Blood 151 mg/dL (75-99)
[2017-10-06 20:50] LABS: Glucose,Whole Blood 186 mg/dL (75-99)
[2017-10-07] MEDS: HYDROcodone/APAP 10-325MG 1 EACH TAB PO PRN ×3 (00:41→14:25)
[2017-10-07] MEDS: IPRATROPIUM-ALBUTEROL 3 ML NEB INHALATION PRN (02:37)
[2017-10-07 06:58] LABS: Basophils # (A) 0.1 k/uL (0-0.2); Basophils % (A) 1 %; CH 29.1; CHCM 31.1; Eosinophils % (A) 0 %; HCT 34.7 % (34.0-46.0); HDW 2.64; HGB 10.6 gm/dL (11.4-16.0); Hypochromasia Slight; Luc # (Auto) 0.15; Luc % (Auto) 2; Lymphocytes # (A) 1.4 k/uL (1.0-4.8); Lymphocytes % (A) 18 %; MCH 28.8 pg (25.0-35.0); MCHC 30.5 g/dL (31.0-37.0); MCV 94.1 fL (80.0-100.0); Mean Platelet Volume 6.6; Monocytes # (A) 0.7 k/uL (0-1.0); Monocytes % (A) 9 %; Neutrophils # (A) 5.3 k/uL (1.3-7.7); Neutrophils % (A) 70 %; RBC 3.68 m/uL (3.80-5.40); RDW 13.3 % (11.5-15.5); WBC 7.6 k/uL (3.8-10.6); WBC (Perox) 7.73
[2017-10-07 07:02] LABS: INR 2.5 (<1.2); Prothrombin Time 23.9 sec (9.0-12.0)
--- NOTE | 2017-10-07 07:18 | XR ---
EXAMINATION TYPE: XR chest 2V DATE OF EXAM: 10/07/2017 COMPARISON: 10/06/2017 HISTORY: Shortness of breath TECHNIQUE: Frontal and lateral views of the chest are obtained. FINDINGS: Scattered senescent parenchymal changes noted. Hyperinflation compatible with COPD. There is persistent right perihilar and right middle lobe infiltrate. Heart size is stable. Solitary right upper lobe pulmonary nodule. Right hilar prominence unchanged Mediastinal structures are stable and grossly unremarkable. No evidence for hilar prominence. Degenerative changes dorsal spine. IMPRESSION: 1. Stable chest. Continued follow-up advised.
[2017-10-07 07:40] LABS: Anion Gap 5 mmol/L; Blood Urea Nitrogen 45 mg/dL (7-17); Calcium 8.6 mg/dL (8.4-10.2); Carbon Dioxide 27 mmol/L (22-30); Chloride 106 mmol/L (98-107); Glucose 122 mg/dL (74-99); Magnesium 1.8 mg/dL (1.6-2.3); Non-African American GFR(MDRD) >60 (>60 ml/min/1.73 sqM); Potassium 4.7 mmol/L (3.5-5.1); Sodium 138 mmol/L (137-145)
[2017-10-07 07:55] LABS: Glucose,Whole Blood 107 mg/dL (75-99)
[2017-10-07] MEDS: DILTIAZEM ORAL 30 MG TAB PO SCH (07:59)
[2017-10-07] MEDS: VALSARTAN 160 MG TAB PO SCH (07:59)
[2017-10-07] MEDS: AZITHROMYCIN 500 MG TAB PO SCH (08:00)
[2017-10-07] MEDS: FUROSEMIDE 40 MG TAB PO SCH (08:02)
[2017-10-07] MEDS: INSULIN LISPRO (humaLOG) 300 UNIT/3 ML VIAL SQ SCH ×2 (08:04→11:17)
[2017-10-07 08:07] VITALS: BP 130/63; RESP 18; TEMP 98.9
[2017-10-07] MEDS: IPRATROPIUM-ALBUTEROL 3 ML NEB INHALATION SCH ×3 (08:23→15:21)
[2017-10-07] MEDS: SYMBICORT 160-4.5 MCG INHALER INHALATION SCH (08:23)
[2017-10-07] MEDS ORDERED: predniSONE 10 MG TAB PO SCH (09:00)
[2017-10-07 11:18] LABS: Glucose,Whole Blood 125 mg/dL (75-99)
--- NOTE | 2017-10-07 11:34 | P.DS ---
Providers Date of admission: 10/01/17 15:37 Attending physician: Lynette Langford Consults: 10/01/17 16:02 Consult Physician Routine Consulting Provider: Cassy Martínez Consult Reason/Comments: Pneumonia, COPD Do you want consulting provider notified?: Yes Primary care physician: Trevon Rand Hospital Course: Patient was admitted for COPD exacerbation and the right upper lobe pneumonia, looks better compared to yesterday but not feeling better is still coughing shot of breath. oct Patient is clinically doing well, will be discharged today INR is 2.5 therapeutic and I will cut down the dose of Coumadin to 2.5 mg as patient is on prednisone prednisone and tracks with Coumadin. PHYSICAL EXAMINATION: GENERAL: The patient is alert and oriented x3, not in any acute distress. Well developed, well nourished. HEENT: Pupils are round and equally reacting to light. EOMI. No scleral icterus. No conjunctival pallor. Normocephalic, atraumatic. No pharyngeal erythema. No thyromegaly. CARDIOVASCULAR: S1 and S2 present. No murmurs, rubs, or gallops. PULMONARY: Chest is clear to auscultation, no wheezing or crackles. ABDOMEN: Soft, nontender, nondistended, normoactive bowel sounds. No palpable organomegaly. MUSCULOSKELETAL: No joint swelling or deformity. EXTREMITIES: No cyanosis, clubbing, or pedal edema. NEUROLOGICAL: Gross neurological examination did not reveal any focal deficits. SKIN: No rashes. #1 sepsis: Secondary to right middle lobe pneumonia patient is also on COPD exacerbation patient will be discharged on azithromycin, received Rocephin and azithromycin here #2 acute hypoxic respiratory failure and hypercapnic respiratory failure secondary to pneumonia and COPD exacerbation. no wheezing today #3 COPD exacerbation patient was started on systemic steroids inhalational treatments. #4 chest pain floor: Pleuritic in nature secondary to pneumonia. #5 elevated troponin: Secondary to sepsis #6 hypertension #7 history of PE for which patient is on Coumadin therapy and Coumadin patient was started back on Coumadin and repeat INR tomorrow. #8 continued tobacco use: Counseling was provided #9 supratherapeutic INR: INR is therapy get this time 10 atrial fibrillation presently rate controlled patient is on Coumadin which will be continued Patient Condition at Discharge: Serious Plan - Discharge Summary Discharge Rx Participant: No New Discharge Prescriptions: New Azithromycin [Zithromax Tri-Javier] 500 mg PO DAILY #3 tab Diltiazem Oral [Cardizem*] 90 mg PO TID #90 tab predniSONE 10 mg PO DAILY #30 tab Continue Ipratropium [place] [Atrovent Hfa] 2 puff INHALATION RT-QID Albuterol Inhaler [Ventolin Hfa Inhaler] 2 puff INHALATION RT-Q6H PRN PRN Reason: Pain Valsartan [Diovan] 160 mg PO DAILY Tiotropium [place] [Spiriva] 1 cap INHALATION RT-DAILY Furosemide [Lasix] 40 mg PO DAILY HYDROcodone/APAP 10-325MG [[place] 10-325] 1 tab PO QID PRN PRN Reason: Pain Mometasone/Formoterol [Dulera 200 Mcg/5 Mcg Inhaler] 2 puff INHALATION RT-BID Changed Warfarin [Coumadin] 2.5 mg PO DAILY #0 Discontinued traMADol HCL [Ultram] 50 mg PO BID PRN PRN Reason: Pain Potassium Chloride [K-Tab ER] 10 meq PO DAILY Discharge Medication List Albuterol Inhaler [Ventolin Hfa Inhaler] 2 puff INHALATION RT-Q6H PRN 07/24/17 [ History] Furosemide [Lasix] 40 mg PO DAILY 07/24/17 [History] HYDROcodone/APAP 10-325MG [[place] 10-325] 1 tab PO QID PRN 07/24/17 [History] Ipratropium [place] [Atrovent Hfa] 2 puff INHALATION RT-QID 07/24/17 [History] Mometasone/Formoterol [Dulera 200 Mcg/5 Mcg Inhaler] 2 puff INHALATION RT-BID [History] Tiotropium [place] [Spiriva] 1 cap INHALATION RT-DAILY 07/24/17 [History] Valsartan [Diovan] 160 mg PO DAILY 07/24/17 [History] Azithromycin [Zithromax Tri-Javier] 500 mg PO DAILY #3 tab 10/07/17 [Rx] Diltiazem Oral [Cardizem*] 90 mg PO TID #90 tab 10/07/17 [Rx] Warfarin [Coumadin] 2.5 mg PO DAILY #0 10/07/17 [Rx] predniSONE 10 mg PO DAILY #30 tab 10/07/17 [Rx] Follow up Appointment(s)/Referral(s): Trevon Rand MD [Primary Care Provider] - 3 Days Ambulatory/Diagnostic Orders: Prothrombin Time INR [LAB.AMB] Time Frame: 3 Days, Location: Determined By Patient Activity/Diet/Wound Care/Special Instructions: [facility] home care [phone] Discharge Disposition: HOME WITH HOME HEALTH SERVICES
--- NOTE | 2017-10-07 12:36 | P.PN ---
Subjective Progress Note Date: 10/07/17 Principal diagnosis: Acute bilateral lobar pneumonia involving the right lung, right middle lobe/ right upper lobe. This is a pleasant 62-year-old female patient known history of advanced oxygen- dependent COPD was admitted on a combination of Dulera and Spiriva on an outpatient basis. The patient was in the hospital back in July where she was diagnosed having pulmonary embolism and she was discharged home on Coumadin. Around 2 days ago the patient started having increased cough and congestion and she subsequently started having chills and fever with a temperature of 102. She presented to [facility] where she was found to have large consolidation of the right lung and subsequent CAT scan of the chest showed consolidation of the right upper lobe and the right middle lobe. The patient also has calcified granuloma and mediastinal lymph node calcification. No evidence of any pleural effusion. The patient was therapeutic on Coumadin with an INR of 2.1. No travel history. No sick contacts. No previous history of MRSA exposure. Currently she is on a combination of Rocephin and Zithromax. Sputum Gram stain and cultures still pending for now. Blood cultures of been sent and the results are still pending. Meanwhile the patient is on oxygen at 3 L/m nasal cannula and his saturations around 96%. She is slightly tachycardic with a heart rate between 100-120 and she is slightly tachypneic. No nausea. No vomiting. No change in mental status and this point. One is minimally elevated at 0.3. ProBNP level is at 7550. Influenza screen was negative. White cell count was 23.4. On 10/03/2017 I'm seeing this patient for a follow-up. The patient is being treated for a right middle lobe pneumonia. INR is therapeutic at 2.7. White cell count is elevated at 19.1. Chest x-ray shows some slight improvement in the right middle lobe pulmonary infiltrates. Patient clinically is slightly improved compared to yesterday. She continues to have a congested cough. Unable to bring up much of sputum. More successful and collecting a sputum sample is showing gradual gram-positive cocci in pairs. No hemoptysis at this point. No pleurisy. No change in mental status. No nausea vomiting. No hemodynamic instability. 10/04/2017 the patient is being seen for a follow-up. The patient is feeling well. The patient has no specific complaints. Her INR today is therapeutic at 2.9. She is still on a combination of Rocephin and Zithromax. Chest x-ray shows improvement in the right mid lobe pulmonary infiltrate and the patient is afebrile hemodynamically stable and she is responding to the treatment. She is feeling better. We'll continue same antibiotic coverage. The final sputum Gram stain and culture has not resulted. The blood cultures of been all negative. The patient is seen again today 10/05/2017 in follow-up on the selective care unit. She is awake and alert in no acute distress. She is breathing better today as compared to yesterday. Not quite back to her baseline. Her chest x- ray today was reviewed. Compared to admission she is continuing to clear in the right upper lobe infiltrate. She remains afebrile. Maintaining good O2 saturations in the mid 90s on 3 L/m per nasal cannula. No leukocytosis. Her INR is elevated at 4.7. On 10/06/2017 the patient is stable. She is a bit concerned about her ongoing rise and INR. Note that the patient has not been given Coumadin and this probably interaction along with antibiotic treatment and the patient is receiving. Noted the patient developed an extensive right lung consolidation which is improving and today's chest x-ray. There is right hilar prominence and a follow-up CAT scan will be needed at a later stage to make sure there is no mass within the right perihilar area. Clinically is improving. The patient is currently on Zithromax. The patient will need also to be taken off the IV Solu Medrol. The patient is not having any hemoptysis or any bleeding complications. On 10/07/2017 patient is seen in follow-up. No worsening chest congestion or dyspnea. She is sitting up on the edge of the bed in no acute distress. Continues on 3 L per nasal cannula with O2 sat at 98%, respirations are even and nonlabored. She has had no febrile episodes since admission. Chest x-ray from 10/07/2017 has been reviewed by Dr. Denton showed persistent right perihilar and right middle lobe infiltrate, stable chest. INR days down to 2.5 , patient has had no signs of bleeding. Patient is stable to go home from pulmonary standpoint. She has follow-up appointment Dr. Almendarez on 10/30/2017 and 9:15 in the morning. Objective - Vital Signs Vital signs: Vital Signs Temp 98.9 F 10/07/17 07:00 Pulse 90 10/07/17 11:57 Resp 18 10/07/17 08:00 BP 130/63 10/07/17 07:00 Pulse Ox 98 10/07/17 07:00 Intake & Output 10/06/17 10/07/17 10/07/17 18:59 06:59 18:59 Intake Total 560 200 Balance 560 200 Intake: Oral 560 200 Other: Voiding Method Toilet Toilet # Voids 4 1 - Exam GENERAL EXAM: Alert, active, comfortable in no apparent distress. HEAD: Normocephalic. EYES: Normal reaction of pupils, equal size. NOSE: Clear with pink turbinates. THROAT: No erythema or exudates. NECK: No masses, no JVD. CHEST: No chest wall deformity. LUNGS: Limited crackles over the right lateral and anterior chest area. No wheezes CVS: S1 and S2 normal with no audible mumurs, regular rhythm. ABDOMEN: No hepatosplenomegaly, normal bowel sounds, no guarding or rigidity. SPINE: No scoliosis or deformity SKIN: No rashes CENTRAL NERVOUS SYSTEM: No focal deficits, tone is normal in all 4 extremities. - Labs CBC & Chem 7: 10/07/17 06:18 10/07/17 06:18 Labs: Abnormal Lab Results - Last 24 Hours (Table) 10/06/17 10/06/17 10/07/17 Range/Units 16:45 20:48 06:18 RBC (3.80-5.40) m/uL Hgb (11.4-16.0) gm/dL MCHC (31.0-37.0) g/dL PT 23.9 H (9.0-12.0) sec INR 2.5 H (<1.2) BUN (7-17) mg/dL Glucose (74-99) mg/dL POC Glucose (mg/dL) 151 H 186 H (75-99) mg/dL 10/07/17 10/07/17 10/07/17 Range/Units 06:18 06:18 07:52 RBC 3.68 L (3.80-5.40) m/uL Hgb 10.6 L (11.4-16.0) gm/dL MCHC 30.5 L (31.0-37.0) g/dL PT (9.0-12.0) sec INR (<1.2) BUN 45 H (7-17) mg/dL Glucose 122 H (74-99) mg/dL POC Glucose (mg/dL) 107 H (75-99) mg/dL 10/07/17 Range/Units 11:16 RBC (3.80-5.40) m/uL Hgb (11.4-16.0) gm/dL MCHC (31.0-37.0) g/dL PT (9.0-12.0) sec INR (<1.2) BUN (7-17) mg/dL Glucose (74-99) mg/dL POC Glucose (mg/dL) 125 H (75-99) mg/dL Microbiology - Last 24 Hours (Table) 10/01/17 18:12 Blood Culture - Preliminary Blood No Growth after 120 hours 10/01/17 17:13 Blood Culture - Preliminary Blood No Growth after 120 hours Assessment and Plan Plan: Plan: Assessment 1 acute bilateral lobar pneumonia involving the right lung, right middle lobe/ right upper lobe. The patient has dense consolidation typical of an acute pneumonic process. On 10/03/2017 the patient has gram-positive cocci in pairs in the sputum sample. Chest x-ray showed limited improvement in the right midlung consolidation. Clinically stable. On 10/04/2017 the patient clinically is feeling better. The chest x-rays also showing improvement in the right middle lobe pulmonary infiltration. Final cultures have not been resulted yet. He was, the acute leukocytosis improved and the patient's white count has dropped from 23 down to 11.5. On 10/05/2017 patient is improving both clinically and radiographically. She is afebrile. No leukocytosis. On 10/06/2017 there is further improvement in the chest x-ray in regards to the right middle lobe pulmonary infiltrates/pneumonia. Nevertheless, the patient continues to have right hilar prominence and he is known to have a granuloma in the right upper lobe and some mediastinal lymph node calcifications and outpatient follow-up CAT scan will be done to rule out any mass or malignancy within the right hilar area. On 10/07/2017 chest x-ray was read by Dr. Denton and showed persistent right perihilar and right middle lobe infiltrate, stable findings. 2 acute febrile illness secondary to pneumonia , currently afebrile 3 acute leukocytosis secondary to above, recovered. 4 recent hospitalization for pulmonary embolism and the patient has been on Coumadin, currently supratherapeutic 5 advanced COPD, oxygen dependent, maintained on a combination of Spiriva and alert on outpatient basis 6 chronic hypoxic respiratory failure 7 history of DVT 8 degenerative arthritis Plan Patient has made significant improvement in her respiratory status, no worsening dyspnea, oxygenation is stable. No fevers, no chills, no night sweats , no hemoptysis. INR is down to 2.5 today, she's had no signs of bleeding. She is stable for discharge from pulmonary standpoint, follow-up with Dr. Almendarez any office in 1-2 weeks. I performed a history & physical examination of the patient and discussed their management with my nurse practitioner, Leena Booker. I reviewed the nurse practitioner's note and agree with the documented findings and plan of care. Lung sounds are positive for some limited crackles over right lateral and anterior chest area. No wheezes, no rhonchi. Stable for discharge. I attest the documentation by the nurse practitioner Time with Patient: Less than 30
[2017-10-07 15:32] VITALS: PULSE 91
== END 2017-10-07 16:26 | disposition home health service (06) | DRG 871 ==
LOC: EC 14:27 → 6SEL 15:37 → 5MS5E 10-06 22:31
PROVIDERS: ADMIT Internal Medicine; ATTEND Internal Medicine
DX: A41.9 Sepsis, unspecified organism (principal); J96.21 Acute and chronic respiratory failure with hypoxia; J18.9 Pneumonia, unspecified organism; J96.22 Acute and chronic respiratory failure with hypercapnia; J44.0 Chronic obstructive pulmonary disease with (acute) lower respiratory infection; J44.1 Chronic obstructive pulmonary disease with (acute) exacerbation; I27.20 Pulmonary hypertension, unspecified; I08.1 Rheumatic disorders of both mitral and tricuspid valves; I10 Essential (primary) hypertension; F41.9 Anxiety disorder, unspecified; I25.10 Atherosclerotic heart disease of native coronary artery without angina pectoris; M19.90 Unspecified osteoarthritis, unspecified site; R79.1 Abnormal coagulation profile; R74.8 Abnormal levels of other serum enzymes; R07.89 Other chest pain; Z79.01 Long term (current) use of anticoagulants; Z79.899 Other long term (current) drug therapy; Z86.711 Personal history of pulmonary embolism; Z86.718 Personal history of other venous thrombosis and embolism; Z99.81 Dependence on supplemental oxygen; Z88.8 Allergy status to other drugs, medicaments and biological substances; Z86.14 Personal history of Methicillin resistant Staphylococcus aureus infection; Z87.891 Personal history of nicotine dependence
CPT/HCPCS: 71010; 71020; 80048; 83735; 83880; 84484; 85025; 85027; 85610; 87040; 87070; 87205; 87449; 87502; 93005; 93306; 94640; 94760; 96374; 99291

== ENCOUNTER 2018-09-02 16:47 | Inpatient (IN) | payer MEDICARE, OTHER ==
[2018-09-02] MEDS ORDERED: NALOXONE 0.4 MG/ML 1 ML VIAL IV PRN (17:45)
[2018-09-02] MEDS ORDERED: ACETAMINOPHEN TAB 325 MG TAB PO PRN (17:45)
[2018-09-02] MEDS ORDERED: VANCOMYCIN IV PER PHARMACY 1 EACH MISC MISCELLANE PRN (17:47)
--- NOTE | 2018-09-02 17:48 | ED ---
General Adult HPI - General Chief complaint: Recheck/Abnormal Lab/Rx Stated complaint: Cellulitis Time Seen by Provider: 09/02/18 16:55 Source: patient, RN notes reviewed, old records reviewed (Chart from [place] reviewed including physician report and orders and labs and chest x-ray.) Mode of arrival: EMS Limitations: no limitations - History of Present Illness Initial comments: Patient is a pleasant 63-year-old female presenting to the emergency department as a transfer from [facility]. Patient was diagnosed with cellulitis and sepsis there. Patient did have white blood cell count of 29, lactic acid 2.1, vancomycin and Zosyn were given. Patient did receive 2 L fluid bolus there is was 250 mL by EMS. Patient states she has had history of cellulitis in this area previously. Patient states onset this time was just 2 days ago. No fevers. - Related Data Home Medications Medication Instructions Recorded Confirmed Albuterol Inhaler [Ventolin Hfa 2 puff INHALATION RT-Q6H PRN 07/24/17 09/02/18 Inhaler] Furosemide [Lasix] 40 mg PO BID 07/24/17 09/02/18 HYDROcodone/APAP 10-325MG [[place] 1 tab PO QID PRN 07/24/17 09/02/18 10-325] Ipratropium [place] [Atrovent Hfa] 2 puff INHALATION RT-QID 07/24/17 09/02/18 Mometasone/Formoterol [Dulera 200 2 puff INHALATION RT-BID 07/24/17 09/02/18 Mcg/5 Mcg Inhaler] Tiotropium [place] [Spiriva] 1 cap INHALATION RT-DAILY 07/24/17 09/02/18 Valsartan [Diovan] 160 mg PO DAILY 07/24/17 09/02/18 Hydrochlorothiazide 12.5 mg PO DAILY 09/02/18 09/02/18 Metoprolol Succinate [Toprol XL] 25 mg PO DAILY 09/02/18 09/02/18 Warfarin Sodium 7.5 mg PO SPRAGUE 09/02/18 09/02/18 Warfarin [Coumadin] 2.5 mg PO MOTUWETHFRSA 09/02/18 09/02/18 Previous Rx's Medication Instructions Recorded predniSONE 10 mg PO DAILY #30 tab 10/07/17 Allergies Allergy/AdvReac Type Severity Reaction Status Date / Time fluticasone Allergy Anaphylaxis Verified 09/02/18 17:06 [From Advair Diskus] salmeterol Allergy Anaphylaxis Verified 09/02/18 17:06 [From Advair Diskus] Review of Systems ROS Statement: Those systems with pertinent positive or pertinent negative responses have been documented in the HPI. ROS Other: All systems not noted in ROS Statement are negative. Constitutional: Denies: fever Eyes: Denies: eye pain ENT: Denies: ear pain Respiratory: Reports: cough (Chronic and unchanged). Denies: dyspnea Cardiovascular: Denies: chest pain Endocrine: Denies: fatigue Genitourinary: Denies: dysuria Musculoskeletal: Denies: back pain Skin: Reports: rash Neurological: Denies: weakness Past Medical History Past Medical History: COPD, Deep Vein Thrombosis (DVT), Musculoskeletal Disorder , Pneumonia, Pulmonary Embolus (PE) Additional Past Medical History / Comment(s): Advanced oxygen-dependent COPD, previous history of DVT, previous history of pulmonary embolism and the patient has been maintained on Coumadin, degenerative arthritis, chronic hypoxic respiratory failure on oxygen 3 L/m nasal cannula History of Any Multi-Drug Resistant Organisms: MRSA Date of last positivie culture/infection: 2014 MDRO Source:: WOUND ON ARM Past Surgical History: Adenoidectomy, Appendectomy, Bladder Surgery, Cholecystectomy, Tonsillectomy Past Anesthesia/Blood Transfusion Reactions: No Reported Reaction Past Psychological History: Anxiety Smoking Status: Former smoker - Past Family History Mother Family Medical History: COPD, Deep Vein Thrombosis (DVT) Additional Family Medical History / Comment(s): HEAVY SMOKER AND DRINKER Father Family Medical History: Renal Disease General Exam Limitations: no limitations General appearance: alert, in no apparent distress Head exam: Present: atraumatic Eye exam: Present: normal appearance, PERRL ENT exam: Present: normal oropharynx Neck exam: Present: normal inspection Respiratory exam: Present: rhonchi Cardiovascular Exam: Present: irregular rhythm GI/Abdominal exam: Present: soft. Absent: tenderness Extremities exam: Present: other (Left leg with tenderness and erythema from below the knee to the distal foot.) Neurological exam: Present: alert Psychiatric exam: Present: normal affect, normal mood Skin exam: Present: erythema Course Vital Signs 09/02/18 16:58 Pulse Rate 117 H Respiratory 16 Rate Blood Pressure 104/57 O2 Sat by Pulse 94 L Oximetry - Reevaluation(s) Reevaluation #1: 09/02/18 17:36 Patient did meet sepsis criteria prior to arrival. Patient did have lactic acid done at 2.1. This will be redrawn. Unclear if blood cultures were drawn. Antibiotics have been started. Patient did receive 2250 mL fluid bolus. Patient does have ideal body weight of 54.4 kg. Therefore patient did receive appropriate bolus. Patient was updated on plan. Dr. Larkin has been paged for admission. Disposition Clinical Impression: Cellulitis, Sepsis Disposition: ADMITTED IP TO THIS HOSP Is patient prescribed a controlled substance at d/c from ED?: No Referrals: Trevon Rand MD [Primary Care Provider] - 1-2 days Decision Time: 17:48
[2018-09-02] MEDS ORDERED: Acetaminophen-Codeine 300-30mg TAB PO PRN (17:50)
[2018-09-02] MEDS ORDERED: MAGNESIUM HYDROXIDE 2,400 MG/10 ML CUP PO PRN (17:50)
[2018-09-02] MEDS ORDERED: BISACODYL 10 MG SUPP RECTAL PRN (17:50)
[2018-09-02] MEDS ORDERED: CALCIUM CARBONATE 500 MG CHEWABLE PO PRN (17:50)
[2018-09-02] MEDS ORDERED: VANCOMYCIN 1,750 MG in SODIUM CHLORIDE 0.9% 500 ML 500 ML IVPB STA (17:52)
[2018-09-02] MEDS: SODIUM CHLORIDE 0.9% 1,000 ML IV SCH ×2 (18:38→22:57)
[2018-09-02] MEDS ORDERED: MOMETASONE INHALATION SCH (20:00)
[2018-09-02] MEDS ORDERED: FORMOTEROL INHALATION SCH (20:00)
[2018-09-02] MEDS: WARFARIN 2.5 MG TAB PO SCH (20:07)
[2018-09-02 21:00] LABS: Calcium 7.7 mg/dL (8.4-10.2); Potassium 4.8 mmol/L (3.5-5.1)
[2018-09-02] MEDS: DILTIAZEM 50 MG in SODIUM CHLORIDE 0.9% 40 ML IV SCH (21:52)
[2018-09-02] MEDS: HYDROcodone/APAP 10-325MG 1 EACH TAB PO PRN (22:49)
[2018-09-02] MEDS: FUROSEMIDE 40 MG TAB PO SCH (22:49)
[2018-09-02] MEDS: PIPERACILLIN-TAZOBACTAM 3.375 GM in DEXTROSE/WATER 1 50ML.BAG IVPB SCH (22:57)
[2018-09-02] MEDS ORDERED: IPRATROPIUM-ALBUTEROL 3 ML NEB INHALATION SCH (23:10)
[2018-09-03] MEDS: DILTIAZEM 50 MG in SODIUM CHLORIDE 0.9% 40 ML IV SCH ×2
[2018-09-03] MEDS ORDERED: NON-FORMULARY DRUG (Tiotropium Bromide [Spiriva] 1 CAP) INHALATION SCH ×4 (05:35→08:00)
[2018-09-03] MEDS: IPRATROPIUM-ALBUTEROL 3 ML NEB INHALATION PRN ×3 (05:37→15:22)
[2018-09-03 07:43] LABS: Potassium 5.1 mmol/L (3.5-5.1)
[2018-09-03 07:58] LABS: Basophils % (A) 0 %; Eosinophils % (A) 0 %; HCT 41.1 % (34.0-46.0); HGB 12.3 gm/dL (11.4-16.0); Hypochromasia Marked; Lymphocytes # (A) 1.6 k/uL (1.0-4.8); Lymphocytes % (A) 8 %; MCHC 29.9 g/dL (31.0-37.0); MCV 97.2 fL (80.0-100.0); Monocytes # (A) 0.7 k/uL (0-1.0); Monocytes % (A) 4 %; Neutrophils # (A) 17.4 k/uL (1.3-7.7); Neutrophils % (A) 87 %; Platelet Count 100 k/uL (150-450); RBC 4.22 m/uL (3.80-5.40); RDW 13.9 % (11.5-15.5)
[2018-09-03] MEDS ORDERED: IPRATROPIUM 0.5 MG/2.5 ML NEBU INHALATION SCH (08:00)
[2018-09-03] MEDS: NON-FORMULARY DRUG (Mometasone/Formoterol [Dulera 200 Mcg/5 Mcg Inhaler] 2 PUFF) INHALATION SCH ×3 (08:02→19:45)
[2018-09-03] MEDS ORDERED: METOPROLOL SUCCINATE (ER) 25 MG TAB.ER.24H PO SCH (09:00)
[2018-09-03] MEDS: HYDROCHLOROTHIAZIDE 12.5 MG CAP PO SCH (10:29)
[2018-09-03] MEDS: HYDROcodone/APAP 10-325MG 1 EACH TAB PO PRN ×3 (10:29→20:52)
[2018-09-03] MEDS: predniSONE 10 MG TAB PO SCH (10:30)
[2018-09-03] MEDS: VALSARTAN 160 MG TAB PO SCH (10:30)
[2018-09-03] MEDS: FUROSEMIDE 40 MG TAB PO SCH ×2 (10:30→17:28)
[2018-09-03] MEDS: VANCOMYCIN 1,500 MG in SODIUM CHLORIDE 0.9% 250 ML IVPB SCH ×2 (10:32→23:39)
[2018-09-03] MEDS: PIPERACILLIN-TAZOBACTAM 3.375 GM in DEXTROSE/WATER 1 50ML.BAG IVPB SCH ×3 (10:37→23:37)
[2018-09-03] MEDS: SODIUM CHLORIDE 0.9% 1,000 ML IV SCH ×2 (10:43→20:46)
--- NOTE | 2018-09-03 10:53 | CONS ---
CONSULTATION CHIEF COMPLAINT: Fatigue, tiredness and shortness of breath. Kamla is a 63-year-old lady with history of DVT, hypertension, COPD, who presented to the hospital with symptoms of not feeling well, fatigue, tiredness and shortness of breath and she also developed swelling and erythema and induration of the left leg. She initially presented to hospital outside and from there she had been transferred to [place] because of atrial fibrillation. She has left leg cellulitis and is currently being treated with antibiotics. Since being admitted, she is feeling much better. Her fatigue and tiredness have improved. Initial CBC shows elevated white cell count. Rhythm strip showed that she is in atrial fibrillation. She is currently on Coumadin because of history of DVT. I do not have an INR on. Her heart rate was poorly controlled on initial presentation and she is on IV Cardizem. Heart rate is better controlled now. PAST MEDICAL HISTORY: Past medical history is significant for DVT, hypertension, COPD. MEDICATIONS: Medications at home included Coumadin, prednisone, Diovan, Toprol XL, Lasix, albuterol and Atrovent. ALLERGIES: Allergic to ADVAIR. FAMILY HISTORY: Family history is negative for premature coronary artery disease. SOCIAL HISTORY: Social history is significant for smoking and ETOH abuse. REVIEW OF SYSTEMS: HEENT is unremarkable. CARDIAC: As described above. RESPIRATORY: As described above. GI: Negative. GENITOURINARY: Negative. ALLERGY/IMMUNOLOGICAL: Negative. SKIN: Negative. MUSCULOSKELETAL: Significant for cellulitis. PSYCHOSOCIAL: Negative. ENDOCRINE: Negative. HEMATOLOGIC: Negative. DERM: Negative. CONSTITUTIONAL: Significant for fatigue and tiredness. ONCOLOGICAL: Negative. PSYCHOLOGIST: Negative. Rest of the system review is not relevant. PHYSICAL EXAMINATION: On exam, patient is comfortable at rest. Vital signs are stable. There is no jugular venous distention. Carotid upstroke is normal. There is no bruit. Chest exam reveals good air entry bilaterally. Heart exam reveals first and second heart sounds, irregular rhythm. Abdomen is soft. Examination of the extremities reveals left leg edema, cellulitis and erythema. Foot pulses are palpable bilaterally. LABS: Labs show a hemoglobin of 12.3, white cell count of 20. Her potassium is 5, creatinine is 0.9, BUN is 46. Lactic acid level is 1.3. ASSESSMENT: 1. Cellulitis with left leg swelling. 2. Persistent atrial fibrillation with poorly controlled ventricular rate. PLAN: I am going to review an echocardiogram on her to evaluate her LV function. Check TSH on her. Will obtain an INR and adjust the Coumadin dose as needed. I will consider switching her to oral Cardizem or beta blockers. She is being treated with antibiotics for cellulitis. RUTH / GENARO: [id number] /
[2018-09-03 12:28] LABS: Prothrombin Time 61.3 sec (9.0-12.0)
[2018-09-03 12:32] LABS: INR 6.7 (<1.2)
[2018-09-03] MEDS ORDERED: METOPROLOL SUCCINATE (ER) 25 MG TAB.ER.24H PO STA (14:33)
[2018-09-03] MEDS ORDERED: BUDESONIDE 1 MG/2 ML NEBU INHALATION SCH (16:04)
--- NOTE | 2018-09-03 16:18 | ECHOF ---
Referral Reason:afib MEASUREMENTS -------- HEIGHT: 162.6 cm WEIGHT: 97.1 kg BP: 103/5 RVIDd: 3.5 cm (< 3.3) IVSd: 1.3 cm (0.6 - 1.1) LVIDd: 3.5 cm (3.9 - 5.3) LVPWd: 1.3 cm (0.6 - 1.1) IVSs: 1.8 cm LVIDs: 2.4 cm LVPWs: 1.6 cm LA Diam: 3.7 cm (2.7 - 3.8) LAESV Index (A-L): 17.21 ml/m Ao Diam: 2.9 cm (2.0 - 3.7) AV Cusp: 1.9 cm (1.5 - 2.6) MV EXCURSION: 17.007 mm (> 18.000) MV EF SLOPE: 138 mm/s (70 - 150) EPSS: 0.3 cm AV maxP.40 mmHg AV meanP.41 mmHg RAP: 5.00 mmHg RVSP: 66.38 mmHg FINDINGS -------- Atrial fibrillation. This was a technically adequate study. The left ventricular size is normal. There is mild concentric left ventricular hypertrophy. Overa ll left ventricular systolic function is normal with, an EF between 55 - 60 %. There is septal flat tening in diastole and systole which is consistent with right ventricular pressure and volume overloa d. The right ventricle is mildly enlarged. The right ventricular systolic function is moderately impai red. Normal LA size by volume 22+/-6 ml/m2. The right atrial size is normal. There is mild aortic valve sclerosis. Peak/mean gradient across the Aortic Valve is 14.40mmHg / 7.4 1mmHg. Mild mitral annular calcification present. Mild mitral regurgitation is present. Moderate to severe tricuspid regurgitation present. There is severe pulmonary hypertension. The r ight ventricular systolic pressure, as measured by Doppler, is 66.38mmHg. Moderate pulmonic regurgitation. The aortic root size is normal. The inferior vena cava is mildly dilated. There is no pericardial effusion. CONCLUSIONS -------- 1. Atrial fibrillation. 2. This was a technically adequate study. 3. The left ventricular size is normal. 4. There is mild concentric left ventricular hypertrophy. 5. Overall left ventricular systolic function is normal with, an EF between 55 - 60 %. 6. There is septal flattening in diastole and systole which is consistent with right ventricular pres sure and volume overload. 7. The right ventricle is mildly enlarged. 8. The right ventricular systolic function is moderately impaired. 9. Normal LA size by volume 22+/-6 ml/m2. 10. There is mild aortic valve sclerosis. 11. Peak/mean gradient across the Aortic Valve is 14.40mmHg / 7.41mmHg. 12. Mild mitral annular calcification present. 13. Mild mitral regurgitation is present. 14. Moderate to severe tricuspid regurgitation present. 15. There is severe pulmonary hypertension. 16. Moderate pulmonic regurgitation. 17. The aortic root size is normal. 18. The inferior vena cava is mildly dilated. 19. There is no pericardial effusion. DYNAMITE PACKING MACHINE OPERATOR: Hannah Guevara RDCS
--- NOTE | 2018-09-03 17:21 | HP ---
HISTORY AND PHYSICAL DATE OF ADMISSION: DATE OF SERVICE: 09/03/2018 PRESENTING COMPLAINT: Left leg swollen and red. HISTORY OF PRESENTING COMPLAINT: This is a pleasant 63-year-old patient whose chronic stable medical conditions include hypertension, pulmonary embolism, atrial fibrillation, blood clotting disorder, anxiety, and patient is also on Coumadin. The patient presented with a multitude of symptoms. For the last 2 days her left lower extremity was noted to become red, dusky, more painful, with draining from a wound. She denies any local trauma. The patient has felt a bit hot and has had chills. Patient has also a cough, wheezing. No sputum. Decreased appetite. Tired, rundown, short of breath; multitude of symptoms. Hence she was admitted for the same. Patient was started on IV Zosyn in the ER and vancomycin. Admitted for the same for the same. Heart rate is a bit up. Does feel tired and rundown. REVIEW OF SYSTEMS: CONSTITUTIONAL: Weak, tired, hot, chills. HEENT: None. RESPIRATORY: As above. CARDIOVASCULAR: No chest pain. GASTROINTESTINAL: None. GENITOURINARY: None. MUSCULOSKELETAL: Arthritic pain in the joints. DERMATOLOGICAL: As above. HEMATOLOGICAL: None. LYMPHATICS: None. PSYCHIATRY: A bit anxious. NEUROLOGICAL: None. PAST MEDICAL HISTORY: 1. COPD. 2. DVT. 3. Hypertension. 4. Osteoarthritis. 5. Pulmonary embolism. 6. Home oxygen 3 L. 7. Genetic blood clotting disorder. PAST SURGICAL HISTORY: 1. Adenoidectomy. 2. Appendectomy. 3. Bladder surgery. 4. Cholecystectomy. 5. Tonsillectomy. SOCIAL HISTORY: Lives alone. Does use a walker oftentimes. Smoked for about 30 years, less than a pack a day, and stopped in 2006. No alcohol. FAMILY HISTORY: COPD and DVT. HOME MEDICATIONS: 1. [place] 10 one tablet q.4 p.r.n. 2. Coumadin 2.5 mg Saturday, Saturday, Saturday, , Saturday, Saturday and 7.5 mg on Sundays. 3. Prednisone 10 mg a day. 4. Diovan 160 mg a day. 5. Spiriva 1 capsule daily. 6. Dulera 200/5 two puffs b.i.d. 7. Toprol-XL 25 mg a day. 8. Atrovent HFA 2 puffs q.i.d. 9. Hydrochlorothiazide 12.5 mg a day. 10.Lasix 40 mg b.i.d. 11.Albuterol 2 puffs q.6 p.r.n. ALLERGY: ADVAIR. PHYSICAL EXAMINATION: VITAL SIGNS ON PRESENTATION: Afebrile. Pulse 117, respiration 22, blood pressure 104/57, pulse ox 94% on 4 L. GENERAL APPEARANCE: Well built; BMI 36.8. Sitting at the edge of the bed. Short of breath, coughing. EYES: Pupils equal. Conjunctivae normal. HEENT: External appearance of nose and ears normal. Oral cavity normal. NECK: JVD unable to assess. Mass not palpable. RESPIRATORY: Effort increased. LUNGS: Decreased breath sounds. Some wheezing. Mild crackles. CARDIOVASCULAR: Heart sounds irregular. Some edema present. ABDOMEN: Soft, nontender. Liver and spleen not palpable. LYMPHATIC: No lymph node palpable in neck or axillae. PSYCHIATRY: Alert and oriented x3. Mood and affect slightly anxious-appearing. EXTREMITIES: Left lower extremity correction below the calf has a dusky appearance going down to the foot. Somewhat swollen, tender. Breakdown of the skin anteriorly with some drainage with some pus. INVESTIGATIONS: White count 20, hemoglobin 12.3, potassium 5.1, BUN 46, creatinine 0.94. TSH less than 0.015. INR 6.7. ASSESSMENT: 1. Acute left foot wound with cellulitis, draining. 2. Acute chronic obstructive pulmonary disease exacerbation in an ex-smoker who is on steroid and oxygen-dependent. 3. Chronic hypoxic respiratory failure, on 3 L oxygen at home, from underlying chronic obstructive pulmonary disease. 4. Essential hypertension. 5. Chronic pulmonary embolism, chronically on Coumadin. 6. Coumadin monitoring with toxicity. No evidence of bleeding. 7. Genetic blood clotting disorder. Patient does not know what it is. 8. Anxiety not otherwise specified. 9. Obesity; body mass index 36.8. 10.Persistent atrial fibrillation with heart rate uncontrolled on presentation. PLAN: Patient is started on IV Zosyn and vancomycin. We will be sending on wound culture for Gram stain. Patient is started on nebulized bronchodilators and inhaled steroids. Patient's Coumadin has been held off. Home medications are resumed. Consultation was made to Cardiology, Pulmonary, Infectious Disease. Care was discussed with the patient. MMODL / IJN: [id number] /
[2018-09-03] MEDS: WARFARIN 2.5 MG TAB PO SCH (17:27)
[2018-09-03] MEDS: IPRATROPIUM-ALBUTEROL 3 ML NEB INHALATION SCH ×2 (19:42→23:54)
[2018-09-03] MEDS ORDERED: TIOTROPIUM BROMIDE INHALATION SCH (21:00)
--- NOTE | 2018-09-03 21:00 | XR ---
EXAMINATION TYPE: XR chest 2V DATE OF EXAM: 09/03/2018 COMPARISON: 10/07/2017 HISTORY: Short of breath TECHNIQUE: Frontal and lateral views of the chest are obtained. FINDINGS: There is no heart failure nor confluent pneumonic infiltrate. Costophrenic angles are flavia r. Thoracic aorta is atheromatous. There are chest leads. IMPRESSION: Borderline cardiomegaly. No active cardiac pulmonary disease. There is clearing of mild pulmonary congestion compared to last exam.
--- NOTE | 2018-09-03 22:29 | P.CONS ---
History of Present Illness - Reason for Consult Consult date: 09/03/18 - Chief Complaint Cellulitis left leg - History of Present Illness 63-year-old female has a history of obesity, coronary artery disease, atrial fibrillation, history of deep venous thrombosis no known clotting disorder chronically on Coumadin therapy. She presents to Hospital from outside facility for further evaluation of her atrial fibrillation in the swelling erythema and infection to the left lower extremity. The patient relates for several days before coming Hospital she's having increasing pain swelling and erythema to the left leg. She was also developing some weeping. She's had this occasionally over the years with the leg will become more swollen and she then seeks medical attention. She also relates that in the area of her thyroid gland there's been some swelling in she's been able to feel some nodularity in that area, she relates that it does seem to affect her swallowing minimally with a fullness sensation. She denies choking or difficulty with breathing due to sensation of airway closing. She may have had a fever certainly had chill and felt cold. It appears she also is having some rigors the day before she sought care. Since coming to hospital and having atrial fibrillation controlled she's feeling better. But does have significant leukocytosis and the infectious diseases was requested. Review of Systems 63-year-old woman feeling just slightly better than admission HEENT:Denies headache or acute visual change. Denies sinus or mouth discomforts. Fullness to her neck. Denies significant oral cavity pain. Denies difficulty on swallowing. Lungs: Was having some shortness of breath for admission without significant cough production or hemoptysis. Cardiovascular: Denies chest pain, chest wall pain, orthopnea, dyspnea on exertion greater than her baseline, or syncope Gastrointestinal:Denies nausea, vomiting, diarrhea, constipation, hematemesis, melena, hematochezia. No no significant change of bowel habit noticed. Musculoskeletal: denies significant myalgias or arthralgias. No new joint swelling. Denies new back pain. Skin: As per the HPI swelling erythema discomfort and drainage the left leg Neuro: Denies headache or visual change. Denies any new onset weakness or difficulty with ambulation. Denies falls or seizures. Psychiatric:Denies anxiety or depression. Endocrine: Has chronic fatigue with those been stable Past Medical History Past Medical History: COPD, Deep Vein Thrombosis (DVT), Hypertension, Musculoskeletal Disorder, Pneumonia, Pulmonary Embolus (PE) Additional Past Medical History / Comment(s): Advanced oxygen-dependent COPD, previous history of DVT, previous history of pulmonary embolism and the patient has been maintained on Coumadin, degenerative arthritis, chronic hypoxic respiratory failure on oxygen 3 L/m nasal cannula, hx cellulitis", genetic blood clotting disorder pt not sure what it's called" History of Any Multi-Drug Resistant Organisms: MRSA Year Discovered:: 2014 MDRO Source:: WOUND ON ARM Past Surgical History: Adenoidectomy, Appendectomy, Bladder Surgery, Cholecystectomy, Tonsillectomy Past Anesthesia/Blood Transfusion Reactions: No Reported Reaction Additional Past Anesthesia/Blood Transfusion Reaction / Comm: clausterphobia Additional Psychological History / Comment(s): . Lives independently. No animal exposures. [place]. No experience. No international travel Smoking Status: Former smoker - Past Family History Mother Family Medical History: COPD, Deep Vein Thrombosis (DVT) Additional Family Medical History / Comment(s): HEAVY SMOKER AND DRINKER Father Family Medical History: Renal Disease Medications and Allergies Home Medications and Allergies Comment(s): Current Medications Acetaminophen (Tylenol Tab) 650 mg PO Q6HR PRN PRN Reason: Mild Pain or Fever > 100.5 Acetaminophen/Codeine Phosphate (Tylenol #3) 1 each PO Q4HR PRN PRN Reason: Moderate Pain Hydrocodone Bitart/Acetaminophen (Timpson 10) 1 each PO Q4HR PRN PRN Reason: Pain Last Admin: 09/03/18 20:52 Dose: 1 each Albuterol/Ipratropium (Duoneb 0.5 Mg-3 Mg/3 Ml Soln) 3 ml INHALATION RT-QID PRN PRN Reason: Shortness Of Breath Last Admin: 09/03/18 15:22 Dose: 3 ml Albuterol/Ipratropium (Duoneb 0.5 Mg-3 Mg/3 Ml Soln) 3 ml INHALATION RT-Q4H HERMES Last Admin: 09/03/18 19:42 Dose: 3 ml Bisacodyl (Dulcolax) 10 mg RECTAL ONCE PRN PRN Reason: Constipation Calcium Carbonate/Glycine (Tums) 1,000 mg PO Q4HR PRN PRN Reason: Dyspepsia Furosemide (Lasix) 40 mg PO 0900,1700 HERMES Last Admin: 09/03/18 17:28 Dose: 40 mg Hydrochlorothiazide (Hydrodiuril) 12.5 mg PO DAILY [facility] Last Admin: 09/03/18 10:29 Dose: 12.5 mg Sodium Chloride (Saline 0.9%) 1,000 mls @ 120 mls/hr IV .Q8H20M [facility] Last Admin: 09/03/18 20:46 Dose: 120 mls/hr Piperacillin/Tazobactam/ (Dextrose 3.375 gm/ IV Solution) 50 mls @ 12.5 mls/hr IVPB Q8HR [facility] Last Admin: 09/03/18 15:54 Dose: 12.5 mls/hr Vancomycin HCl 1,500 mg/ (Sodium Chloride) 250 mls @ 125 mls/hr IVPB Q16H [facility] Last Admin: 09/03/18 10:32 Dose: 125 mls/hr Magnesium Hydroxide (Milk Of Magnesia) 2,400 mg PO DAILY PRN PRN Reason: Constipation Metoprolol Succinate (Toprol Xl) 50 mg PO DAILY [facility] Naloxone HCl (Narcan) 0.2 mg IV Q2M PRN PRN Reason: Opioid Reversal Non-Formulary Medication (Mometasone/Formoterol [Dulera 200 Mcg/5 Mcg Inhaler]) 2 puff INHALATION RT-BID [facility] Last Admin: 09/03/18 19:45 Dose: 2 puff Prednisone () 10 mg PO DAILY [facility] Last Admin: 09/03/18 10:30 Dose: 10 mg Valsartan (Diovan) 160 mg PO DAILY [facility] Last Admin: 09/03/18 10:30 Dose: 160 mg Warfarin Sodium (Coumadin) 2.5 mg PO MOTUWETHFRSA [facility] Last Admin: 09/03/18 17:27 Dose: Not Given Warfarin Sodium (Coumadin) 7.[address] [facility] Home Medications Medication Instructions Recorded Confirmed Type Albuterol Inhaler [Ventolin Hfa 2 puff INHALATION RT-Q6H PRN 07/24/17 09/02/18 History Inhaler] Furosemide [Lasix] 40 mg PO BID 07/24/17 09/02/18 History HYDROcodone/APAP 10-325MG [Timpson 1 tab PO Q4HR PRN 07/24/17 09/03/18 History 10-325] Ipratropium [place] [Atrovent Hfa] 2 puff INHALATION RT-QID 07/24/17 09/02/18 History Mometasone/Formoterol [Dulera 200 2 puff INHALATION RT-BID 07/24/17 09/02/18 History Mcg/5 Mcg Inhaler] Tiotropium [place] [Spiriva] 1 cap INHALATION RT-DAILY 07/24/17 09/02/18 History Valsartan [Diovan] 160 mg PO DAILY 07/24/17 09/02/18 History predniSONE 10 mg PO DAILY #30 tab 10/07/17 09/02/18 Rx Hydrochlorothiazide 12.5 mg PO DAILY 09/02/18 09/02/18 History Metoprolol Succinate [Toprol XL] 25 mg PO DAILY 09/02/18 09/02/18 History Warfarin Sodium 7.5 mg PO [place] 09/02/18 09/02/18 History Warfarin [Coumadin] 2.5 mg PO MOTUWETHFRSA 09/02/18 09/02/18 History Allergies Allergy/AdvReac Type Severity Reaction Status Date / Time fluticasone Allergy Anaphylaxis Verified 09/02/18 17:06 [From Advair Diskus] salmeterol Allergy Anaphylaxis Verified 09/02/18 17:06 [From Advair Diskus] Physical Exam Vitals: Vital Signs Temp Pulse Pulse Resp BP BP Pulse Ox 09/03/18 20:00 98.8 F 101 H 24 98/57 100 09/03/18 19:55 98 09/03/18 19:42 94 09/03/18 16:00 98.1 F 88 18 128/76 96 09/03/18 15:35 115 H 22 09/03/18 15:23 113 H 18 96 09/03/18 11:18 24 09/03/18 11:17 98.6 F 98 24 119/85 98 09/03/18 08:53 84 09/03/18 08:43 80 09/03/18 08:00 98.7 F 90 24 108/68 98 09/03/18 05:47 88 09/03/18 05:37 88 09/03/18 04:00 96.8 F L 83 22 103/57 99 09/03/18 00:00 97.6 F 85 22 104/56 96 09/02/18 22:41 97.6 F 85 24 112/55 95 Intake and Output 1009/03/18 09/03/18 06:59 14:59 22:59 Intake Total 240 730 Balance 240 730 Intake: IV 10 Invasive Line 2 10 Oral 240 720 Other: Voiding Method Bedside Commode Bedside Commode # Voids 1 1 # Bowel Movements 1 1 Weight 97.3 kg 63-year-old female with significant obesity HEENT: Anicteric conjunctiva are pink and moist nasal mucosa grossly intact without significant lesions, there is no thrush. Neck: The neck is supple no palpable lymphadenopathy but the thyroid gland is large and nodular in its texture Lungs: There is symmetrical air entry with expiratory wheezes that are scattered few basilar crackles no Ryanne sounds no dullness or egophony Heart: Irregularly irregular with audible S1 and S2 soft S4 no distinct murmur click or rub PMI was nondisplaced the urethral Abdomen: Obese, Positive bowel sounds soft and nontender without palpable masses or organomegaly. There was no guarding or rebound. Extremities: The upper extremities have excellent pulses they are symmetric, no significant petechiae or telangiectasia. No splinter hemorrhages were noted. The lower extremities have evidence of the bilateral lower extremity edema left considerably greater than the right. Left leg has evidence of the circumferential erythema that is present from the mid tibia onto the foot, there is evidence of some scant drainage it's on the dressing. It is serous in nature not grossly purulent. The area is tender to touch and has distinct warmth. Neuro: Awake alert oriented to person place and time. There are no acute new gross focal sensory motor deficits. Results CBC & Chem 7: 09/03/18 06:46 09/03/18 06:46 Labs: Abnormal Lab Results - Last 24 Hours (Table) 09/03/18 09/03/18 09/03/18 Range/Units 06:46 06:46 06:46 WBC 20.0 H (3.8-10.6) k/uL MCHC 29.9 L (31.0-37.0) g/dL Plt Count 100 L (150-450) k/uL Neutrophils # 17.4 H (1.3-7.7) k/uL PT (9.0-12.0) sec INR (<1.2) BUN 46 H (7-17) mg/dL Glucose 154 H (74-99) mg/dL Calcium 8.0 L (8.4-10.2) mg/dL TSH <0.015 L (0.465-4.680) mIU/L 09/03/18 Range/Units 10:38 WBC (3.8-10.6) k/uL MCHC (31.0-37.0) g/dL Plt Count (150-450) k/uL Neutrophils # (1.3-7.7) k/uL PT 61.3 H (9.0-12.0) sec INR 6.7 H* (<1.2) BUN (7-17) mg/dL Glucose (74-99) mg/dL Calcium (8.4-10.2) mg/dL TSH (0.465-4.680) mIU/L Microbiology - Last 24 Hours (Table) 09/02/18 18:05 Blood Culture - Preliminary Blood No Growth after 24 hours Laboratory Results WBC 20.0 k/uL (3.8-10.6) H 09/03/18 06:46 RBC 4.22 m/uL (3.80-5.40) 09/03/18 06:46 Hgb 12.3 gm/dL (11.4-16.0) 09/03/18 06:46 Hct 41.1 % (34.0-46.0) 09/03/18 06:46 MCV 97.2 fL (80.0-100.0) 09/03/18 06:46 MCH 29.0 pg (25.0-35.0) 09/03/18 06:46 MCHC 29.9 g/dL (31.0-37.0) L 09/03/18 06:46 RDW 13.9 % (11.5-15.5) 09/03/18 06:46 Plt Count 100 k/uL (150-450) L 09/03/18 06:46 Neutrophils % 87 % 09/03/18 06:46 Lymphocytes % 8 % 09/03/18 06:46 Monocytes % 4 % 09/03/18 06:46 Eosinophils % 0 % 09/03/18 06:46 Basophils % 0 % 09/03/18 06:46 Neutrophils # 17.4 k/uL (1.3-7.7) H 09/03/18 06:46 Lymphocytes # 1.6 k/uL (1.0-4.8) 09/03/18 06:46 Monocytes # 0.7 k/uL (0-1.0) 09/03/18 06:46 Eosinophils # 0.0 k/uL (0-0.7) 09/03/18 06:46 Basophils # 0.0 k/uL (0-0.2) 09/03/18 06:46 Hypochromasia Marked 09/03/18 06:46 PT 61.3 sec (9.0-12.0) H 09/03/18 10:38 INR 6.7 (<1.2) H* 09/03/18 10:38 Sodium 141 mmol/L (137-145) 09/03/18 06:46 Potassium 5.1 mmol/L (3.5-5.1) 09/03/18 06:46 Chloride 106 mmol/L (98-107) 09/03/18 06:46 Carbon Dioxide 28 mmol/L (22-30) 09/03/18 06:46 Anion Gap 7 mmol/L 09/03/18 06:46 BUN 46 mg/dL (7-17) H 09/03/18 06:46 Creatinine 0.94 mg/dL (0.52-1.04) 09/03/18 06:46 Est GFR (CKD-EPI)AfAm 74 (>60 ml/min/1.73 sqM) 09/03/18 06:46 Est GFR (CKD-EPI)NonAf 64 (>60 ml/min/1.73 sqM) 09/03/18 06:46 Glucose 154 mg/dL (74-99) H 09/03/18 06:46 Plasma Lactic Acid Leonardo 1.3 mmol/L (0.7-2.0) 09/02/18 18:05 Calcium 8.0 mg/dL (8.4-10.2) L 09/03/18 06:46 TSH <0.015 mIU/L (0.465-4.680) L 09/03/18 06:46 Microbiology 09/02/18 18:05 Blood Blood Culture - Preliminary No Growth after 24 hours Assessment and Plan (1) Cellulitis of left lower extremity Narrative/Plan: 63-year-old female with obesity was a known history of deep venous thrombosis or pulmonary embolus was on chronic anticoagulation therapy presents to outside hospital with shortness of breath and increasing pain and swelling erythema and drainage from her left leg. His history of prior bouts of cellulitis of the left leg and a history of extremity edema after her DVT. With evidence of the cellulitis and atrial fibrillation with rapid ventricular response she was transferred to our facility and has been stabilized. With Cardizem, fluids and antibiotic therapy she is ready feeling somewhat better. The left leg however is still erythematous uncomfortable and draining. There is evidence of the leukocytosis on the basis of the cellulitis to the left leg. Local wound care with Silvadene wrap will be requested an Liam wrap from the foot to the knee. Elevated a rest as best as she can. She does like to sit up with her legs in dependent position because of her obesity which does worsen her edema. Hopefully she will elevate her legs a bit further. She does not like the food but we suggest a high protein intake will be helpful for healing. Multivitamin without vitamin K is also suggested for healing. Cardiology is following regarding her atrial fibrillation and her edema. Current Visit: Yes Status: Acute Code(s): L03.116 - CELLULITIS OF LEFT LOWER LIMB SNOMED Code(s): 106488044 (2) Atrial fibrillation with rapid ventricular response Current Visit: Yes Status: Acute Code(s): I48.91 - UNSPECIFIED ATRIAL FIBRILLATION SNOMED Code(s): 363230321074098 (3) History of deep venous thrombosis in adulthood Current Visit: Yes Status: Acute Code(s): Z86.718 - PERSONAL HISTORY OF OTHER VENOUS THROMBOSIS AND EMBOLISM SNOMED Code(s): 055187557
[2018-09-04] MEDS: SODIUM CHLORIDE 0.9% 1,000 ML IV SCH ×3 (04:06→20:06)
[2018-09-04] MEDS: HYDROcodone/APAP 10-325MG 1 EACH TAB PO PRN ×5 (04:15→20:00)
[2018-09-04] MEDS: IPRATROPIUM-ALBUTEROL 3 ML NEB INHALATION SCH ×6 (04:56→23:56)
[2018-09-04 06:44] LABS: Basophils % (A) 0 %; Eosinophils % (A) 0 %; HCT 35.2 % (34.0-46.0); Hypochromasia Slight; Lymphocytes # (A) 1.4 k/uL (1.0-4.8); Lymphocytes % (A) 10 %; MCH 29.2 pg (25.0-35.0); MCHC 31.3 g/dL (31.0-37.0); MCV 93.3 fL (80.0-100.0); Mean Platelet Volume 7.8; Monocytes # (A) 0.7 k/uL (0-1.0); Monocytes % (A) 5 %; Neutrophils % (A) 83 %; Platelet Count 101 k/uL (150-450); RBC 3.78 m/uL (3.80-5.40); RDW 13.9 % (11.5-15.5); WBC 14.4 k/uL (3.8-10.6)
[2018-09-04 07:16] LABS: Calcium 7.9 mg/dL (8.4-10.2); Potassium 4.3 mmol/L (3.5-5.1)
[2018-09-04 08:01] LABS: Prothrombin Time 58.6 sec (9.0-12.0)
[2018-09-04] MEDS: VALSARTAN 160 MG TAB PO SCH (08:01)
[2018-09-04 08:02] LABS: INR 6.4 (<1.2)
[2018-09-04] MEDS: FUROSEMIDE 40 MG TAB PO SCH ×2 (08:02→16:14)
[2018-09-04] MEDS: METOPROLOL SUCCINATE (ER) 50 MG TAB.ER.24H PO SCH (08:02)
[2018-09-04] MEDS: predniSONE 10 MG TAB PO SCH (08:02)
[2018-09-04] MEDS: HYDROCHLOROTHIAZIDE 12.5 MG CAP PO SCH (08:02)
[2018-09-04] MEDS: PIPERACILLIN-TAZOBACTAM 3.375 GM in DEXTROSE/WATER 1 50ML.BAG IVPB SCH ×2 (10:15→16:11)
[2018-09-04] MEDS: NON-FORMULARY DRUG (Mometasone/Formoterol [Dulera 200 Mcg/5 Mcg Inhaler] 2 PUFF) INHALATION SCH ×2 (10:19→22:16)
[2018-09-04 10:23] LABS: T4, Free (Free Thyroxine) 3.12 ng/dL (0.78-2.19)
[2018-09-04] MEDS ORDERED: PHYTONADIONE 2 MG in SODIUM CHLORIDE 0.9% 50 ML IVPB STA (10:50)
[2018-09-04] MEDS ORDERED: PHYTONADIONE ORAL 5 MG/5 ML ORAL.SYRG PO STA (12:07)
--- NOTE | 2018-09-04 15:36 | P.CNPUL ---
History of Present Illness Consult date: 09/04/18 Reason for consult: dyspnea, COPD History of present illness: A 63-year-old female patient with known history of COPD and chronic hypoxic respiratory failure maintained on a combination of Dulera and Spiriva on outpatient basis regarding her COPD. The patient also has had previous history of recurrent DVT and pulmonary embolism and the patient has been on long-term anticoagulation with warfarin. She also has an IVC filter in place. The patient came into the hospital because of increased swelling and pain and redness in her left lower extremity. Apparently this has been going on for the past few days and the patient presented to the hospital because of increasing pain and erythema in the left leg. She was also having some progressive weakness and she was found to be in atrial fibrillation with rapid ventricular response and the patient was started on Cardizem drip at the time of admission. Cardiology consultation is also be obtained. No cough or sputum production. No hemoptysis or pleurisy. No altered mentation. No nausea or vomiting no worsening of shortness of breath and her dyspnea is at his baseline for now. The patient came into the hospital and the patient was diagnosed having cellulitis of the left lower extremity. She was seen by infectious disease. The leg is wrapped for now. She was started on a combination of antibiotics including Zosyn and vancomycin. Chest x-ray shows borderline cardiomegaly without any acute cardiopulmonary process. The echocardiogram was also repeated and the patient was found to have mild concentric left ventricular hypertrophy, EF around 55-60%, mild aortic sclerosis, severe pulmonary hypertension which is probably related to her chronic lung disease. The patient 's INR is at 6.4 today and this is obviously toxic without any indication for bleeding and the patient will be given 2 mg of vitamin K. Renal function is stable. Review of Systems Constitutional: Reports fatigue, Reports weakness Eyes: denies blurred vision, denies bulging eye, denies decreased vision Ears: deny: decreased hearing, ear discharge, earache, tinnitus Ears, nose, mouth and throat: Denies headache, Denies sore throat Cardiovascular: Reports dyspnea on exertion Respiratory: Reports cough, Reports dyspnea, Reports wheezing Gastrointestinal: Denies abdominal pain, Denies diarrhea, Denies nausea, Denies vomiting Genitourinary: Reports as per HPI Musculoskeletal: left: ankle swelling, bilateral: ankle pain, ankle stiffness Integumentary: Reports as per HPI, Reports color changes, Reports depigmentation Neurological: Denies numbness, Denies weakness Psychiatric: Reports as per HPI Endocrine: Denies fatigue, Denies weight change Hematologic/Lymphatic: Reports as per HPI Allergic/Immunologic: Reports as per HPI Past Medical History Past Medical History: COPD, Deep Vein Thrombosis (DVT), Hypertension, Musculoskeletal Disorder, Pneumonia, Pulmonary Embolus (PE) Additional Past Medical History / Comment(s): Advanced oxygen-dependent COPD, previous history of DVT, previous history of pulmonary embolism and the patient has been maintained on Coumadin, degenerative arthritis, chronic hypoxic respiratory failure on oxygen 3 L/m nasal cannula, hx cellulitis", 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 Lives independently. No animal exposures. [place]. No experience. No international travel Smoking Status: Former smoker - Past Family History Mother Family Medical History: COPD, Deep Vein Thrombosis (DVT) Additional Family Medical History / Comment(s): HEAVY SMOKER AND DRINKER Father Family Medical History: Renal Disease Medications and Allergies Home Medications Medication Instructions Recorded Confirmed Type Albuterol Inhaler [Ventolin Hfa 2 puff INHALATION RT-Q6H PRN 07/24/17 09/02/18 History Inhaler] Furosemide [Lasix] 40 mg PO BID 07/24/17 09/02/18 History HYDROcodone/APAP 10-325MG [[place] 1 tab PO Q4HR PRN 07/24/17 09/03/18 History 10-325] Ipratropium [place] [Atrovent Hfa] 2 puff INHALATION RT-QID 07/24/17 09/02/18 History Mometasone/Formoterol [Dulera 200 2 puff INHALATION RT-BID 07/24/17 09/02/18 History Mcg/5 Mcg Inhaler] Tiotropium [place] [Spiriva] 1 cap INHALATION RT-DAILY 07/24/17 09/02/18 History Valsartan [Diovan] 160 mg PO DAILY 07/24/17 09/02/18 History predniSONE 10 mg PO DAILY #30 tab 10/07/17 09/02/18 Rx Hydrochlorothiazide 12.5 mg PO DAILY 09/02/18 09/02/18 History Metoprolol Succinate [Toprol XL] 25 mg PO DAILY 09/02/18 09/02/18 History Warfarin Sodium 7.5 mg PO SPRAGUE 09/02/18 09/02/18 History Warfarin [Coumadin] 2.5 mg PO MOTUWETHFRSA 09/02/18 09/02/18 History Allergies Allergy/AdvReac Type Severity Reaction Status Date / Time fluticasone Allergy Anaphylaxis Verified 09/02/18 17:06 [From Advair Diskus] salmeterol Allergy Anaphylaxis Verified 09/02/18 17:06 [From Advair Diskus] Physical Exam Vitals: Vital Signs Temp Pulse Pulse Resp BP BP Pulse Ox 09/04/18 12:04 88 09/04/18 11:50 80 09/04/18 11:23 110 H 24 09/04/18 09:10 97.7 F 112 H 22 104/56 95 09/04/18 07:56 97 09/04/18 07:55 108 H 22 09/04/18 07:45 96 09/04/18 05:06 108 H 09/04/18 04:57 104 H 09/04/18 04:00 97.4 F L 99 22 104/59 97 09/04/18 00:09 104 H 09/04/18 00:00 98.4 F 104 H 18 112/58 95 09/03/18 23:55 104 H 09/03/18 20:00 98.8 F 101 H 24 98/57 100 09/03/18 19:55 98 09/03/18 19:42 94 09/03/18 16:00 98.1 F 88 18 128/76 96 09/03/18 15:35 115 H 22 09/03/18 15:23 113 H 18 96 Intake and Output 09/04/18 09/04/18 09/04/18 06:59 14:59 22:59 Intake Total 1100 260 Output Total 300 300 Balance 1100 -40 -300 Intake: IV 20 20 Invasive Line 2 20 20 Intake, IV Titration 1080 Amount Sodium Chloride 0.9% 1, 1080 000 ml @ 120 mls/hr IV . Q8H20M [facility] Rx#:[id number] Oral 240 Output: Urine 300 300 Other: Voiding Method Bedside Commode Bedside Commode # Voids 1 1 # Bowel Movements 0 0 Weight 100.7 kg Gen. appearance the patient is calm, not in acute respiratory distress. Slightly tachycardic no significant tachypnea this point. She is not using excessive muscle breathing. Head exam was generally normal. There was no scleral icterus or corneal arcus. Mucous membranes were moist. Neck is supple and the patient is no JVDs no goiter or neck masses. She has or mental conditions. Lung sounds are diminished and the patient is having some limited crackles over the right lateral and anterior chest area. Scattered expiratory wheezes. Otherwise no other abnormalities are noted. Cardiac exam revealed the PMI to be normally situated and sized. The rhythm was regular and no extrasystoles were noted during several minutes of auscultation. The first and second heart sounds were normal and physiologic splitting of the second heart sound was noted. There were no murmurs, rubs, clicks, or gallops.Abdominal exam revealed normal bowel sounds. The abdomen was soft, non- tender, and without masses, organomegaly, or appreciable enlargement of the abdominal aorta.Extremities: The upper extremities have excellent pulses they are symmetric, no significant petechiae or telangiectasia. No splinter hemorrhages were noted. The lower extremities have evidence of the bilateral lower extremity edema left considerably greater than the right. Left leg has evidence of the circumferential erythema that is present from the mid tibia onto the foot, there is evidence of some scant drainage it's on the dressing. It is serous in nature not grossly purulent. The area is tender to touch and has distinct warmth.. Neurologically the patient is awake and alert and there is no focal neurological deficit at this point Results - Laboratory Findings CBC and BMP: 09/04/18 06:18 09/04/18 06:18 PT/INR, D-dimer PT 58.6 sec (9.0-12.0) H 09/04/18 06:18 INR 6.4 (<1.2) H* 09/04/18 06:18 Abnormal lab findings: Abnormal Labs 09/02/18 09/03/18 09/03/18 18:05 06:46 06:46 WBC 20.0 H RBC Hgb MCHC 29.9 L Plt Count 100 L Neutrophils # 17.4 H PT INR Sodium BUN 47 H 46 H Glucose 117 H 154 H Calcium 7.7 L 8.0 L TSH Free T4 Free T3 pg/mL 09/03/18 09/03/18 09/04/18 06:46 10:38 06:18 WBC 14.4 H RBC 3.78 L Hgb 11.0 L MCHC Plt Count 101 L Neutrophils # 12.0 H PT 61.3 H INR 6.7 H* Sodium BUN Glucose Calcium TSH <0.015 L Free T4 Free T3 pg/mL 09/04/18 09/04/18 09/04/18 06:18 06:18 06:18 WBC RBC Hgb MCHC Plt Count Neutrophils # PT 58.6 H INR 6.4 H* Sodium 136 L BUN 50 H Glucose 129 H Calcium 7.9 L TSH Free T4 3.12 H Free T3 pg/mL 8.4 H - Diagnostic Findings Chest x-ray: image reviewed Assessment and Plan Plan: Assessment 1 left lower extremity cellulitis. The patient has chronic edema related to previous DVTs of the left lower extremity. The patient came with increasing pain and erythema and drainage from the skin surface and the findings were consistent with a left lower extremity cellulitis in a patient is currently on a combination of Zosyn and vancomycin. The patient is also receiving local wound care with Silvadene wrap and an Liam wrap knee-high. 2 COPD, severe yet stable and the patient has no signs of exacerbation maintained on a combination of Dulera and Spiriva on outpatient basis 3 chronic hypoxic respiratory failure secondary to above 4 history of recurrent DVTs and pulmonary embolism maintained on lifelong articulation with warfarin. Patient has an IVC filter in place. 5 Coumadin toxicity without any signs of bleeding 6 degenerative arthritis 7 chronic smoker 8 hypertension 9 atrial fibrillation,, likely of a new onset. Patient was tachycardic at time of admission and currently her rate is under better control and testing specialist on the case. Echocardiogram showing a preserved LV function. Patient is on long- term anticoagulation with warfarin Plan The patient is stable from pulmonary standpoint. We'll continue the DuoNeb the right seems [id number]. Continue action therapy. Provide an incentive spirometer. Hold Coumadin for now give the patient 2 mg of vitamin K and repeat PT/INR in the morning. Continue 10 mg of prednisone as maintenance. Antibiotic per infectious disease and the patient is currently on a combination of Zosyn and vancomycin. Local wound care with Silvadene cream and Liam wraps. Restart Lasix 40 mg twice a day. Management of atrial fibrillation per cardiology. The echocardiogram was noted.. We'll continue to follow make further recommendations based on her progress.
[2018-09-04] MEDS: VANCOMYCIN 1,500 MG in SODIUM CHLORIDE 0.9% 250 ML IVPB SCH (16:11)
--- NOTE | 2018-09-04 21:52 | PN ---
PROGRESS NOTE DATE OF SERVICE: 09/04/2018 PRESENTING COMPLAINT: Left leg cellulitis. INTERVAL HISTORY: This patient with multiple problems presented with left leg cellulitis and also COPD exacerbation. Patient is feeling a bit better today. Because of the nasal cannula, she had some nasal bleeding. INR was on the higher side; hence she was given some vitamin K. Left foot is in a dressing. Did tolerate some diet. REVIEW OF SYSTEMS: Done for constitutional, cardiovascular, GI, pulmonary; relevant findings as above. CURRENT MEDICATIONS: Reviewed. They include: 1. DuoNeb. 2. Oral Lasix. 3. IV vancomycin. 4. IV Zosyn. PHYSICAL EXAMINATION: Temperature 97, pulse 107, respiration 18, blood pressure 87/46, pulse ox 92% on 3 L. GENERAL APPEARANCE: Sitting up. Tired. EYES: Pupils equal. Conjunctivae normal. HEENT: External appearance of nose and ears normal. Oral cavity normal. Some blood in the nasal cavity. NECK: JVD unable to assess. Mass not palpable. RESPIRATORY: Effort increased. LUNGS: Decreased breath sounds. Prolonged expiration. CARDIOVASCULAR: Heart sounds irregular. Some edema present. ABDOMEN: Soft, nontender. Liver and spleen not palpable. PSYCHIATRY: Alert and oriented x3. Mood and affect normal. INVESTIGATIONS: White count 14.4, hemoglobin 11, INR 6.4, potassium 4.3, BUN 50, creatinine 1.03. Free T4 is up TSH is low. Two-D echo shows moderate to severe tricuspid regurgitation, severe pulmonary hypertension, moderate pulmonic regurgitation. ASSESSMENT: 1. Acute left foot wound with cellulitis that was draining. 2. Acute chronic obstructive pulmonary disease exacerbation in an ex-smoker who is on steroids and chronically oxygen-dependent. 3. Chronic hypoxic respiratory failure, on 3 L oxygen at home from underlying chronic obstructive pulmonary disease. 4. Essential hypertension. 5. Chronic pulmonary embolism, chronically on Coumadin. 6. Acute on chronic cor pulmonale, probably a combination of chronic pulmonary embolism and chronic obstructive pulmonary disease. 7. Coumadin toxicity with epistaxis. Vitamin K was given. 8. Genetic blood clotting disorder, though patient does not remember. 9. Anxiety not otherwise specified. 10.Obesity; body mass index 36.8. 11.Persistent atrial fibrillation. Heart rate was uncontrolled on presentation. PLAN: Continue with IV antibiotics, Zosyn, vancomycin. Patient is also on Lasix. Patient's wound cultures are pending. Care was discussed with the patient. Questions were answered. Will follow. MMODL / IJN: [id number] /
[2018-09-04 22:39] LABS: INR 1.7 (<1.2); Prothrombin Time 15.4 sec (9.0-12.0)
[2018-09-04 22:52] LABS: HCT 34.4 % (34.0-46.0); HGB 10.5 gm/dL (11.4-16.0); Hypochromasia Moderate; MCH 29.6 pg (25.0-35.0); MCHC 30.6 g/dL (31.0-37.0); MCV 96.7 fL (80.0-100.0); Mean Platelet Volume 7.4; RBC 3.56 m/uL (3.80-5.40); RDW 13.7 % (11.5-15.5); WBC 12.9 k/uL (3.8-10.6)
[2018-09-04 23:30] LABS: Band Neutrophils % 9 %; Lymphocytes # (M) 1.29 k/uL (1.0-4.8); Monocytes # (M) 0.39 k/uL (0-1.0); Neutrophils % (M) 78 %; Nucleated Red Blood Cells 0 /100 WBC (0-0); Total Cells Counted 100
[2018-09-04 23:31] LABS: Platelet Count 99 k/uL (150-450); Polychromasia Present
[2018-09-05] MEDS: PIPERACILLIN-TAZOBACTAM 3.375 GM in DEXTROSE/WATER 1 50ML.BAG IVPB SCH ×3 (00:01→16:59)
[2018-09-05] MEDS: HYDROcodone/APAP 10-325MG 1 EACH TAB PO PRN ×4 (01:23→21:20)
[2018-09-05] MEDS: IPRATROPIUM-ALBUTEROL 3 ML NEB INHALATION SCH ×5 (04:19→20:17)
[2018-09-05] MEDS: SODIUM CHLORIDE 0.9% 1,000 ML IV SCH ×3 (06:35→21:17)
[2018-09-05 07:00] LABS: Calcium 8.1 mg/dL (8.4-10.2)
[2018-09-05] MEDS ORDERED: VANCOMYCIN TROUGH DUE 1 EACH MISC MISCELLANE ONE (07:00)
[2018-09-05] MEDS: VANCOMYCIN 1,500 MG in SODIUM CHLORIDE 0.9% 250 ML IVPB SCH (08:44)
[2018-09-05] MEDS: FUROSEMIDE 40 MG TAB PO SCH ×2 (08:44→16:59)
[2018-09-05] MEDS: HYDROCHLOROTHIAZIDE 12.5 MG CAP PO SCH (08:44)
[2018-09-05] MEDS: VALSARTAN 160 MG TAB PO SCH (08:45)
[2018-09-05] MEDS: METOPROLOL SUCCINATE (ER) 50 MG TAB.ER.24H PO SCH (08:45)
[2018-09-05] MEDS: predniSONE 10 MG TAB PO SCH (08:45)
[2018-09-05] MEDS: NON-FORMULARY DRUG (Mometasone/Formoterol [Dulera 200 Mcg/5 Mcg Inhaler] 2 PUFF) INHALATION SCH ×2 (09:11→20:26)
--- NOTE | 2018-09-05 13:28 | P.PN ---
Subjective Progress Note Date: 09/05/18 This is a 63-year-old lady with history of DVT, hypertension, COPD. She presented to the hospital with symptoms of not feeling well, fatigue, tiredness and shortness of breath. She is also developing swelling and erythema with induration of the left leg. She initially presented to Hospital and was transferred here to [facility] because of atrial fibrillation. She has left leg cellulitis is being treated with antibiotics. She is currently on Coumadin because of history of DVT. She is maintaining atrial fibrillation. Heart rate is better controlled today she is currently on metoprolol succinate 50 mg daily. Echocardiogram showed an ejection fraction of 55-60% with RV mildly enlarged, and moderately impaired as well as severe pulmonary hypertension. INR on admission was 6.7 and was 1.7 this morning. She's had a decrease in her hemoglobin as well and stool was positive for occult blood. Other labs show a BUN of 67 and creatinine 1.15. Upon examination, patient mostly complains of leg and back discomfort. She is sitting up on the side of the bed she does not appear to be in any respiratory distress. She is requesting pain medication. Objective - Vital Signs Vital signs: Vital Signs Temp 97.3 F L 09/05/18 11:33 Pulse 104 H 09/05/18 12:01 Resp 20 09/05/18 11:33 BP 100/62 09/05/18 11:33 Pulse Ox 98 09/05/18 11:33 Intake & Output 09/04/18 09/05/18 09/05/18 18:59 06:59 18:59 Intake Total 500 1080 Output Total 600 Balance -100 1080 Weight 100.7 kg Intake: IV 20 Invasive Line 2 20 Intake, IV Titration 1080 Amount Sodium Chloride 0.9% 1, 1080 000 ml @ 120 mls/hr IV . Q8H20M [facility] Rx#:[id number] Oral 480 Output: Urine 600 Other: Voiding Method Bedside Commode Bedside Commode # Voids 1 1 # Bowel Movements 0 1 - Exam PHYSICAL EXAMINATION: HEENT: Head is atraumatic, normocephalic. Pupils equal, round. Neck is supple. There is no elevated jugular venous pressure. HEART EXAMINATION: Heart sounds irregularly irregular, S1 and S2 normal. No murmur or gallop heard. CHEST EXAMINATION: Lungs reveal diminished air entry bilaterally. No chest wall tenderness is noted on palpation or with deep breathing. ABDOMEN: Soft, nontender. Bowel sounds are heard. No organomegaly noted. EXTREMITIES: Reveals left leg edema with erythema and cellulitis, Liam wrap in place. NEUROLOGIC patient is awake, alert and oriented x3. . - Labs CBC & Chem 7: 09/04/18 22:19 09/05/18 06:24 Labs: Abnormal Lab Results - Last 24 Hours (Table) 09/04/18 09/04/18 09/04/18 Range/Units 19:45 22:19 22:19 WBC 12.9 H (3.8-10.6) k/uL RBC 3.56 L (3.80-5.40) m/uL Hgb 10.5 L (11.4-16.0) gm/dL MCHC 30.6 L (31.0-37.0) g/dL Plt Count 99 L (150-450) k/uL Neutrophils # (Manual) 11.20 H (1.3-7.7) k/uL PT 15.4 H (9.0-12.0) sec INR 1.7 H (<1.2) BUN (7-17) mg/dL Creatinine (0.52-1.04) mg/dL Glucose (74-99) mg/dL Calcium (8.4-10.2) mg/dL Stool Occult Blood Positive H (Negative) 09/05/18 Range/Units 06:24 WBC (3.8-10.6) k/uL RBC (3.80-5.40) m/uL Hgb (11.4-16.0) gm/dL MCHC (31.0-37.0) g/dL Plt Count (150-450) k/uL Neutrophils # (Manual) (1.3-7.7) k/uL PT (9.0-12.0) sec INR (<1.2) BUN 67 H (7-17) mg/dL Creatinine 1.15 H (0.52-1.04) mg/dL Glucose 118 H (74-99) mg/dL Calcium 8.1 L (8.4-10.2) mg/dL Stool Occult Blood (Negative) Microbiology - Last 24 Hours (Table) 09/03/18 23:30 Gram Stain - Preliminary Leg - Left Wound Culture - Preliminary Gram Neg Bacilli 09/02/18 18:05 Blood Culture - Preliminary Blood No Growth after 48 hours 09/03/18 23:30 Anaerobic Culture - Preliminary Leg - Left Assessment and Plan Assessment: #1 cellulitis with left leg edema #2 persistent atrial fibrillation #3 coagulopathy with hemoglobin drop and stool positive for occult blood Plan: From cardiology perspective, continue to hold Coumadin until evaluated by GI. Continue current dose of metoprolol succinate. We'll continue to follow the patient right further recommendations accordingly. The above dictated assessment and findings were discussed with signing physician. The impression and plan of care have been directed as dictated. Yamini Perez, Nurse Practitioner, acting as scribe for signing physician.
--- NOTE | 2018-09-05 14:10 | P.PN ---
Subjective Progress Note Date: 09/05/18 Principal diagnosis: Left lower extremity cellulitis, COPD, stable A 63-year-old female patient with known history of COPD and chronic hypoxic respiratory failure maintained on a combination of Dulera and Spiriva on outpatient basis regarding her COPD. The patient also has had previous history of recurrent DVT and pulmonary embolism and the patient has been on long-term anticoagulation with warfarin. She also has an IVC filter in place. The patient came into the hospital because of increased swelling and pain and redness in her left lower extremity. Apparently this has been going on for the past few days and the patient presented to the hospital because of increasing pain and erythema in the left leg. She was also having some progressive weakness and she was found to be in atrial fibrillation with rapid ventricular response and the patient was started on Cardizem drip at the time of admission. Cardiology consultation is also be obtained. No cough or sputum production. No hemoptysis or pleurisy. No altered mentation. No nausea or vomiting no worsening of shortness of breath and her dyspnea is at his baseline for now. The patient came into the hospital and the patient was diagnosed having cellulitis of the left lower extremity. She was seen by infectious disease. The leg is wrapped for now. She was started on a combination of antibiotics including Zosyn and vancomycin. Chest x-ray shows borderline cardiomegaly without any acute cardiopulmonary process. The echocardiogram was also repeated and the patient was found to have mild concentric left ventricular hypertrophy, EF around 55-60%, mild aortic sclerosis, severe pulmonary hypertension which is probably related to her chronic lung disease. The patient 's INR is at 6.4 today and this is obviously toxic without any indication for bleeding and the patient will be given 2 mg of vitamin K. Renal function is stable. On 09/05/2018 patient seen again in follow-up in the selective care unit. She is resting comfortably in bed, denies any distress, denies any shortness of breath, chest congestion or wheezing. Her COPD seems to be stable. Lung sounds are essentially clear to auscultation, she has occasional cough. Chest x -ray was negative for any acute findings. Her creatinine is increased to 1.15, and BUN is 67. Electrolytes are normal, INR is down to 1.7. Pulse ox on 3 L per nasal cannula 98%. Left leg wound cultures are positive for gram-negative bacilli. Patient is covered with a combination of Zosyn and vancomycin. Objective - Vital Signs Vital signs: Vital Signs Temp 97.3 F L 09/05/18 11:33 Pulse 104 H 09/05/18 12:01 Resp 20 09/05/18 11:33 BP 100/62 09/05/18 11:33 Pulse Ox 98 09/05/18 11:33 Intake & Output 09/04/18 09/05/18 09/05/18 18:59 06:59 18:59 Intake Total 500 1080 Output Total 600 Balance -100 1080 Weight 100.7 kg Intake: IV 20 Invasive Line 2 20 Intake, IV Titration 1080 Amount Sodium Chloride 0.9% 1, 1080 000 ml @ 120 mls/hr IV . Q8H20M [facility] Rx#:[id number] Oral 480 Output: Urine 600 Other: Voiding Method Bedside Commode Bedside Commode # Voids 1 1 # Bowel Movements 0 1 - Exam Gen. appearance the patient is calm, not in acute respiratory distress. Slightly tachycardic no significant tachypnea this point. She is not using excessive muscle breathing. Head exam was generally normal. There was no scleral icterus or corneal arcus. Mucous membranes were moist. Neck is supple and the patient is no JVDs no goiter or neck masses. She has or mental conditions. Lung sounds are clear, no wheezes, no rhonchi no rales. Cardiac exam revealed the PMI to be normally situated and sized. The rhythm was regular and no extrasystoles were noted during several minutes of auscultation. The first and second heart sounds were normal and physiologic splitting of the second heart sound was noted. There were no murmurs, rubs, clicks, or gallops.Abdominal exam revealed normal bowel sounds. The abdomen was soft, non- tender, and without masses, organomegaly, or appreciable enlargement of the abdominal aorta.Extremities: The upper extremities have excellent pulses they are symmetric, no significant petechiae or telangiectasia. No splinter hemorrhages were noted. The lower extremities have evidence of the bilateral lower extremity edema left considerably greater than the right. Left leg has evidence of the circumferential erythema that is present from the mid tibia onto the foot, there is evidence of some scant drainage it's on the dressing. It is serous in nature not grossly purulent. The area is tender to touch and has distinct warmth.. Neurologically the patient is awake and alert and there is no focal neurological deficit at this point - Labs CBC & Chem 7: 09/04/18 22:19 09/05/18 06:24 Labs: Abnormal Lab Results - Last 24 Hours (Table) 09/04/18 09/04/18 09/04/18 Range/Units 19:45 22:19 22:19 WBC 12.9 H (3.8-10.6) k/uL RBC 3.56 L (3.80-5.40) m/uL Hgb 10.5 L (11.4-16.0) gm/dL MCHC 30.6 L (31.0-37.0) g/dL Plt Count 99 L (150-450) k/uL Neutrophils # (Manual) 11.20 H (1.3-7.7) k/uL PT 15.4 H (9.0-12.0) sec INR 1.7 H (<1.2) BUN (7-17) mg/dL Creatinine (0.52-1.04) mg/dL Glucose (74-99) mg/dL Calcium (8.4-10.2) mg/dL Stool Occult Blood Positive H (Negative) 09/05/18 Range/Units 06:24 WBC (3.8-10.6) k/uL RBC (3.80-5.40) m/uL Hgb (11.4-16.0) gm/dL MCHC (31.0-37.0) g/dL Plt Count (150-450) k/uL Neutrophils # (Manual) (1.3-7.7) k/uL PT (9.0-12.0) sec INR (<1.2) BUN 67 H (7-17) mg/dL Creatinine 1.15 H (0.52-1.04) mg/dL Glucose 118 H (74-99) mg/dL Calcium 8.1 L (8.4-10.2) mg/dL Stool Occult Blood (Negative) Microbiology - Last 24 Hours (Table) 09/03/18 23:30 Gram Stain - Preliminary Leg - Left Wound Culture - Preliminary Gram Neg Bacilli 09/02/18 18:05 Blood Culture - Preliminary Blood No Growth after 48 hours 09/03/18 23:30 Anaerobic Culture - Preliminary Leg - Left Assessment and Plan Plan: 1 left lower extremity cellulitis. The patient has chronic edema related to previous DVTs of the left lower extremity. The patient came with increasing pain and erythema and drainage from the skin surface and the findings were consistent with a left lower extremity cellulitis in a patient is currently on a combination of Zosyn and vancomycin. The patient is also receiving local wound care with Silvadene wrap and an Liam wrap knee-high. 2 COPD, severe yet stable and the patient has no signs of exacerbation maintained on a combination of Dulera and Spiriva on outpatient basis 3 chronic hypoxic respiratory failure secondary to above 4 history of recurrent DVTs and pulmonary embolism maintained on lifelong articulation with warfarin. Patient has an IVC filter in place. 5 Coumadin toxicity without any signs of bleeding 6 degenerative arthritis 7 chronic smoker 8 hypertension 9 atrial fibrillation,, likely of a new onset. 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 Echocardiogram showing a preserved LV function. Patient is on long- term anticoagulation with warfarin Plan: Continue nebulized bronchodilators, remains stable from pulmonary standpoint, lung sounds are essentially clear on today's exam. No wheezes, no rhonchi or rales. Continue on Zosyn and vancomycin, final wound cultures are in progress, Gram stain showed gram-negative bacilli. Encourage deep breathing and coughing , encourage patient sitting up in the chair. Continue to follow I performed a history & physical examination of the patient and discussed their management with my nurse practitioner, Leena Booker. I reviewed the nurse practitioner's note and agree with the documented findings and plan of care. Lung sounds are clear. The findings and the impression was discussed with the patient. I attest to the documentation by the nurse practitioner. Time with Patient: Less than 30
--- NOTE | 2018-09-05 21:14 | PN ---
PROGRESS NOTE DATE OF SERVICE: 09/05/18. PRESENTING COMPLAINT: Left leg cellulitis. INTERVAL HISTORY: The patient presented with left leg cellulitis, COPD exacerbation, acute cor pulmonale exacerbation, and also had supratherapeutic INR with some epistaxis. The patient does feel tired and run down, not much of an appetite, having pain in the leg side, getting antibiotics. Lying in bed. Slight nausea. Just feels run down. Short of breath is present. No chest pain. REVIEW OF SYSTEMS: Done for constitutional, cardiovascular, GI, pulmonary; relevant findings as above. CURRENT MEDICATIONS: Reviewed that include DuoNeb, p.o. Lasix, IV Zosyn, Silvadene cream, IV vancomycin. PHYSICAL EXAMINATION: Temperature 98, pulse 79, respiratory 18, blood pressure 91/57, pulse ox 98% on 3 L. GENERAL APPEARANCE: Lying in bed, tired appearing. EYES: Pupils equal. Conjunctivae normal. HEENT: External appearance of nose and ears normal. Oral cavity normal. NECK: JVD unable to assess. Mass not palpable. RESPIRATORY: Effort increased. Lungs, decreased breath sounds. Prolonged expiration. CARDIOVASCULAR: Heart sounds irregular. Some edema present. ABDOMEN: Soft, nontender. Liver and spleen not palpable. PSYCHIATRY: Alert, oriented x3. Mood and affect feels a bit low. INVESTIGATIONS: Repeat INR is 1.7. BUN 67, creatinine 1.15. ASSESSMENT: 1. Acute left foot wound with cellulitis, slow to respond. 2. Acute chronic obstructive pulmonary disease exacerbation in an ex-smoker who is steroid and oxygen dependent. 3. Chronic hypoxic respiratory failure on 3 L oxygen at home from underlying chronic obstructive pulmonary disease. 4. Essential hypertension. 5. Chronic pulmonary embolism chronically on Coumadin. 6. Acute on chronic cor pulmonale, probably combination of chronic obstructive pulmonary disease and . 7. Coumadin toxicity with epistaxis status post vitamin K. 8. Genetic blood causing disorder though. The patient does not remember. 9. Anxiety, not otherwise specified. 10.Obesity; BMI 36.8. 11.Persistent atrial fibrillation. Heart rate was uncontrolled on presentation. PLAN: Continue with antibiotics. The patient's oral intake is not good. The patient is slow to respond. Continue current medication and treatment plan. The patient's wound culture is growing gram-negative bacilli. Overall prognosis is guarded. MMODL / IJN: [id number] /
--- NOTE | 2018-09-06 00:18 | P.PN ---
Subjective Progress Note Date: 09/05/18 63-year-old female has a history of obesity, coronary artery disease, atrial fibrillation, history of deep venous thrombosis no known clotting disorder chronically on Coumadin therapy. She presents to Hospital from outside facility for further evaluation of her atrial fibrillation in the swelling erythema and infection to the left lower extremity. The patient relates for several days before coming Hospital she's having increasing pain swelling and erythema to the left leg. She was also developing some weeping. She's had this occasionally over the years with the leg will become more swollen and she then seeks medical attention. She also relates that in the area of her thyroid gland there's been some swelling in she's been able to feel some nodularity in that area, she relates that it does seem to affect her swallowing minimally with a fullness sensation. She denies choking or difficulty with breathing due to sensation of airway closing. She may have had a fever certainly had chill and felt cold. It appears she also is having some rigors the day before she sought care. Since coming to hospital and having atrial fibrillation controlled she's feeling better. But does have significant leukocytosis and the infectious diseases was requested. 09/05/2018 upon entering the room the patient has had a bowel movement. Nursing staff are finishing up. The patient is overtly angry. Upon questioning what is the difficulty. She relates that we are lying to her. She does not understand why she find out from the nurse that she has MRSA. At that time I discussed that current cultures show evidence of the gram-negative infection, I am not aware of current MRSA infection. It is possible this is from cultures from an outside facility. The patient was uncooperative and rude. Objective - Vital Signs Vital signs: Vital Signs Temp 98 F 09/05/18 16:00 Pulse 108 H 09/05/18 20:27 Resp 18 09/05/18 16:00 BP 91/57 09/05/18 16:00 Pulse Ox 100 09/05/18 20:17 Intake & Output 09/05/18 09/05/18 09/06/18 06:59 18:59 06:59 Intake Total 1080 240 Balance 1080 240 Weight 100.7 kg Intake: Intake, IV Titration 1080 Amount Sodium Chloride 0.9% 1, 1080 000 ml @ 120 mls/hr IV . Q8H20M [facility] Rx#:[id number] Oral 240 Other: Voiding Method Bedside Commode # Voids 1 # Bowel Movements 1 - Exam Exam is quite limited in that she refused to let me examine the leg. - Labs CBC & Chem 7: 09/04/18 22:19 09/05/18 06:24 Labs: Abnormal Lab Results - Last 24 Hours (Table) 09/05/18 Range/Units 06:24 BUN 67 H (7-17) mg/dL Creatinine 1.15 H (0.52-1.04) mg/dL Glucose 118 H (74-99) mg/dL Calcium 8.1 L (8.4-10.2) mg/dL Microbiology - Last 24 Hours (Table) 09/02/18 18:05 Blood Culture - Preliminary Blood No Growth after 72 hours 09/03/18 23:30 Gram Stain - Preliminary Leg - Left Wound Culture - Preliminary Gram Neg Bacilli Laboratory Results WBC 12.9 k/uL (3.8-10.6) H 09/04/18 22:19 RBC 3.56 m/uL (3.80-5.40) L 09/04/18 22:19 Hgb 10.5 gm/dL (11.4-16.0) L 09/04/18 22:19 Hct 34.4 % (34.0-46.0) 09/04/18 22:19 MCV 96.7 fL (80.0-100.0) 09/04/18 22:19 MCH 29.6 pg (25.0-35.0) 09/04/18 22:19 MCHC 30.6 g/dL (31.0-37.0) L 09/04/18 22:19 RDW 13.7 % (11.5-15.5) 09/04/18 22:19 Plt Count 99 k/uL (150-450) L 09/04/18 22:19 Neutrophils % 83 % 09/04/18 06:18 Neutrophils % (Manual) 78 % 09/04/18 22:19 Band Neutrophils % 9 % 09/04/18 22:19 Lymphocytes % 10 % 09/04/18 06:18 Lymphocytes % (Manual) 10 % 09/04/18 22:19 Monocytes % 5 % 09/04/18 06:18 Monocytes % (Manual) 3 % 09/04/18 22:19 Eosinophils % 0 % 09/04/18 06:18 Basophils % 0 % 09/04/18 06:18 Neutrophils # 12.0 k/uL (1.3-7.7) H 09/04/18 06:18 Neutrophils # (Manual) 11.20 k/uL (1.3-7.7) H 09/04/18 22:19 Lymphocytes # 1.4 k/uL (1.0-4.8) 09/04/18 06:18 Lymphocytes # (Manual) 1.29 k/uL (1.0-4.8) 09/04/18 22:19 Monocytes # 0.7 k/uL (0-1.0) 09/04/18 06:18 Monocytes # (Manual) 0.39 k/uL (0-1.0) 09/04/18 22:19 Eosinophils # 0.0 k/uL (0-0.7) 09/04/18 06:18 Basophils # 0.0 k/uL (0-0.2) 09/04/18 06:18 Nucleated RBCs 0 /100 WBC (0-0) 09/04/18 22:19 Polychromasia Present 09/04/18 22:19 Hypochromasia Moderate 09/04/18 22:19 PT 15.4 sec (9.0-12.0) H 09/04/18 22:19 INR 1.7 (<1.2) H 09/04/18 22:19 Sodium 137 mmol/L (137-145) 09/05/18 06:24 Potassium 4.0 mmol/L (3.5-5.1) 09/05/18 06:24 Chloride 107 mmol/L (98-107) 09/05/18 06:24 Carbon Dioxide 23 mmol/L (22-30) 09/05/18 06:24 Anion Gap 7 mmol/L 09/05/18 06:24 BUN 67 mg/dL (7-17) H 09/05/18 06:24 Creatinine 1.15 mg/dL (0.52-1.04) H 09/05/18 06:24 Est GFR (CKD-EPI)AfAm 58 (>60 ml/min/1.73 sqM) 09/05/18 06:24 Est GFR (CKD-EPI)NonAf 50 (>60 ml/min/1.73 sqM) 09/05/18 06:24 Glucose 118 mg/dL (74-99) H 09/05/18 06:24 Plasma Lactic Acid Leonardo 1.3 mmol/L (0.7-2.0) 09/02/18 18:05 Calcium 8.1 mg/dL (8.4-10.2) L 09/05/18 06:24 TSH <0.015 mIU/L (0.465-4.680) L 09/03/18 06:46 Free T4 3.12 ng/dL (0.78-2.19) H 09/04/18 06:18 Free T3 pg/mL 8.4 pg/ml (2.8-5.3) H 09/04/18:18 Stool Occult Blood Positive (Negative) H 09/04/18 19:45 Vancomycin Trough 16.6 ug/mL 09/05/18 06:24 Microbiology 09/02/18 18:05 Blood Blood Culture - Preliminary No Growth after 72 hours 09/03/18 23:30 Leg - Left Gram Stain - Preliminary 09/03/18 23:30 Leg - Left Wound Culture - Preliminary Gram Neg Bacilli 09/03/18 23:30 Leg - Left Anaerobic Culture - Preliminary Assessment and Plan (1) Cellulitis of left lower extremity Narrative/Plan: 63-year-old female with obesity was a known history of deep venous thrombosis or pulmonary embolus was on chronic anticoagulation therapy presents to outside hospital with shortness of breath and increasing pain and swelling erythema and drainage from her left leg. His history of prior bouts of cellulitis of the left leg and a history of extremity edema after her DVT. With evidence of the cellulitis and atrial fibrillation with rapid ventricular response she was transferred to our facility and has been stabilized. With Cardizem, fluids and antibiotic therapy she is ready feeling somewhat better. The left leg however is still erythematous uncomfortable and draining. There is evidence of the leukocytosis on the basis of the cellulitis to the left leg. Local wound care with Silvadene wrap will be requested an Liam wrap from the foot to the knee. Elevated a rest as best as she can. She does like to sit up with her legs in dependent position because of her obesity which does worsen her edema. Hopefully she will elevate her legs a bit further. She does not like the food but we suggest a high protein intake will be helpful for healing. Multivitamin without vitamin K is also suggested for healing. Cardiology is following regarding her atrial fibrillation and her edema. Current cultures revealed evidence of gram-negative bacilli. Zosyn and vancomycin is being utilized for now. Outside culture to be reviewed if available. Will further help direct antibiotic therapy. Unclear if the patient will allow further evaluation. Current Visit: Yes Status: Acute Code(s): L03.116 - CELLULITIS OF LEFT LOWER LIMB SNOMED Code(s): 974206317 (2) Atrial fibrillation with rapid ventricular response Current Visit: Yes Status: Acute Code(s): I48.91 - UNSPECIFIED ATRIAL FIBRILLATION SNOMED Code(s): 287298702025925 (3) History of deep venous thrombosis in adulthood Current Visit: Yes Status: Acute Code(s): Z86.718 - PERSONAL HISTORY OF OTHER VENOUS THROMBOSIS AND EMBOLISM SNOMED Code(s): 302816443
[2018-09-06] MEDS: VANCOMYCIN 1,500 MG in SODIUM CHLORIDE 0.9% 250 ML IVPB SCH ×2 (01:05→15:19)
[2018-09-06] MEDS: IPRATROPIUM-ALBUTEROL 3 ML NEB INHALATION SCH ×6 (01:34→20:36)
[2018-09-06] MEDS: HYDROcodone/APAP 10-325MG 1 EACH TAB PO PRN ×6 (01:57→21:28)
[2018-09-06] MEDS: SODIUM CHLORIDE 0.9% 1,000 ML IV SCH ×3 (05:51→23:08)
[2018-09-06] MEDS: NON-FORMULARY DRUG (Mometasone/Formoterol [Dulera 200 Mcg/5 Mcg Inhaler] 2 PUFF) INHALATION SCH ×2 (07:34→21:16)
[2018-09-06 07:51] LABS: Calcium 8.4 mg/dL (8.4-10.2); Potassium 4.5 mmol/L (3.5-5.1)
[2018-09-06] MEDS: PIPERACILLIN-TAZOBACTAM 3.375 GM in DEXTROSE/WATER 1 50ML.BAG IVPB SCH ×4 (07:59→23:12)
[2018-09-06] MEDS: VALSARTAN 160 MG TAB PO SCH (07:59)
[2018-09-06] MEDS: METOPROLOL SUCCINATE (ER) 50 MG TAB.ER.24H PO SCH (08:00)
[2018-09-06] MEDS: predniSONE 10 MG TAB PO SCH (08:00)
[2018-09-06] MEDS: FUROSEMIDE 40 MG TAB PO SCH ×2 (08:00→18:14)
[2018-09-06] MEDS: HYDROCHLOROTHIAZIDE 12.5 MG CAP PO SCH (08:00)
[2018-09-06 10:48] LABS: HCT 32.2 % (34.0-46.0); HGB 10.5 gm/dL (11.4-16.0); Hypochromasia Moderate; MCH 30.8 pg (25.0-35.0); MCHC 32.6 g/dL (31.0-37.0); MCV 94.7 fL (80.0-100.0); Mean Platelet Volume 7.7; Platelet Count 119 k/uL (150-450); RBC 3.41 m/uL (3.80-5.40); RDW 13.8 % (11.5-15.5); WBC 9.5 k/uL (3.8-10.6)
--- NOTE | 2018-09-06 11:14 | P.PN ---
Subjective Progress Note Date: 09/06/18 This is a 63-year-old female with history of DVT, hypertension, COPD, who presented to the hospital with symptoms of generalized malaise and fatigue with associated shortness of breath. Patient also noted some significant edema in her bilateral extremities. Patient was complaining of significant pain in her left leg, with evidence of cellulitis. She is currently on antibiotics. At the time of my examination this morning, her main complaint is pain in her left leg. She also feels extremely fatigued. Breathing is overall stable. She had an echocardiogram with Doppler study performed which revealed an ejection fraction of 55-60%, moderate to severe TR and severe pulmonary hypertension. INR today is 6.4. We will give the patient 5 mg of vitamin K today. Hold the Coumadin. White blood cell count 14.4, hemoglobin 11, platelet count 101. Sodium 136, calcium 4.3, BUN 50, creatinine 1.0. T4 0.015 , free T4 3.1 and free T3 8.4 09/06/2018 Patient was seen and examined this morning, complaining mostly of significant pain in her left lower extremity. Anticoagulation continues to be on hold because of positive heme in stool. Blood pressure 95/40 with a heart rate of 90 , 97% on 3 L of oxygen. White blood cell count 9.5, hemoglobin 10.5, platelet count 119. Sodium 140, potassium 4.5, BUN 68, creatinine 1.0. Objective - Vital Signs Vital signs: Vital Signs Temp 97.9 F 09/06/18 08:00 Pulse 106 H 09/06/18 08:00 Resp 18 09/06/18 08:00 BP 95/49 09/06/18 08:00 Pulse Ox 97 09/06/18 08:00 Intake & Output 09/05/18 09/06/18 09/06/18 18:59 06:59 18:59 Intake Total 240 200 Output Total 800 Balance 240 -800 200 Weight 105.2 kg Intake: Oral 240 200 Output: Urine 800 Other: Voiding Method Bedside Commode # Voids 1 - Exam PHYSICAL EXAMINATION: GENERAL: 63-year-old female in no acute distress at the time of my examination. HEENT: Head is atraumatic, normocephalic. Pupils equal, round. Sclera anicteric. Conjunctiva are clear. Mucous membranes of the mouth are moist. Neck is supple. There is no elevated jugular venous pressure. No carotid bruit is heard. HEART EXAMINATION: Heart S1 and S2 irregularly irregular systolic murmur is heard. CHEST EXAMINATION: Lungs are clear to auscultation and precussion. No chest wall tenderness is noted on palpation or with deep breathing. ABDOMEN: Soft, nontender. Bowel sounds are heard. No organomegaly noted. EXTREMITIES: 1+ peripheral pulses with3+ evidence of peripheral edema in her left lower extremity, considerable erythema and ecchymosis. One plus edema noted to the right lower extremity. NEUROLOGIC patient is awake, alert and oriented X3. . - Labs CBC & Chem 7: 09/06/18 06:41 09/06/18 06:41 Labs: Abnormal Lab Results - Last 24 Hours (Table) 09/06/18 09/06/18 Range/Units 06:41 06:41 RBC 3.41 L (3.80-5.40) m/uL Hgb 10.5 L (11.4-16.0) gm/dL Hct 32.2 L (34.0-46.0) % Plt Count 119 L (150-450) k/uL Chloride 108 H (98-107) mmol/L BUN 68 H (7-17) mg/dL Creatinine 1.08 H (0.52-1.04) mg/dL Glucose 106 H (74-99) mg/dL Microbiology - Last 24 Hours (Table) 09/02/18 18:05 Blood Culture - Preliminary Blood No Growth after 72 hours 09/03/18 23:30 Gram Stain - Preliminary Leg - Left Wound Culture - Preliminary Gram Neg Bacilli Assessment and Plan Plan: Assessment and plan #1 acute left foot wounds with cellulitis. #2 COPD exacerbation #3 hypertension #4 chronic pulmonary embolism on Coumadin, #5 hyperthyroidism. #6 anemia with a positive heme in stool Plan We will continue to hold the patient's Coumadin until GI evaluation is completed. Continue other current medications. DNP note has been reviewed, I agree with a documented findings and plan of care. Patient was seen and examined.
--- NOTE | 2018-09-06 15:13 | P.PN ---
Subjective Progress Note Date: 09/06/18 Principal diagnosis: Left lower extremity cellulitis A 63-year-old female patient with known history of COPD and chronic hypoxic respiratory failure maintained on a combination of Dulera and Spiriva on outpatient basis regarding her COPD. The patient also has had previous history of recurrent DVT and pulmonary embolism and the patient has been on long-term anticoagulation with warfarin. She also has an IVC filter in place. The patient came into the hospital because of increased swelling and pain and redness in her left lower extremity. Apparently this has been going on for the past few days and the patient presented to the hospital because of increasing pain and erythema in the left leg. She was also having some progressive weakness and she was found to be in atrial fibrillation with rapid ventricular response and the patient was started on Cardizem drip at the time of admission. Cardiology consultation is also be obtained. No cough or sputum production. No hemoptysis or pleurisy. No altered mentation. No nausea or vomiting no worsening of shortness of breath and her dyspnea is at his baseline for now. The patient came into the hospital and the patient was diagnosed having cellulitis of the left lower extremity. She was seen by infectious disease. The leg is wrapped for now. She was started on a combination of antibiotics including Zosyn and vancomycin. Chest x-ray shows borderline cardiomegaly without any acute cardiopulmonary process. The echocardiogram was also repeated and the patient was found to have mild concentric left ventricular hypertrophy, EF around 55-60%, mild aortic sclerosis, severe pulmonary hypertension which is probably related to her chronic lung disease. The patient 's INR is at 6.4 today and this is obviously toxic without any indication for bleeding and the patient will be given 2 mg of vitamin K. Renal function is stable. On 09/05/2018 patient seen again in follow-up in the selective care unit. She is resting comfortably in bed, denies any distress, denies any shortness of breath, chest congestion or wheezing. Her COPD seems to be stable. Lung sounds are essentially clear to auscultation, she has occasional cough. Chest x -ray was negative for any acute findings. Her creatinine is increased to 1.15, and BUN is 67. Electrolytes are normal, INR is down to 1.7. Pulse ox on 3 L per nasal cannula 98%. Left leg wound cultures are positive for gram-negative bacilli. Patient is covered with a combination of Zosyn and vancomycin. The patient is seen again today 09/06/2018 in follow-up on the selective care unit. She is awake and alert. She has some mild distress secondary to left lower extremity pain is worsening. Markings do not reveal any increasing and the cellulitis but the skin appears darker. Peripheral pulses are intact. Culture was positive for Acinetobacter Erji and she is being followed by infectious disease. She is currently on 07 and vancomycin. She denies any worsening shortness of breath, cough or congestion. Maintaining O2 saturations in the upper 90s on 3 L/m per nasal cannula. She remains on Dulera and DuoNeb' s. She's been afebrile. White count 9.5. Hemoglobin 10.5. Creat 1.08. Objective - Vital Signs Vital signs: Vital Signs Temp 97.9 F 09/06/18 08:00 Pulse 104 H 09/06/18 12:07 Resp 18 09/06/18 08:00 BP 95/49 09/06/18 08:00 Pulse Ox 97 09/06/18 08:00 Intake & Output 09/05/18 09/06/18 09/06/18 18:59 06:59 18:59 Intake Total 240 200 Output Total 800 Balance 240 -800 200 Weight 105.2 kg Intake: Oral 240 200 Output: Urine 800 Other: Voiding Method Bedside Commode # Voids 1 - Exam - Exam Gen. appearance the patient is calm, not in acute respiratory distress. Slightly tachycardic no significant tachypnea this point. She is not using excessive muscle breathing. Head exam was generally normal. There was no scleral icterus or corneal arcus. Mucous membranes were moist. Neck is supple and the patient is no JVDs no goiter or neck masses. She has or mental conditions. Lung sounds are clear, no wheezes, no rhonchi no rales. Cardiac exam revealed the PMI to be normally situated and sized. The rhythm was regular and no extrasystoles were noted during several minutes of auscultation. The first and second heart sounds were normal and physiologic splitting of the second heart sound was noted. There were no murmurs, rubs, clicks, or gallops.Abdominal exam revealed normal bowel sounds. The abdomen was soft, non- tender, and without masses, organomegaly, or appreciable enlargement of the abdominal aorta.Extremities: The upper extremities have excellent pulses they are symmetric, no significant petechiae or telangiectasia. No splinter hemorrhages were noted. The lower extremities have evidence of the bilateral lower extremity edema left considerably greater than the right. Left leg has evidence of the circumferential erythema that is present from the mid tibia onto the foot, there is evidence of some scant drainage it's on the dressing. It is serous in nature not grossly purulent. The area is tender to touch and has distinct warmth.. Neurologically the patient is awake and alert and there is no focal neurological deficit at this point - Labs CBC & Chem 7: 09/06/18 06:41 09/06/18 06:41 Labs: Abnormal Lab Results - Last 24 Hours (Table) 09/06/18 09/06/18 Range/Units 06:41 06:41 RBC 3.41 L (3.80-5.40) m/uL Hgb 10.5 L (11.4-16.0) gm/dL Hct 32.2 L (34.0-46.0) % Plt Count 119 L (150-450) k/uL Chloride 108 H (98-107) mmol/L BUN 68 H (7-17) mg/dL Creatinine 1.08 H (0.52-1.04) mg/dL Glucose 106 H (74-99) mg/dL Microbiology - Last 24 Hours (Table) 09/03/18 23:30 Anaerobic Culture - Preliminary Leg - Left 09/03/18 23:30 Gram Stain - Final Leg - Left Wound Culture - Final Acinetobacter reji/haemol 09/02/18 18:05 Blood Culture - Preliminary Blood No Growth after 72 hours Assessment and Plan Assessment: Impression: 1 left lower extremity cellulitis. The patient has chronic edema related to previous DVTs of the left lower extremity. The patient came with increasing pain and erythema and drainage from the skin surface and the findings were consistent with a left lower extremity cellulitis in a patient is currently on a combination of Zosyn and vancomycin. The patient is also receiving local wound care with Silvadene wrap and an Liam wrap knee-high. 2 COPD, severe yet stable and the patient has no signs of exacerbation maintained on a combination of Dulera and Spiriva on outpatient basis 3 chronic hypoxic respiratory failure secondary to above 4 history of recurrent DVTs and pulmonary embolism maintained on lifelong articulation with warfarin. Patient has an IVC filter in place. 5 Coumadin toxicity without any signs of bleeding 6 degenerative arthritis 7 chronic smoker 8 hypertension 9 atrial fibrillation,, likely of a new onset. Patient was tachycardic at time of admission and currently her rate is under better control and guide tour on the case. Echocardiogram showing a preserved LV function. Patient is on long- term anticoagulation with warfarin Plan: The patient was seen and evaluated by Dr. Martínez. She remains stable from the pulmonary standpoint. She does have ongoing pain in the left lower extremity. She is receiving Anderson alternating with Tylenol No. 3. She is currently on vancomycin and Zosyn. ID is on the case. We'll continue to follow. I, the cosigning physician, performed a history & physical examination of the patient. Lungs sounds are clear. Managed. Maintaining good O2 saturations in the 90s on 3 L/m per nasal cannula. I discussed the assessment and plan of care with my nurse practitioner, Nicolle Radford. I attest to the above note as dictated by her.
--- NOTE | 2018-09-06 22:21 | PN ---
PROGRESS NOTE DATE OF SERVICE: 09/06/2018. PRESENTING COMPLAINT: Left leg cellulitis. INTERVAL HISTORY: This patient presents with left leg cellulitis, COPD exacerbation, acute cor pulmonale and a supratherapeutic INR with some epistaxis. Did get some vitamin K. Patient is feeling a bit tired. Some pain in the left foot with cellulitis, not very keen to eat hospital food. REVIEW OF SYSTEMS: Done for constitutional, cardiovascular, GI, pulmonary; relevant findings as above. CURRENT MEDICATIONS: Reviewed that include p.o. Lasix, IV Zosyn, Silvadene cream, IV vancomycin. PHYSICAL EXAMINATION: VITAL SIGNS: Temperature 97.9. Pulse 106, respiratory 18, blood pressure 95/49, pulse ox 97% on 3 L. GENERAL APPEARANCE: Lying in bed, awake, tired-appearing. EYES: Pupils equal. Conjunctivae normal. HEENT: External appearance of nose and ears normal. Oral cavity normal. NECK JVD unable to assess. Mass not palpable. RESPIRATORY effort increased. LUNGS decreased breath sounds. CARDIOVASCULAR: Heart sounds irregular. Some edema is present. ABDOMEN: Soft, nontender. Liver and spleen not palpable. PSYCHIATRY: Alert and oriented x3. Mood and affect normal. EXTREMITIES: Cellulitis left lower extremity. Some breakdown in the skin. INVESTIGATIONS: White count 9.1, hemoglobin 10.5, potassium 4.5, BUN 68, creatinine 1.08. The patient's wound cultures growing Acinetobacter baumannii. ASSESSMENT: 1. Acute left foot wound with cellulitis growing Acinetobacter baumannii with clinical response. 2. Acute chronic obstructive pulmonary disease exacerbation in an ex-smoker with steroid and oxygen-dependent. 3. Chronic hypoxic respiratory failure on 3 L oxygen at home from underlying chronic obstructive pulmonary disease. 4. Essential hypertension. 5. Chronic pulmonary embolism chronically on Coumadin. 6. Acute on chronic cor pulmonale, probably a combination of chronic secondary to chronic obstructive pulmonary disease and pulmonary embolism. 7. Coumadin toxicity, epistaxis status post vitamin K. 8. blood clotting disorder. The patient does not remember. 9. Anxiety not otherwise specified. 10.Obesity; BMI 36.8. 11.Persistent atrial fibrillation, rate was uncontrolled on presentation. PLAN: Continue current medication and treatment plan. Care was discussed with the patient. Cellulitis is slowly but getting better. Care was discussed with the patient. Follow. MMODL / IJN: [id number] /
[2018-09-07] MEDS: IPRATROPIUM-ALBUTEROL 3 ML NEB INHALATION SCH ×6 (00:43→19:32)
[2018-09-07] MEDS: HYDROcodone/APAP 10-325MG 1 EACH TAB PO PRN ×6 (02:06→23:45)
[2018-09-07] MEDS: SODIUM CHLORIDE 0.9% 1,000 ML IV SCH ×2 (04:10→14:41)
[2018-09-07] MEDS: predniSONE 10 MG TAB PO SCH (07:22)
[2018-09-07] MEDS: METOPROLOL SUCCINATE (ER) 50 MG TAB.ER.24H PO SCH (07:22)
[2018-09-07] MEDS: HYDROCHLOROTHIAZIDE 12.5 MG CAP PO SCH (07:22)
[2018-09-07] MEDS: FUROSEMIDE 40 MG TAB PO SCH ×2 (07:22→17:50)
[2018-09-07] MEDS: VALSARTAN 160 MG TAB PO SCH (07:22)
[2018-09-07 07:24] LABS: Calcium 8.8 mg/dL (8.4-10.2); Potassium 5.3 mmol/L (3.5-5.1)
[2018-09-07] MEDS: VANCOMYCIN 1,500 MG in SODIUM CHLORIDE 0.9% 250 ML IVPB SCH (07:27)
--- NOTE | 2018-09-07 09:11 | US ---
EXAMINATION TYPE: US venous doppler duplex LE LT DATE OF EXAM: 09/07/2018 9:00 AM COMPARISON: NONE CLINICAL HISTORY: pain, hx of dvt. Left leg pain and swelling, patient states she has a history of mu ltiple DVT's, on blood thinners. SIDE PERFORMED: Left TECHNIQUE: The lower extremity deep venous system is examined utilizing real time linear array sonog audra with graded compression, doppler sonography and color-flow sonography. VESSELS IMAGED: External Iliac Vein (EIV) Common Femoral Vein Deep Femoral Vein Greater Saphenous Vein * Femoral Vein Popliteal Vein Small Saphenous Vein * Proximal Calf Veins (* superficial vessels) Difficult and limited study due to patient body habitus, unable to turn probe for sagittal images o f popliteal vein due to swelling and edema behind knee, only transverse images of popliteal vein done . Left Leg: Appears positive for DVT, unable to completely compress mid and distal femoral vein, good color flow seen at these levels, possible chronic changes, limited evaluation of popliteal vein as de scribed above. No popliteal fossa lesion is seen. IMPRESSION: THIS EXAMINATION IS POSITIVE FOR DVT WITHIN THE LEFT LEG. THE AGE OF THIS IS NOT DETERMINED.
[2018-09-07] MEDS: NON-FORMULARY DRUG (Mometasone/Formoterol [Dulera 200 Mcg/5 Mcg Inhaler] 2 PUFF) INHALATION SCH ×2 (11:03→19:33)
--- NOTE | 2018-09-07 11:45 | P.PN ---
Subjective Progress Note Date: 09/07/18 This is a 63-year-old female with history of DVT, hypertension, COPD, who presented to the hospital with symptoms of generalized malaise and fatigue with associated shortness of breath. Patient also noted some significant edema in her bilateral extremities. Patient was complaining of significant pain in her left leg, with evidence of cellulitis. She is currently on antibiotics. At the time of my examination this morning, her main complaint is pain in her left leg. She also feels extremely fatigued. Breathing is overall stable. She had an echocardiogram with Doppler study performed which revealed an ejection fraction of 55-60%, moderate to severe TR and severe pulmonary hypertension. INR today is 6.4. We will give the patient 5 mg of vitamin K today. Hold the Coumadin. White blood cell count 14.4, hemoglobin 11, platelet count 101. Sodium 136, calcium 4.3, BUN 50, creatinine 1.0. T4 0.015 , free T4 3.1 and free T3 8.4 09/06/2018 Patient was seen and examined this morning, complaining mostly of significant pain in her left lower extremity. Anticoagulation continues to be on hold because of positive heme in stool. Blood pressure 95/40 with a heart rate of 90 , 97% on 3 L of oxygen. White blood cell count 9.5, hemoglobin 10.5, platelet count 119. Sodium 140, potassium 4.5, BUN 68, creatinine 1.0. 09/07/2018. The patient's is hemodynamically stable. Seen and examined this morning and mostly has complaints of significant left lower extremity edema and pain. She did receive a pain pill recently. Patient remains in atrial fibrillation with a heart rate that is not optimally controlled. She is not candidate for anticoagulation at this time due to positive stool for occult blood. Objective - Vital Signs Vital signs: Vital Signs Temp 98 F 09/07/18 08:00 Pulse 98 09/07/18 11:19 Resp 20 09/07/18 11:04 BP 111/62 09/07/18 08:00 Pulse Ox 96 09/07/18 08:00 Intake & Output 09/06/18 09/07/18 09/07/18 18:59 06:59 18:59 Intake Total 1100 Output Total 1400 500 Balance -300 -500 Weight 105.4 kg Intake: Intake, IV Titration 900 Amount Piperacillin-Tazobactam 3 50 .375 gm In Dextrose/Water 1 50ml.bag @ 12.5 mls/hr IVPB Q8HR [facility] Rx#: [id number] Sodium Chloride 0.9% 1, 600 000 ml @ 120 mls/hr IV . Q8H20M [facility] Rx#:[id number] Vancomycin 1,500 mg In 250 Sodium Chloride 0.9% 250 ml @ 125 mls/hr IVPB Q16H [facility] Rx#:[id number] Oral 200 Output: Urine 1400 500 Other: Voiding Method Bedside Commode # Voids 1 # Bowel Movements 1 1 - Exam GENERAL: 63-year-old female in no acute distress at the time of my examination. HEENT: Head is atraumatic, normocephalic. Pupils equal, round. Sclera anicteric. Conjunctiva are clear. Mucous membranes of the mouth are moist. Neck is supple. There is no elevated jugular venous pressure. No carotid bruit is heard. HEART EXAMINATION: Heart S1 and S2 irregularly irregular systolic murmur is heard. CHEST EXAMINATION: Lungs are clear to auscultation and precussion. No chest wall tenderness is noted on palpation or with deep breathing. ABDOMEN: Soft, nontender. Bowel sounds are heard. No organomegaly noted. EXTREMITIES: 1+ peripheral pulses with 3+ evidence of peripheral edema in her left lower extremity, considerable erythema and ecchymosis. One plus edema noted to the right lower extremity. Her left lower extremity is wrapped with Kerlix and Liam wrap. NEUROLOGIC patient is awake, alert and oriented X3. - Labs CBC & Chem 7: 09/06/18 06:41 09/07/18 05:50 Labs: Abnormal Lab Results - Last 24 Hours (Table) 09/07/18 Range/Units 05:50 Potassium 5.3 H (3.5-5.1) mmol/L BUN 68 H (7-17) mg/dL Glucose 100 H (74-99) mg/dL Microbiology - Last 24 Hours (Table) 09/02/18 18:05 Blood Culture - Preliminary Blood No Growth after 96 hours 09/03/18 23:30 Anaerobic Culture - Preliminary Leg - Left 09/03/18 23:30 Gram Stain - Final Leg - Left Wound Culture - Final Acinetobacter reji/haemol Assessment and Plan Assessment: #1 acute left foot wounds with cellulitis. #2 COPD exacerbation #3 hypertension #4 chronic pulmonary embolism on Coumadin, #5 hyperthyroidism. #6 anemia with a positive heme in stool Plan We will continue to hold the patient's Coumadin until GI evaluation is completed. Increase Toprol to 50 mg a.m. and 25 mg p.m. for better heart rate control. Continue other current medications. We will follow her closely. DISPENSING OPERATOR note has been reviewed, I agree with a documented findings and plan of care. Patient was seen and examined.
[2018-09-07] MEDS: PIPERACILLIN-TAZOBACTAM 3.375 GM in DEXTROSE/WATER 1 50ML.BAG IVPB SCH ×3 (12:04→23:45)
--- NOTE | 2018-09-07 13:59 | P.PN ---
Subjective Progress Note Date: 09/07/18 Principal diagnosis: Left lower extremity cellulitis, COPD, stable A 63-year-old female patient with known history of COPD and chronic hypoxic respiratory failure maintained on a combination of Dulera and Spiriva on outpatient basis regarding her COPD. The patient also has had previous history of recurrent DVT and pulmonary embolism and the patient has been on long-term anticoagulation with warfarin. She also has an IVC filter in place. The patient came into the hospital because of increased swelling and pain and redness in her left lower extremity. Apparently this has been going on for the past few days and the patient presented to the hospital because of increasing pain and erythema in the left leg. She was also having some progressive weakness and she was found to be in atrial fibrillation with rapid ventricular response and the patient was started on Cardizem drip at the time of admission. Cardiology consultation is also be obtained. No cough or sputum production. No hemoptysis or pleurisy. No altered mentation. No nausea or vomiting no worsening of shortness of breath and her dyspnea is at his baseline for now. The patient came into the hospital and the patient was diagnosed having cellulitis of the left lower extremity. She was seen by infectious disease. The leg is wrapped for now. She was started on a combination of antibiotics including Zosyn and vancomycin. Chest x-ray shows borderline cardiomegaly without any acute cardiopulmonary process. The echocardiogram was also repeated and the patient was found to have mild concentric left ventricular hypertrophy, EF around 55-60%, mild aortic sclerosis, severe pulmonary hypertension which is probably related to her chronic lung disease. The patient 's INR is at 6.4 today and this is obviously toxic without any indication for bleeding and the patient will be given 2 mg of vitamin K. Renal function is stable. On 09/05/2018 patient seen again in follow-up in the selective care unit. She is resting comfortably in bed, denies any distress, denies any shortness of breath, chest congestion or wheezing. Her COPD seems to be stable. Lung sounds are essentially clear to auscultation, she has occasional cough. Chest x -ray was negative for any acute findings. Her creatinine is increased to 1.15, and BUN is 67. Electrolytes are normal, INR is down to 1.7. Pulse ox on 3 L per nasal cannula 98%. Left leg wound cultures are positive for gram-negative bacilli. Patient is covered with a combination of Zosyn and vancomycin. On 09/07/2018 patient seen again in follow-up on selective care unit. Denies any breathing issues, she is having significant amount of discomfort to her left lower extremity. Left lower leg valerio reddened, and painful. Wound cultures were positive for Acetobacter baumanii, patient is covered with Zosyn and vancomycin, ID service is following. No ongoing fever or chills, patient is currently on 3 L per nasal cannula her pulse ox is 96%, she is hemodynamically stable, slightly tachycardic at times, with a heart rate up to 118 BPM, no altered mentation, lung sounds are clear to auscultation. Today's labs were reviewed, BNP was done only, sodium is 141, potassium is 5.3, B1 is 68 , creatinine 0.90 Objective - Vital Signs Vital signs: Vital Signs Temp 98 F 09/07/18 08:00 Pulse 118 H 09/07/18 12:00 Resp 20 09/07/18 12:00 BP 120/66 09/07/18 12:00 Pulse Ox 96 09/07/18 12:00 Intake & Output 09/06/18 09/07/18 09/07/18 18:59 06:59 18:59 Intake Total 1100 Output Total 1400 500 Balance -300 -500 Weight 105.4 kg Intake: Intake, IV Titration 900 Amount Piperacillin-Tazobactam 3 50 .375 gm In Dextrose/Water 1 50ml.bag @ 12.5 mls/hr IVPB Q8HR [facility] Rx#: [id number] Sodium Chloride 0.9% 1, 600 000 ml @ 120 mls/hr IV . Q8H20M [facility] Rx#:[id number] Vancomycin 1,500 mg In 250 Sodium Chloride 0.9% 250 ml @ 125 mls/hr IVPB Q16H [facility] Rx#:[id number] Oral 200 Output: Urine 1400 500 Other: Voiding Method Bedside Commode # Voids 1 # Bowel Movements 1 1 - Exam Gen. appearance the patient is calm, not in acute respiratory distress. Slightly tachycardic no significant tachypnea this point. She is not using excessive muscle breathing. Head exam was generally normal. There was no scleral icterus or corneal arcus. Mucous membranes were moist. Neck is supple and the patient is no JVDs no goiter or neck masses. She has or mental conditions. Lung sounds are clear, no wheezes, no rhonchi no rales. Cardiac exam revealed the PMI to be normally situated and sized. The rhythm was regular and no extrasystoles were noted during several minutes of auscultation. The first and second heart sounds were normal and physiologic splitting of the second heart sound was noted. There were no murmurs, rubs, clicks, or gallops.Abdominal exam revealed normal bowel sounds. The abdomen was soft, non- tender, and without masses, organomegaly, or appreciable enlargement of the abdominal aorta.Extremities: The upper extremities have excellent pulses they are symmetric, no significant petechiae or telangiectasia. No splinter hemorrhages were noted. The lower extremities have evidence of the bilateral lower extremity edema left considerably greater than the right. Left leg has evidence of the circumferential erythema that is present from the mid tibia onto the foot, there is evidence of some scant drainage it's on the dressing. It is serous in nature not grossly purulent. The area is tender to touch and has distinct warmth.. Neurologically the patient is awake and alert and there is no focal neurological deficit at this point - Labs CBC & Chem 7: 09/06/18 06:41 09/07/18 05:50 Labs: Abnormal Lab Results - Last 24 Hours (Table) 09/07/18 Range/Units 05:50 Potassium 5.3 H (3.5-5.1) mmol/L BUN 68 H (7-17) mg/dL Glucose 100 H (74-99) mg/dL Microbiology - Last 24 Hours (Table) 09/02/18 18:05 Blood Culture - Preliminary Blood No Growth after 96 hours 09/03/18 23:30 Anaerobic Culture - Preliminary Leg - Left 09/03/18 23:30 Gram Stain - Final Leg - Left Wound Culture - Final Acinetobacter reji/haemol Assessment and Plan Plan: 1 left lower extremity cellulitis. The patient has chronic edema related to previous DVTs of the left lower extremity. The patient came with increasing pain and erythema and drainage from the skin surface and the findings were consistent with a left lower extremity cellulitis in a patient is currently on a combination of Zosyn and vancomycin. The patient is also receiving local wound care with Silvadene wrap and an Liam wrap knee-high. Wound cultures were positive for Acinetobacter Baumanii 2 COPD, severe yet stable and the patient has no signs of exacerbation maintained on a combination of Dulera and Spiriva on outpatient basis 3 chronic hypoxic respiratory failure secondary to above 4 history of recurrent DVTs and pulmonary embolism maintained on lifelong articulation with warfarin. Patient has an IVC filter in place. 5 Coumadin toxicity without any signs of bleeding 6 degenerative arthritis 7 chronic smoker 8 hypertension 9 atrial fibrillation,, likely of a new onset. 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 Echocardiogram showing a preserved LV function. Patient is on long- term anticoagulation with warfarin Plan: Patient is stable from pulmonary standpoint, continue bronchodilators, continue deep breathing and coughing. Wound cultures were positive for Acinetobactor Baumanii, ID service is following, and managing the antibiotics. Ongoing fever or chills, but patient is still having significant amount of discomfort in the left lower extremity. Left lower leg is reddened and painful. Maintain pain control. From pulmonary standpoint there are no active issues at this time, we will follow with the patient on as-needed basis. I performed a history & physical examination of the patient and discussed their management with my nurse practitioner, Leena Booker. I reviewed the nurse practitioner's note and agree with the documented findings and plan of care. Lung sounds are clear. The findings and the impression was discussed with the patient. I attest to the documentation by the nurse practitioner. Time with Patient: Less than 30
[2018-09-07] MEDS ORDERED: FUROSEMIDE 10 MG/ML 4 ML VIAL IV STA (17:49)
[2018-09-07] MEDS ORDERED: WARFARIN 7.5 MG TAB PO SCH (18:00)
--- NOTE | 2018-09-07 21:40 | PN ---
PROGRESS NOTE DATE OF SERVICE: 09/07/2018. PRESENTING COMPLAINT: Left leg cellulitis. INTERVAL HISTORY: This patient presents with left lower extremity cellulitis, COPD exacerbation, acute cor pulmonale and a supratherapeutic INR with epistaxis. Vitamin K had to be given. The patient had complained of more pain, some swelling of the left lower extremity. I did order Doppler ultrasound earlier today that came back with questionable acute DVT. I did order subsequent subcutaneous Lovenox. Dr. Henderson is following the patient for cellulitis. REVIEW OF SYSTEMS: Done for constitutional, cardiovascular, GI, pulmonary and relevant findings as above. CURRENT MEDICATIONS: Reviewed and include Silvadene cream, vancomycin, IV Zosyn, p.o. Lasix. PHYSICAL EXAMINATION: VITAL SIGNS: Temperature 96.9, pulse 106, respiration 18, blood pressure 120/71, pulse ox 96% on 3 L. GENERAL APPEARANCE: Sitting up. Not in distress. EYES: Pupils equal. Conjunctivae normal. HEENT: External appearance of nose and ears normal. Oral cavity normal. NECK: JVD unable to assess. Mass not palpable. RESPIRATORY: Effort increased. LUNGS decreased breath sounds. CARDIOVASCULAR: Heart sounds irregular. Some edema is present. ABDOMEN: Soft, nontender. Liver and spleen not palpable. PSYCHIATRY: Alert and oriented times three. Mood and affect normal. EXTREMITIES: Cellulitis left lower extremity with some breakdown of skin. Edema is present. INVESTIGATIONS: Potassium 5.3, BUN 68, creatinine 0.90. ASSESSMENT: 1. Acute left leg cellulitis growing Acinetobacter Baumannii with some clinical response. 2. Acute left lower extremity deep vein thrombosis could be acute, not too sure by the reports. 3. Acute chronic obstructive pulmonary disease exacerbation in an ex-smoker with steroid and oxygen-dependent. 4. Chronic hypoxic respiratory failure on 3 L oxygen at home from underlying chronic obstructive pulmonary disease. 5. Essential hypertension. 6. Chronic pulmonary embolism chronically on Coumadin. 7. Acute on chronic cor pulmonale, a combination of chronic secondary to chronic obstructive pulmonary disease and pulmonary embolism. 8. Coumadin toxicity. The patient is status post vitamin K. 9. Genetic blood clotting disorder, patient does not know exactly the diagnosis. 10.Anxiety not otherwise specified. 11.Obesity; BMI 36.9. 12.Persistent atrial fibrillation, rate uncontrolled on presentation. PLAN: Since the patient's INR is subtherapeutic, the patient has been put on Lovenox 100 mg subcu q.12h. We will put the patient back on Coumadin and from there. MMODL / IJN: [id number] /
[2018-09-07] MEDS: METOPROLOL SUCCINATE (ER) 25 MG TAB.ER.24H PO SCH (23:02)
[2018-09-07] MEDS: WARFARIN 5 MG TAB PO SCH (23:02)
[2018-09-07] MEDS: ENOXAPARIN 100 MG/ML SYRINGE SQ SCH (23:02)
[2018-09-08] MEDS: IPRATROPIUM-ALBUTEROL 3 ML NEB INHALATION SCH ×6 (00:23→21:15)
[2018-09-08] MEDS: VANCOMYCIN 1,500 MG in SODIUM CHLORIDE 0.9% 250 ML IVPB SCH ×2 (02:15→17:19)
[2018-09-08] MEDS: HYDROcodone/APAP 10-325MG 1 EACH TAB PO PRN ×5 (04:22→22:37)
[2018-09-08 07:21] LABS: Calcium 8.9 mg/dL (8.4-10.2)
[2018-09-08] MEDS: PIPERACILLIN-TAZOBACTAM 3.375 GM in DEXTROSE/WATER 1 50ML.BAG IVPB SCH ×2 (08:18→21:00)
[2018-09-08] MEDS: ENOXAPARIN 100 MG/ML SYRINGE SQ SCH ×2 (08:19→22:31)
[2018-09-08] MEDS: FUROSEMIDE 40 MG TAB PO SCH ×2 (08:19→17:20)
[2018-09-08] MEDS: METOPROLOL SUCCINATE (ER) 50 MG TAB.ER.24H PO SCH (08:19)
[2018-09-08] MEDS: VALSARTAN 160 MG TAB PO SCH (08:20)
[2018-09-08] MEDS: predniSONE 10 MG TAB PO SCH (08:20)
[2018-09-08] MEDS: HYDROCHLOROTHIAZIDE 12.5 MG CAP PO SCH (08:20)
--- NOTE | 2018-09-08 10:37 | P.PN ---
Subjective Progress Note Date: 09/08/18 This is a 63-year-old female with history of DVT, hypertension, COPD, who presented to the hospital with symptoms of generalized malaise and fatigue with associated shortness of breath. Patient also noted some significant edema in her bilateral extremities. Patient was complaining of significant pain in her left leg, with evidence of cellulitis. She is currently on antibiotics. At the time of my examination this morning, her main complaint is pain in her left leg. She also feels extremely fatigued. Breathing is overall stable. She had an echocardiogram with Doppler study performed which revealed an ejection fraction of 55-60%, moderate to severe TR and severe pulmonary hypertension. INR today is 6.4. We will give the patient 5 mg of vitamin K today. Hold the Coumadin. White blood cell count 14.4, hemoglobin 11, platelet count 101. Sodium 136, calcium 4.3, BUN 50, creatinine 1.0. T4 0.015 , free T4 3.1 and free T3 8.4 09/06/2018 Patient was seen and examined this morning, complaining mostly of significant pain in her left lower extremity. Anticoagulation continues to be on hold because of positive heme in stool. Blood pressure 95/40 with a heart rate of 90 , 97% on 3 L of oxygen. White blood cell count 9.5, hemoglobin 10.5, platelet count 119. Sodium 140, potassium 4.5, BUN 68, creatinine 1.0. 09/08/2018 Patient was seen and examined this morning, hemodynamically stable, heart rate in the 90s this morning. Continues to complain of significant pain in her left lower extremity. He needs to be in atrial fibrillation, when the pain gets intense in her leg, the heart rate at that time does go up into the low 100s, at this time it is around 90. Objective - Vital Signs Vital signs: Vital Signs Temp 97.2 F L 09/08/18 08:00 Pulse 102 H 09/08/18 08:37 Resp 18 09/08/18 04:00 BP 109/54 09/08/18 08:00 Pulse Ox 99 09/08/18 08:00 Intake & Output 09/07/18 09/08/18 09/08/18 18:59 06:59 18:59 Intake Total 175 240 Output Total 500 1999 Balance -325 -1999 240 Weight 103.2 kg Intake: Intake, IV Titration 175 Amount Piperacillin-Tazobactam 3 50 .375 gm In Dextrose/Water 1 50ml.bag @ 12.5 mls/hr IVPB Q8HR [facility] Rx#: [id number] Vancomycin 1,500 mg In 125 Sodium Chloride 0.9% 250 ml @ 125 mls/hr IVPB Q16H [facility] Rx#:[id number] Oral 240 Output: Urine 500 2000 Other: Voiding Method Bedside Commode - Exam PHYSICAL EXAMINATION: GENERAL: 63-year-old female in no acute distress at the time of my examination. HEENT: Head is atraumatic, normocephalic. Pupils equal, round. Sclera anicteric. Conjunctiva are clear. Mucous membranes of the mouth are moist. Neck is supple. There is no elevated jugular venous pressure. No carotid bruit is heard. HEART EXAMINATION: Heart S1 and S2 irregularly irregular systolic murmur is heard. CHEST EXAMINATION: Lungs are clear to auscultation and precussion. No chest wall tenderness is noted on palpation or with deep breathing. ABDOMEN: Soft, nontender. Bowel sounds are heard. No organomegaly noted. EXTREMITIES: 1+ peripheral pulses with3+ evidence of peripheral edema in her left lower extremity, considerable erythema and ecchymosis. One plus edema noted to the right lower extremity. NEUROLOGIC patient is awake, alert and oriented X3. . - Labs CBC & Chem 7: 09/06/18 06:41 09/08/18 05:48 Labs: Abnormal Lab Results - Last 24 Hours (Table) 09/08/18 Range/Units 05:48 BUN 58 H (7-17) mg/dL Creatinine 1.17 H (0.52-1.04) mg/dL Glucose 124 H (74-99) mg/dL Microbiology - Last 24 Hours (Table) 09/02/18 18:05 Blood Culture - Preliminary Blood No Growth after 120 hours Assessment and Plan Plan: Assessment and plan #1 acute left foot wounds with cellulitis. #2 COPD exacerbation #3 hypertension #4 chronic pulmonary embolism on Coumadin, #5 hyperthyroidism. #6 anemia with a positive heme in stool Plan From cardiology's perspective, we will continue the patient on her current medications. We will continue to follow. DNP note has been reviewed, I agree with a documented findings and plan of care. Patient was seen and examined.
--- NOTE | 2018-09-08 10:53 | CDI ---
Last Revision, November 2017 Documentation Clarification Form Date: 09/08/2018 10:44:05 AM From: Angie BritoJAZMINE, CCDS Admit Date: 09/02/2018 5:47:00 PM Patient Name: Kamla Hannah Visit Number: [id number] Discharge Date: ATTENTION: The Clinical Documentation Specialists (CDI) and [facility] Coding Staff appreciate your assistance in clarifying documentation. Please respond to the clarification below the line at the bottom and electronically sign. The CDI & [facility] Coding staff will review the response and follow-up if needed. Please note: Queries are made part of the Legal Health Record. If you have any questions, please contact the author of this message via ITS. Simone Montenegro MD: A diagnosis of anemia lacks specificity to accurately reflect your patients severity of condition and clarification is needed. Per the 09/06 & 09/07 cardiology progress notes: "Anemia with a positive heme in stool." History/Risk Factors: Chronic & recurrent PEs & DVTs on lifelong anticoagulants , COPD, Atrial fibrillation, Chronic respiratory failure, Hypertension & alcohol & nicotine abuse. Clinical indicators: Presented with left lower extremity cellulitis, cough & wheezing. Diagnosed with LLE cellulitis, possible Acute on chronic DVT. COPD exacerbation & Coumadin toxicty. Hemoglobin: 12.3 - 11.0 - 10.5 - 10.5 Hematocrit: 41.1 - 35.2 - 34.4 - 32.2 Stool Occult blood positive on 09/04. Treatment: Coumadin held until 09/07, restarted per attending. GI evaluation (no GI consult ordered at this time.) In order to capture the severity of condition, please clarify the type of anemia and etiology if known: Acute blood loss anemia Acute on chronic blood loss anemia Chronic blood loss anemia Iron deficiency anemia Hemolytic anemia Drug induced anemia Nutritional anemia Anemia of chronic kidney disease Unable to determine Other, please specify MTDD
[2018-09-08] MEDS: NON-FORMULARY DRUG (Mometasone/Formoterol [Dulera 200 Mcg/5 Mcg Inhaler] 2 PUFF) INHALATION SCH ×2 (11:54→21:20)
[2018-09-08] MEDS: GABAPENTIN 100 MG CAP PO SCH ×2 (16:15→22:32)
[2018-09-08 18:06] LABS: INR 1.2 (<1.2); Prothrombin Time 11.7 sec (9.0-12.0)
--- NOTE | 2018-09-08 20:51 | PN ---
PROGRESS NOTE DATE OF SERVICE: 09/08/2018 PRESENTING COMPLAINT: Left leg cellulitis. INTERVAL HISTORY: This patient presented with left lower extremity cellulitis, COPD exacerbation, acute cor pulmonale and supratherapeutic INR with epistaxis. Patient also has got acute DVT in the left lower extremity, for which patient was started on Lovenox. Patient had been refusing an Liam wrap. REVIEW OF SYSTEMS: Done for constitutional, cardiovascular, GI, pulmonary, dermatologic; relevant findings as above. Patient has been tolerating a diet. Still has swelling of the lower extremities. CURRENT MEDICATIONS: Reviewed. They include: 1. IV Zosyn. 2. Vancomycin. 3. Silvadene. 4. Oral Lasix. PHYSICAL EXAMINATION: Afebrile, pulse 102, respiration 20, blood pressure 109/54, pulse ox 99% on 2 L. GENERAL APPEARANCE: Sitting on the edge of the bed, awake. EYES: Pupils equal. Conjunctivae normal. HEENT: External appearance of nose and ears normal. Oral cavity normal. NECK: JVD unable to assess. Mass not palpable. RESPIRATORY: Effort increased. LUNGS: Decreased breath sounds. CARDIOVASCULAR: Heart sounds irregular. Some edema is present. ABDOMEN: Soft, nontender. Liver and spleen not palpable. PSYCHIATRY: Alert and oriented x3. Mood and affect normal. EXTREMITIES: Cellulitis of left lower extremity with breakdown of skin. INVESTIGATIONS: BUN 58, creatinine 1.17, potassium 5. ASSESSMENT: 1. Acute left lower extremity cellulitis growing Acinetobacter baumannii, with some clinical response. 2. Acute left lower extremity deep venous thrombosis; could be acute versus subacute. 3. Acute chronic obstructive pulmonary disease exacerbation in an ex-smoker, steroid- and oxygen-dependent. 4. Chronic hypoxic respiratory failure, on 3 L oxygen at home, from underlying chronic obstructive pulmonary disease. 5. Essential hypertension. 6. Chronic pulmonary embolism, chronically on Coumadin. 7. Acute on chronic cor pulmonale secondary to chronic obstructive pulmonary disease and pulmonary embolism. 8. Coumadin toxicity. Patient initially did get vitamin K. 9. Genetic blood clotting disorder. Patient does not know exactly the diagnosis. 10.Anxiety not otherwise specified. 11.Obesity; body mass index of 36.9. 12.Persistent atrial fibrillation, rate uncontrolled on presentation. Currently remains in atrial fibrillation with rate holding around 100. PLAN: I had a rather lengthy talk with the patient about the importance of getting her legs up or the edema will never come down. She is certainly agreeable to the same. We will do Kerlix and Liam wraps 24/06. Patient has been put back on Coumadin. Will follow the same. MMMADELYNL / IJN: [id number] /
[2018-09-08] MEDS: WARFARIN 5 MG TAB PO SCH (22:30)
[2018-09-08] MEDS: METOPROLOL SUCCINATE (ER) 25 MG TAB.ER.24H PO SCH (22:31)
[2018-09-09] MEDS: PIPERACILLIN-TAZOBACTAM 3.375 GM in DEXTROSE/WATER 1 50ML.BAG IVPB SCH ×3 (00:15→14:51)
[2018-09-09] MEDS: IPRATROPIUM-ALBUTEROL 3 ML NEB INHALATION SCH ×6 (01:24→21:06)
[2018-09-09 06:09] LABS: Calcium 8.8 mg/dL (8.4-10.2); Potassium 4.5 mmol/L (3.5-5.1)
[2018-09-09 06:15] LABS: INR 1.4 (<1.2); Prothrombin Time 13.4 sec (9.0-12.0)
[2018-09-09] MEDS: ENOXAPARIN 100 MG/ML SYRINGE SQ SCH ×2 (08:21→22:26)
[2018-09-09] MEDS: predniSONE 10 MG TAB PO SCH (08:22)
[2018-09-09] MEDS: METOPROLOL SUCCINATE (ER) 50 MG TAB.ER.24H PO SCH (08:22)
[2018-09-09] MEDS: GABAPENTIN 100 MG CAP PO SCH ×3 (08:22→22:29)
[2018-09-09] MEDS: HYDROCHLOROTHIAZIDE 12.5 MG CAP PO SCH (08:22)
[2018-09-09] MEDS: VALSARTAN 160 MG TAB PO SCH (08:22)
[2018-09-09] MEDS: FUROSEMIDE 40 MG TAB PO SCH ×2 (08:22→17:08)
[2018-09-09] MEDS: HYDROcodone/APAP 10-325MG 1 EACH TAB PO PRN ×3 (08:26→19:49)
[2018-09-09] MEDS: VANCOMYCIN 1,500 MG in SODIUM CHLORIDE 0.9% 250 ML IVPB SCH (08:32)
[2018-09-09] MEDS: NON-FORMULARY DRUG (Mometasone/Formoterol [Dulera 200 Mcg/5 Mcg Inhaler] 2 PUFF) INHALATION SCH ×2 (11:18→21:08)
--- NOTE | 2018-09-09 11:51 | P.PN ---
Subjective Progress Note Date: 09/09/18 This is a 63-year-old female with history of DVT, hypertension, COPD, who presented to the hospital with symptoms of generalized malaise and fatigue with associated shortness of breath. Patient also noted some significant edema in her bilateral extremities. Patient was complaining of significant pain in her left leg, with evidence of cellulitis. She is currently on antibiotics. At the time of my examination this morning, her main complaint is pain in her left leg. She also feels extremely fatigued. Breathing is overall stable. She had an echocardiogram with Doppler study performed which revealed an ejection fraction of 55-60%, moderate to severe TR and severe pulmonary hypertension. INR today is 6.4. We will give the patient 5 mg of vitamin K today. Hold the Coumadin. White blood cell count 14.4, hemoglobin 11, platelet count 101. Sodium 136, calcium 4.3, BUN 50, creatinine 1.0. T4 0.015 , free T4 3.1 and free T3 8.4 09/06/2018 Patient was seen and examined this morning, complaining mostly of significant pain in her left lower extremity. Anticoagulation continues to be on hold because of positive heme in stool. Blood pressure 95/40 with a heart rate of 90 , 97% on 3 L of oxygen. White blood cell count 9.5, hemoglobin 10.5, platelet count 119. Sodium 140, potassium 4.5, BUN 68, creatinine 1.0. 09/08/2018 Patient was seen and examined this morning, hemodynamically stable, heart rate in the 90s this morning. Continues to complain of significant pain in her left lower extremity. He needs to be in atrial fibrillation, when the pain gets intense in her leg, the heart rate at that time does go up into the low 100s, at this time it is around 90. 09/09/2018 Patient seen and examined this morning, heart rate is stable, blood pressure stable. Very frustrated about pain management. Objective - Vital Signs Vital signs: Vital Signs Temp 97.2 F L 09/09/18 04:00 Pulse 123 H 09/09/18 08:00 Resp 16 09/09/18 11:26 BP 141/70 09/09/18 08:00 Pulse Ox 95 09/09/18 08:00 Intake & Output 09/08/18 09/09/18 09/09/18 18:59 06:59 18:59 Intake Total 240 Output Total 700 1950 Balance -460 -1950 Weight 102.8 kg Intake: Oral 240 Output: Urine 700 1950 Other: Voiding Method Bedside Commode Bedside Commode # Voids 1 1 # Bowel Movements 0 1 - Exam PHYSICAL EXAMINATION: GENERAL: 63-year-old female in no acute distress at the time of my examination. HEENT: Head is atraumatic, normocephalic. Pupils equal, round. Sclera anicteric. Conjunctiva are clear. Mucous membranes of the mouth are moist. Neck is supple. There is no elevated jugular venous pressure. No carotid bruit is heard. HEART EXAMINATION: Heart S1 and S2 irregularly irregular systolic murmur is heard. CHEST EXAMINATION: Lungs are clear to auscultation and precussion. No chest wall tenderness is noted on palpation or with deep breathing. ABDOMEN: Soft, nontender. Bowel sounds are heard. No organomegaly noted. EXTREMITIES: 1+ peripheral pulses with3+ evidence of peripheral edema in her left lower extremity, considerable erythema and ecchymosis. One plus edema noted to the right lower extremity. NEUROLOGIC patient is awake, alert and oriented X3. . - Labs CBC & Chem 7: 09/06/18 06:41 09/09/18 05:12 Labs: Abnormal Lab Results - Last 24 Hours (Table) 09/08/18 09/09/18 09/09/18 Range/Units 17:48 05:12 05:12 PT 13.4 H (9.0-12.0) sec INR 1.2 H 1.4 H (<1.2) BUN 54 H (7-17) mg/dL Creatinine 1.08 H (0.52-1.04) mg/dL Glucose 118 H (74-99) mg/dL Microbiology - Last 24 Hours (Table) 09/03/18 23:30 Anaerobic Culture - Preliminary Leg - Left 09/02/18 18:05 Blood Culture - Final Blood No Growth after 144 hours Assessment and Plan Plan: Assessment and plan #1 acute left foot wounds with cellulitis. #2 COPD exacerbation #3 hypertension #4 chronic pulmonary embolism on Coumadin, #5 hyperthyroidism. #6 anemia with a positive heme in stool Plan From cardiology's perspective, we will continue the patient on her current medications. we will follow her along with you now on an as-needed basis only, please don't hesitate to call with any questions. DNP note has been reviewed, I agree with a documented findings and plan of care. Patient was seen and examined.
--- NOTE | 2018-09-09 15:03 | CONS ---
DATE OF CONSULTATION: 09/08/2018 This is a 63-year-old pleasant female. She came with swelling of the left lower extremity with some blister formation and cellulitis. Patient has been admitted with local wound care. Patient has history of chronic DVT and PE. Patient is on Coumadin. Patient also has history of coronary artery disease, under the care of Cardiology. Patient was seen in her room. Her vital signs stable. Neck is supple. Trachea central. She has crackles bilateral. Abdomen is soft. Femorals are 1+. Posterior tibial vessel is not palpable. Patient has a blister on the medial aspect of the left ankle which has been opened up with some mild cellulitis at this point. Patient has been using Silvadene cream, leg elevation and compression dressing. At this point, patient does not need any major surgical intervention. I have discussed with her and we will continue the same treatment and Infectious Disease on consult. Follow with you. ZULEMAL / IJN: [id number] / EBONI
[2018-09-09] MEDS: WARFARIN 5 MG TAB PO SCH (17:08)
[2018-09-09 20:09] VITALS: RESP 18
--- NOTE | 2018-09-09 21:00 | PN ---
PROGRESS NOTE DATE OF SERVICE: 09/09/18. PRESENTING COMPLAINT: Left leg cellulitis. INTERVAL HISTORY: This patient presents with left lower extremity cellulitis, now has got a pressure dressing for which she is doing much better. Pain is better controlled. Also had COPD exacerbation, acute cor pulmonale, and also getting Lovenox for subtherapeutic INR. Also found to have a DVT in the left lower extremity. Overall doing much better. Heart rate is controlled. REVIEW OF SYSTEMS: Done for constitutional, cardiovascular, GI, pulmonary; relevant findings as above. CURRENT MEDICATIONS: Reviewed they include IV Zosyn, Silvadene cream, vancomycin. PHYSICAL EXAMINATION: Temperature 96.5, pulse 97, respirations 16, blood pressure 138/64, pulse ox 96% on 3 L. GENERAL APPEARANCE: Sitting up, awake. EYES: Pupils equal. Conjunctivae normal. HEENT: External appearance of nose and ears normal. Oral cavity normal. NECK: JVD unable to assess. Mass not palpable. RESPIRATORY: Effort increased. Lungs, decreased breath sounds. CARDIOVASCULAR: Heart sounds irregular. Some edema present. ABDOMEN: Soft, nontender. Liver and spleen not palpable. PSYCHIATRY: Alert and oriented x3. Mood and affect normal. EXTREMITIES: Left leg in a dressing. INVESTIGATIONS: INR 1.4, potassium 4.5, BUN 54, creatinine 1.08. ASSESSMENT: 1. Acute left lower extremity cellulitis growing Acinetobacter baumannii with some clinical response. 2. Acute left lower extremity DVT could be acute versus subacute. 3. Acute chronic chronic obstructive pulmonary disease exacerbation in an ex-smoker, steroid and oxygen dependent. 4. Chronic hypoxic respiratory failure on 3 L oxygen at home from underlying chronic obstructive pulmonary disease. 5. Essential hypertension. 6. Chronic pulmonary embolism chronically on insulin. 7. Acute on chronic cor pulmonale secondary to chronic obstructive pulmonary disease and pulmonary embolism. 8. Coumadin toxicity. Patient initially did get vitamin K. 9. Genetic blood clotting disorder. The patient does not know exactly what it is. 10.Anxiety, not otherwise specified. 11.Obesity; BMI 36.9. 12.Persistent atrial fibrillation, rate uncontrolled on presentation. Currently rate is better controlled. PLAN: Continue current medication and treatment plan. The patient is back on Coumadin. We will switch the patient to oral antibiotic. Continue with compression dressing and patient can be discharged tomorrow. MMODL / IJN: [id number] /
[2018-09-09] MEDS: CEFDINIR 300 MG CAP PO SCH (22:26)
[2018-09-09] MEDS: METOPROLOL SUCCINATE (ER) 25 MG TAB.ER.24H PO SCH (22:27)
[2018-09-10] MEDS: IPRATROPIUM-ALBUTEROL 3 ML NEB INHALATION SCH ×6 (00:15→19:46)
[2018-09-10] MEDS: HYDROcodone/APAP 10-325MG 1 EACH TAB PO PRN ×2 (06:26→13:58)
[2018-09-10 06:58] LABS: Calcium 8.6 mg/dL (8.4-10.2); Potassium 4.9 mmol/L (3.5-5.1)
[2018-09-10] MEDS: ENOXAPARIN 100 MG/ML SYRINGE SQ SCH (07:54)
[2018-09-10] MEDS: METOPROLOL SUCCINATE (ER) 50 MG TAB.ER.24H PO SCH (07:55)
[2018-09-10] MEDS: VALSARTAN 160 MG TAB PO SCH (07:55)
[2018-09-10] MEDS: CEFDINIR 300 MG CAP PO SCH (07:55)
[2018-09-10] MEDS: predniSONE 10 MG TAB PO SCH (07:55)
[2018-09-10] MEDS: FUROSEMIDE 40 MG TAB PO SCH ×2 (07:55→16:33)
[2018-09-10] MEDS: HYDROCHLOROTHIAZIDE 12.5 MG CAP PO SCH (07:55)
[2018-09-10] MEDS: GABAPENTIN 100 MG CAP PO SCH ×2 (07:55→16:33)
[2018-09-10] MEDS: NON-FORMULARY DRUG (Mometasone/Formoterol [Dulera 200 Mcg/5 Mcg Inhaler] 2 PUFF) INHALATION SCH (08:45)
[2018-09-10 10:54] VITALS: BMI 39.2
[2018-09-10 16:09] VITALS: BP 127/67; PULSE 110; TEMP 97.6
--- NOTE | 2018-09-10 16:16 | DS ---
DISCHARGE SUMMARY DATE OF ADMISSION: 09/02/2018 DATE OF DISCHARGE: 09/10/2018 FINAL DIAGNOSES: 1. Acute left lower extremity cellulitis growing Acinetobacter baumannii. 2. Acute left lower extremity deep venous thrombosis; could be acute versus subacute. 3. Acute chronic obstructive pulmonary disease exacerbation in an ex-smoker, steroid- and oxygen-dependent. 4. Chronic hypoxic respiratory failure, on 3 L oxygen at home, from underlying chronic obstructive pulmonary disease. 5. Essential hypertension. 6. Chronic pulmonary embolism, chronically on Coumadin. 7. Acute on chronic cor pulmonale secondary to chronic obstructive pulmonary disease and pulmonary embolism. 8. Coumadin toxicity. Initially patient did get vitamin K. 9. Genetic blood clotting disorder. Patient is not sure exactly what it is. 10.Anxiety not otherwise specified. 11.Obesity with body mass index of 36.9. 12.Persistent atrial fibrillation, rate uncontrolled on presentation. CONSULTATIONS: 1. Dr. Deirdre Sanchez from Cardiology. 2. Dr. Henderson from Infectious Disease. 3. Dr. Martínez from Pulmonary. 4. Dr. Edward Hyde from Vascular. HOSPITAL COURSE: This patient presented with cellulitis of the left lower extremity with wound. Cultures did come back growing Acinetobacter baumannii; responded well to antibiotics, Silvadene cream and compression wraps. Patient has also had atrial fibrillation; rate is now better controlled. Two-D echo showed an EF of 55% to 60% and severe pulmonary hypertension, moderate to severe tricuspid regurgitation, moderate pulmonic regurgitation. Patient was also seen by Dr. Henderson, but she would like to follow up with another ID physician. On day of discharge, care was discussed with the patient. PHYSICAL EXAMINATION: Temperature 97.8, pulse 93, respiration 16, blood pressure 133/72, pulse ox 99% on 3 L. LUNGS: Decreased breath sounds. CARDIOVASCULAR: First and second sounds normal. Liam wraps on the lower extremity. LABS: INR 1.4, BUN 54, creatinine 1.46. DISCHARGE MEDICATIONS AND FOLLOWUP: 1. Ventolin HFA 2 puffs q.6 p.r.n. 2. Dulera 200/5 two puffs b.i.d. 3. Diovan 160 mg p.o. daily. 4. Prednisone 10 mg a day. 5. Omnicef 300 mg p.o. b.i.d.; 14 capsules. 6. Lovenox 100 mg subcutaneously q.12 until INR is therapeutic. 7. Lasix 40 mg a day. 8. Neurontin 100 mg p.o. t.i.d. 9. [place] 10 one tablet q.4 p.r.n. 10.DuoNeb q.i.d. 11.Toprol-XL 50 mg p.o. daily. 12.Toprol-XL 25 mg at bedtime. 13.Silvadene cream topically b.i.d. 14.Coumadin 5 mg a day. 15.Labs CBC, BMP, INR in 3 to 4 days. DISPOSITION: [facility] bed. Follow up with Dr. Rand. Follow up with Dr. Bowser in 2 weeks. Follow up with Dr. Hyde in 2 weeks. Discussion and discharge planning more than 35 minutes. MMODL / IJN: [id number] /
[2018-09-10] MEDS: WARFARIN 5 MG TAB PO SCH (16:33)
== END 2018-09-10 19:57 | DRG 602 ==
LOC: EC 16:47 → 6SEL 17:47
PROVIDERS: ADMIT Hospitalist; ATTEND Hospitalist
DX: L03.116 Cellulitis of left lower limb (principal); I26.09 Other pulmonary embolism with acute cor pulmonale; I48.1 Persistent atrial fibrillation; I82.402 Acute embolism and thrombosis of unspecified deep veins of left lower extremity; J44.1 Chronic obstructive pulmonary disease with (acute) exacerbation; J96.11 Chronic respiratory failure with hypoxia; K92.1 Melena; D68.8 Other specified coagulation defects; I27.82 Chronic pulmonary embolism; B96.89 Other specified bacterial agents as the cause of diseases classified elsewhere; I08.8 Other rheumatic multiple valve diseases; M19.90 Unspecified osteoarthritis, unspecified site; R04.0 Epistaxis; D64.9 Anemia, unspecified; E05.90 Thyrotoxicosis, unspecified without thyrotoxic crisis or storm; E66.9 Obesity, unspecified; Z87.891 Personal history of nicotine dependence; F41.9 Anxiety disorder, unspecified; I10 Essential (primary) hypertension; I25.10 Atherosclerotic heart disease of native coronary artery without angina pectoris; I27.20 Pulmonary hypertension, unspecified; T45.515A Adverse effect of anticoagulants, initial encounter; Z68.36 Body mass index [BMI] 36.0-36.9, adult; Z79.01 Long term (current) use of anticoagulants; Z79.51 Long term (current) use of inhaled steroids; Z79.899 Other long term (current) drug therapy; Z82.5 Family history of asthma and other chronic lower respiratory diseases; Z86.718 Personal history of other venous thrombosis and embolism; Z99.81 Dependence on supplemental oxygen; Z87.01 Personal history of pneumonia (recurrent); Z79.52 Long term (current) use of systemic steroids; Z83.2 Family history of diseases of the blood and blood-forming organs and certain disorders involving the immune mechanism; Z84.1 Family history of disorders of kidney and ureter; I48.2 Chronic atrial fibrillation; Z95.828 Presence of other vascular implants and grafts; Z60.2 Problems related to living alone
CPT/HCPCS: 36415; 71046; 80048; 80202; 82272; 83605; 84439; 84443; 84481; 85025; 85027; 85610; 87040; 87070; 87075; 87077; 87186; 87205; 93306; 94640; 94760; 96365; 96366; 99285